=== PATIENT | male | born 1940 | race Caucasian/White ===

== ENCOUNTER 2017-11-16 11:11 | Day surgery (SDC) | payer MEDICARE ==
[2017-11-14 11:29] VITALS: BMI 24.7
[~2017-11-16 11:11] MED LIST: LACTATED RINGERS 1,000 ML IV ONE; LIDOCAINE 1% 20 ML VIAL (10MG/ML) FOR IV START INTRADERMA PRN
[2017-11-16 11:57] VITALS: RESP 16; TEMP 98
[2017-11-16] MEDS ORDERED: LIDOCAINE 1% INJ 10MG/ML (20 ML MDV) ONE (13:11)
[2017-11-16] MEDS ORDERED: PROPOFOL 10 MG/ML 20 ML VIAL IV ONE (13:11)
--- NOTE | 2017-11-16 13:31 | P.PCN ---
Date of Procedure: 11/16/17 Procedure(s) Performed: Brief history: Patient is a pleasant 77-year-old white male, scheduled for an elective upper endoscopy as well as colonoscopy as a part of evaluation of iron deficiency anemia. He was recently noted to have a hemoglobin of 7.9 g/dL and iron indices consistent with iron deficiency anemia. He is been complaint of rectal urgency and frequency but no rectal bleeding. Never had colonoscopy in the past. Procedure performed: Esophagogastroduodenoscopy with biopsy Attempted colonoscopy with biopsy Preoperative diagnosis: Iron deficiency anemia/rectal urgency and rectal frequency Anesthesia: [facility] Procedure: After informed consent was obtained from the patient was brought into the endoscopy unit and IV sedation was administered by anesthesia under continuous monitoring. Initially upper endoscopy was done. The Olympus GF 160 video endoscope was inserted inserted into the mouth and esophagus intubated without any difficulty and was gradually advanced into the stomach and duodenum and carefully examined. The bulb and second part of the duodenum appeared normal. Biopsies were done from duodenum to rule out celiac disease. The scope was then withdrawn into the stomach adequately insufflated with air and upon careful examination the antrum and body, cardia and fundus appeared normal. The scope was then withdrawn into the esophagus. The GE junction was located at 40 cm to the incisors. It appeared regular with 2 superficial erosions consistent with LA grade a reflux esophagitis. Rest of the esophagus appeared normal. Patient tolerated the procedure well. At this time the patient continued to remain sedation. Initial digital rectal examination was normal. Olympus CF 160 video colonoscope was then inserted into the rectum and gradually advanced to the the distal sigmoid colon at at 22 cm from the anal verge there was an ulcerated large sigmoid colon mass identified with significant luminal narrowing. I removed the scope and pediatric colonoscope was then introduced into the rectum and advanced into the distal sigmoid colon and despite multiple times I was not able to pass the scope through the ulcerated mass. At this time multiple biopsies were done from the sigmoid mass. The rectum appeared normal. Retroflexion was performed in the rectum and no lesions were noted. Patient tolerated the procedure well. Impression: 1. Upper endoscopy revealed mild reflux esophagitis but no evidence of peptic ulcer disease 2. Colonoscopy revealed near obstructing distal sigmoid colon ulcerated mass in the scope could not be advanced beyond the mass. Status post multiple biopsies. Recommendations: Findings of this examination were discussed with the patient as well as as his family. He was advised to follow with the biopsy results. He will be scheduled for a CT of the abdomen and pelvis. He will be seen in the office next week.
[2017-11-16 14:10] VITALS: BP 125/67; PULSE 62
== END 2017-11-16 14:32 | disposition home or self-care (01) ==
LOC: ORWHC2ENDO 11:11
PROVIDERS: ATTEND Internal Medicine Gastroenterology
DX: C18.7 Malignant neoplasm of sigmoid colon (principal); K21.0 Gastro-esophageal reflux disease with esophagitis; K22.10 Ulcer of esophagus without bleeding; D50.9 Iron deficiency anemia, unspecified; R15.2 Fecal urgency; I48.91 Unspecified atrial fibrillation; I10 Essential (primary) hypertension; Z88.0 Allergy status to penicillin; Z79.899 Other long term (current) drug therapy; Z87.891 Personal history of nicotine dependence
CPT/HCPCS: 88305; 43239; 45331; J2001; J2704

== ENCOUNTER → 2017-12-05 | Outpatient (CLI) | payer MEDICARE ==
[2017-12-05 15:53] LABS: Anisocytosis Slight; Basophils % (A) 0 %; Eosinophils # (A) 0.2 k/uL (0-0.7); Eosinophils % (A) 3 %; HCT 32.9 % (39.0-53.0); HGB 9.7 gm/dL (13.0-17.5); Hypochromasia Marked; Lymphocytes # (A) 1.3 k/uL (1.0-4.8); Lymphocytes % (A) 21 %; MCHC 29.3 g/dL (31.0-37.0); MCV 78.3 fL (80.0-100.0); Mean Platelet Volume 6.6; Microcytosis Slight; Monocytes # (A) 0.3 k/uL (0-1.0); Monocytes % (A) 4 %; Neutrophils # (A) 4.5 k/uL (1.3-7.7); Neutrophils % (A) 70 %; Platelet Count 280 k/uL (150-450); RDW 19.2 % (11.5-15.5); WBC 6.4 k/uL (3.8-10.6)
[2017-12-05 15:57] LABS: Anion Gap 12 mmol/L; Blood Urea Nitrogen 11 mg/dL (9-20); Calcium 9.3 mg/dL (8.4-10.2); Carbon Dioxide 26 mmol/L (22-30); Chloride 105 mmol/L (98-107); Glucose 90 mg/dL (74-99); Potassium 4.2 mmol/L (3.5-5.1); Sodium 143 mmol/L (137-145)
[2017-12-05 17:01] LABS: INR 1.1 (<1.2); Partial Thromboplastin Time 24.8 sec (22.0-30.0); Prothrombin Time 10.3 sec (9.0-12.0)
== END | disposition home or self-care (01) ==
LOC: LABWHC1 14:43
PROVIDERS: ATTEND Surgery
DX: C18.9 Malignant neoplasm of colon, unspecified (principal)
CPT/HCPCS: 36415; 80048; 85025; 85610; 85730

== ENCOUNTER 2017-12-11 10:08 | Inpatient (IN) | payer MEDICARE ==
[2017-12-06 12:51] VITALS: BMI 24.3
[~2017-12-11 10:08] MED LIST changes: +DEXAMETHASONE SOD PHOSPHATE 10 MG/ML 1 ML VIAL IV ONE; +HEPARIN SODIUM,PORCINE 5,000 UNIT/ML 1 ML VIAL SQ ONE; -LACTATED RINGERS 1,000 ML IV ONE; +LACTATED RINGERS 1,000 ML IV SCH; -LIDOCAINE 1% 20 ML VIAL (10MG/ML) FOR IV START INTRADERMA PRN; +MORPHINE SULFATE 4MG/4ML SYRG IV PRN; +ONDANSETRON 4 MG/2 ML VIAL IVP ONE; +ceFAZolin IN SWFI 2 GM/20 ML SYRINGE IVP ONE; +metroNIDAZOLE-NS PMX 500 MG in SALINE 1 100ML.BAG IVPB ONE
[2017-12-11] MEDS ORDERED: LIDOCAINE 1% 20 ML VIAL (10MG/ML) FOR IV START INTRADERMA ONE (11:05)
[2017-12-11] MEDS ORDERED: CLINDAMYCIN 600 MG in DEXTROSE 5% IN WATER 50 ML IVPB STA ×2 (11:38)
[2017-12-11] MEDS ORDERED: SUCCINYLCHOLINE CHLORIDE 100 MG/5 ML SYR IV ONE (12:34)
[2017-12-11] MEDS ORDERED: ePHEDrine SULFATE/0.9% NACL/PF 50 MG/5 ML SYRINGE IV ONE (12:34)
[2017-12-11] MEDS ORDERED: fentaNYL (PF) 50 MCG/ML 2 ML AMP ONE (12:34)
[2017-12-11] MEDS ORDERED: ROCURONIUM BROMIDE 10 MG/ML 10 ML VIAL IV ONE (12:34)
[2017-12-11] MEDS ORDERED: LIDOCAINE 1% INJ 10MG/ML (20 ML MDV) ONE (12:34)
[2017-12-11] MEDS ORDERED: NEOSTIGMINE 1 MG/ML 10 ML VIAL ONE (12:34)
[2017-12-11] MEDS ORDERED: PROPOFOL 10 MG/ML 20 ML VIAL IV ONE (12:34)
[2017-12-11] MEDS ORDERED: GLYCOPYRROLATE 0.2 MG/ML 2 ML VIAL ONE (12:34)
[2017-12-11] MEDS ORDERED: BUPIVACAINE (PF) 0.25% 30 ML VIAL SQ ONE ×2 (13:00)
[2017-12-11] MEDS ORDERED: LACTATED RINGERS 1,000 ML IV ONE ×2 (13:10→14:38)
[2017-12-11] MEDS ORDERED: ONDANSETRON 4 MG/2 ML VIAL IVP ONE (15:32)
--- NOTE | 2017-12-11 15:32 | P.OP ---
Date of Procedure: 12/11/17 Preoperative Diagnosis: Colon adenocarcinoma Postoperative Diagnosis: Colon adenocarcinoma Procedure(s) Performed: Sigmoid colectomy with primary anastomosis Anesthesia: AMEYA Surgeon: Duong Delarosa Director Clinical Data #1: Kendall Malhotra Estimated Blood Loss (ml): 100 Pathology: other (Sigmoid colon) Condition: stable Disposition: floor Indications for Procedure: 77-year-old male presented originally to the surgical clinic after a colonoscopy revealed a near obstructing mass in the sigmoid. Biopsies were taken at that time that revealed colon adenocarcinoma. This was at approximately the 22 cm ariel. After discussion with the patient was decided to remove this portion of his colon. Patient was excellent the risks, benefits and alternatives to the procedure. He did provide consent prior to attending the operating suite. Operative Findings: Sigmoid colon mass, adhered to move lower pelvic wall, bladder Description of Procedure: The patient was brought into the operating suite and placed in supine position on the operating table. Sedation was provided by anesthesia and the patient underwent endotracheal intubation. The patient was then placed in lithotomy position. The patient was then prepped and draped in regular sterile fashion. A supraumbilical vertical incision was made dissection was carried to the fascia the fascia was incised and a 12 mm port was placed. Pneumoperitoneum was then achieved. The patient was then placed in appropriate position and the scope was placed into the abdomen. The sigmoid colon was clearly visualized at this point. An additional 5 mm port was placed in the right lower quadrant. The small bowel was then removed from the pelvis and into the right upper quadrant. It was immediately apparent that the sigmoid colon had adhered to the lower pelvic wall anteriorly and possibly the bladder as well. This was densely adherent. Dissection was then made with both blunt and electrocautery dissection along the white line of Toldt freeing the sigmoid colon up towards the left colon. The patient did have a redundant sigmoid colon and an adequate amount of colon was noted to be free for a possible anastomosis. Due to the adherence of the sigmoid to the anterior pelvic wall a infraumbilical vertical midline incision was made and dissection was carried to the fascia. The fascia was incised and the peritoneum was entered. The peritoneum was incised along the length of the incision. Blunt dissection was used to dissect this colon from the anterior pelvic wall. This is the site of the palpable mass. Once this was completely removed, dissection was made to anticipate a proximal and distal point of transection. A distal point of transection was chosen. A window was created in the mesentery and a 60 mm's endoscopic stapler device was used to transect the distal portion. LigaSure device was then used to dissect the mesentery towards the anticipated proximal transection point. Proximal transection was also performed with a endoscopic 60 mm staple load. At this point hemostasis was noted to be maintained. Dilators were then placed through the anus into the rectum and it was decided that a 29 mm EEA stapler would be used for anastomosis. The proximal and had a 3-0 silk suture placed in pursestring fashion and the anvil was placed through a colotomy. The EEA device was placed in appropriate position within the rectum and towards the sigmorectal junction. The anvil was then adhered to the EEA stapler and anastomosis was created. At this 0.2 donuts were noted in the EEA stapler. A leak test was performed by entering air into the colon using a rigid proctoscope. There is no evidence of any leak. Irrigation was then placed within the abdomen. This was suctioned free. The fascia was then closed with a running 0 PDS suture. Skin incision was closed with a running 4-0 Vicryl subcuticular suture. All additional skin incisions were closed with 4-0 Vicryl subcuticular suture. The patient was awakened in the operating suite and taken to postanesthesia care unit in stable condition.
[2017-12-11] MEDS ORDERED: MORPHINE SULFATE 4MG/4ML SYRG IVP PRN (16:22)
[2017-12-11] MEDS ORDERED: ONDANSETRON 4 MG/2 ML VIAL IVP PRN (16:22)
[2017-12-11] MEDS: SODIUM CHLORIDE 0.9% 1,000 ML IV SCH (17:19)
[2017-12-11] MEDS: KETOROLAC 30 MG/ML 1 ML VIAL IVP PRN (17:37)
[2017-12-11] MEDS: METOCLOPRAMIDE 5 MG/ML 2 ML VIAL IVP SCH ×2 (17:38→23:30)
[2017-12-11] MEDS: TIMOLOL 0.5% OPHTH DROPS 5 ML BTL BOTH EYES SCH (21:14)
[2017-12-11] MEDS: LATANOPROST 0.005% OPHTH DROPS 2.5 ML BTL BOTH EYES SCH (21:14)
[2017-12-12] MEDS: SODIUM CHLORIDE 0.9% 1,000 ML IV SCH ×3 (02:30→16:48)
[2017-12-12] MEDS: METOCLOPRAMIDE 5 MG/ML 2 ML VIAL IVP SCH ×3 (07:57→17:18)
[2017-12-12] MEDS: ENOXAPARIN 30 MG/0.3 ML SYRINGE SQ SCH (08:54)
[2017-12-12] MEDS: TIMOLOL 0.5% OPHTH DROPS 5 ML BTL BOTH EYES SCH ×2 (08:55→21:19)
[2017-12-12 09:16] LABS: Anisocytosis Slight; Basophils % (A) 0 %; Eosinophils % (A) 0 %; Hypochromasia Marked; Lymphocytes # (A) 1.1 k/uL (1.0-4.8); Lymphocytes % (A) 13 %; MCH 22.9 pg (25.0-35.0); MCHC 29.5 g/dL (31.0-37.0); MCV 77.7 fL (80.0-100.0); Mean Platelet Volume 8.2; Microcytosis Moderate; Monocytes # (A) 0.4 k/uL (0-1.0); Monocytes % (A) 4 %; Neutrophils # (A) 6.9 k/uL (1.3-7.7); Neutrophils % (A) 82 %; Platelet Count 226 k/uL (150-450); RDW 19.9 % (11.5-15.5); WBC 8.4 k/uL (3.8-10.6)
[2017-12-12 09:17] LABS: HGB 8.2 gm/dL (13.0-17.5)
[2017-12-12 09:31] LABS: Anion Gap 9 mmol/L; Blood Urea Nitrogen 13 mg/dL (9-20); Calcium 8.2 mg/dL (8.4-10.2); Carbon Dioxide 24 mmol/L (22-30); Chloride 106 mmol/L (98-107); Glucose 162 mg/dL (74-99); Potassium 3.9 mmol/L (3.5-5.1); Sodium 139 mmol/L (137-145)
[2017-12-12] MEDS: KETOROLAC 30 MG/ML 1 ML VIAL IVP PRN ×2 (12:43→17:19)
--- NOTE | 2017-12-12 17:02 | P.PN ---
Subjective Progress Note Date: 12/12/17 Pt seen and examined at bedside. States he is feeling well. No nausea, denies vomiting. Denies flatus. Denies bowel movement. Has had difficulty with urinating and has needed straight cath x2 since surgery. He states he has difficulty urinating at home for the past 2 years. Objective - Vital Signs Vital signs: Vital Signs Temp 97.7 F 12/12/17 14:42 Pulse 61 12/12/17 14:42 Resp 16 12/12/17 14:42 BP 124/68 12/12/17 14:42 Pulse Ox 97 12/12/17 14:42 Intake & Output 12/11/17 12/12/17 12/12/17 18:59 06:59 18:59 Intake Total 2464 Output Total 225 700 300 Balance 2239 -700 -300 Intake: IV 2104 Oral 360 Output: Urine 125 700 300 Straight 300 Uretheral (Roldan) 700 Estimated Blood Loss 100 - Constitutional General appearance: Present: cooperative, no acute distress - Neck Neck: Present: normal ROM - Respiratory Details: no difficulty with respiration - Gastrointestinal Gastrointestinal Comment(s): soft, appropriate tenderness, nondistended, no rebound, no guarding, incision sites C/D/I - Psychiatric Psychiatric: Present: A&O x's 3, appropriate affect - Labs CBC & Chem 7: 12/12/17 08:46 12/12/17 08:46 Labs: Abnormal Lab Results - Last 24 Hours (Table) 12/12/17 12/12/17 Range/Units 08:46 08:46 RBC 3.60 L (4.30-5.90) m/uL Hgb 8.2 L D (13.0-17.5) gm/dL Hct 28.0 L (39.0-53.0) % MCV 77.7 L (80.0-100.0) fL MCH 22.9 L (25.0-35.0) pg MCHC 29.5 L (31.0-37.0) g/dL RDW 19.9 H (11.5-15.5) % Glucose 162 H (74-99) mg/dL Calcium 8.2 L (8.4-10.2) mg/dL Assessment and Plan (1) Cancer of sigmoid colon Narrative/Plan: POD #1 Sigmoid colectomy - Continue increased activity, pt is already ambulating - Await bowel function - Continue CLD - Start flomax, continue to monitor urine function - Incentive spirometry Current Visit: Yes Status: Acute Code(s): C18.7 - MALIGNANT NEOPLASM OF SIGMOID COLON SNOMED Code(s): 021704081
[2017-12-12] MEDS: TAMSULOSIN 0.4 MG CAP.ER.24H PO SCH (17:18)
[2017-12-12] MEDS: LATANOPROST 0.005% OPHTH DROPS 2.5 ML BTL BOTH EYES SCH (21:19)
[2017-12-13] MEDS: METOCLOPRAMIDE 5 MG/ML 2 ML VIAL IVP SCH ×4 (00:18→18:14)
[2017-12-13] MEDS: SODIUM CHLORIDE 0.9% 1,000 ML IV SCH ×3 (04:07→14:59)
[2017-12-13] MEDS: TIMOLOL 0.5% OPHTH DROPS 5 ML BTL BOTH EYES SCH ×2 (08:19→21:25)
[2017-12-13] MEDS: ENOXAPARIN 30 MG/0.3 ML SYRINGE SQ SCH (08:19)
[2017-12-13] MEDS: TAMSULOSIN 0.4 MG CAP.ER.24H PO SCH (08:19)
[2017-12-13 08:21] LABS: Anion Gap 8 mmol/L; Blood Urea Nitrogen 9 mg/dL (9-20); Calcium 8.2 mg/dL (8.4-10.2); Carbon Dioxide 24 mmol/L (22-30); Chloride 110 mmol/L (98-107); Glucose 87 mg/dL (74-99); Potassium 3.7 mmol/L (3.5-5.1); Sodium 142 mmol/L (137-145)
[2017-12-13 09:41] LABS: Anisocytosis Slight; Basophils % (A) 0 %; Eosinophils # (A) 0.1 k/uL (0-0.7); Eosinophils % (A) 2 %; HCT 27.3 % (39.0-53.0); Hypochromasia Marked; Lymphocytes # (A) 1.3 k/uL (1.0-4.8); Lymphocytes % (A) 23 %; MCH 22.7 pg (25.0-35.0); MCHC 29.2 g/dL (31.0-37.0); MCV 77.8 fL (80.0-100.0); Mean Platelet Volume 6.8; Microcytosis Slight; Monocytes # (A) 0.3 k/uL (0-1.0); Monocytes % (A) 6 %; Neutrophils # (A) 3.6 k/uL (1.3-7.7); Neutrophils % (A) 67 %; Platelet Count 218 k/uL (150-450); RDW 19.3 % (11.5-15.5); WBC 5.4 k/uL (3.8-10.6)
--- NOTE | 2017-12-13 14:27 | P.PN ---
Subjective Progress Note Date: 12/13/17 Patient seen and examined at bedside. He states that he has been ambulating. He states he had a small amount of flatus. Since beginning Flomax, he has urinated on his own without the aid of any straight catheterization. He states he is feeling well. He complains of some soreness around his incision. He has no additional complaints at this time. Objective - Vital Signs Vital signs: Vital Signs Temp 97.3 F L 12/13/17 07:00 Pulse 83 12/13/17 07:00 Resp 16 12/13/17 07:00 BP 131/75 12/13/17 07:00 Pulse Ox 98 12/13/17 07:00 Intake & Output 12/12/17 12/13/17 12/13/17 18:59 06:59 18:59 Intake Total 1350 200 Output Total 425 400 Balance 925 -200 Weight 77.111 kg Intake: Intake, IV Titration 750 Amount Sodium Chloride 0.9% 1, 750 000 ml @ 125 mls/hr IV . Q8H [facility] Rx#:[id number] Oral 600 200 Output: Urine 425 400 Straight 300 Other: Voiding Method Toilet Toilet # Voids 3 - Constitutional General appearance: Present: cooperative - Neck Neck: Present: normal ROM - Respiratory Details: No difficulty with respiration - Gastrointestinal Gastrointestinal Comment(s): Soft, nontender, nondistended, no rebound, no guarding, incision sites are clean , dry and intact - Psychiatric Psychiatric: Present: A&O x's 3 - Labs CBC & Chem 7: 12/13/17 07:35 12/13/17 07:35 Labs: Abnormal Lab Results - Last 24 Hours (Table) 12/13/17 12/13/17 Range/Units 07:35 07:35 RBC 3.50 L (4.30-5.90) m/uL Hgb 8.0 L (13.0-17.5) gm/dL Hct 27.3 L (39.0-53.0) % MCV 77.8 L (80.0-100.0) fL MCH 22.7 L (25.0-35.0) pg MCHC 29.2 L (31.0-37.0) g/dL RDW 19.3 H (11.5-15.5) % Chloride 110 H (98-107) mmol/L Calcium 8.2 L (8.4-10.2) mg/dL Assessment and Plan (1) Cancer of sigmoid colon Narrative/Plan: POD #2 Sigmoid colectomy - Continue increased activity, pt is already ambulating - Await further bowel function - Will advance to full liquid diet - Continue Flomax - Incentive spirometry Current Visit: Yes Status: Acute Code(s): C18.7 - MALIGNANT NEOPLASM OF SIGMOID COLON SNOMED Code(s): 789073437
[2017-12-13] MEDS ORDERED: diphenhydrAMINE 25 MG CAP PO PRN (14:45)
[2017-12-13] MEDS ORDERED: HYDROcodone/APAP 5-325MG 1 EACH TAB PO PRN (17:03)
[2017-12-13] MEDS: LATANOPROST 0.005% OPHTH DROPS 2.5 ML BTL BOTH EYES SCH (21:40)
[2017-12-14] MEDS: METOCLOPRAMIDE 5 MG/ML 2 ML VIAL IVP SCH ×4 (01:01→10:48)
[2017-12-14] MEDS: SODIUM CHLORIDE 0.9% 1,000 ML IV SCH ×2 (01:15→10:33)
[2017-12-14 07:36] VITALS: BP 141/65; PULSE 66; RESP 16; TEMP 98.1
[2017-12-14] MEDS: TAMSULOSIN 0.4 MG CAP.ER.24H PO SCH (08:04)
[2017-12-14] MEDS: ENOXAPARIN 30 MG/0.3 ML SYRINGE SQ SCH (08:05)
[2017-12-14] MEDS: TIMOLOL 0.5% OPHTH DROPS 5 ML BTL BOTH EYES SCH (08:05)
[2017-12-14 08:40] LABS: Anisocytosis Slight; Basophils % (A) 0 %; Eosinophils # (A) 0.2 k/uL (0-0.7); Eosinophils % (A) 4 %; HCT 28.9 % (39.0-53.0); HGB 8.4 gm/dL (13.0-17.5); Hypochromasia Marked; Lymphocytes # (A) 1.2 k/uL (1.0-4.8); Lymphocytes % (A) 25 %; MCH 22.6 pg (25.0-35.0); MCHC 29.1 g/dL (31.0-37.0); MCV 77.6 fL (80.0-100.0); Mean Platelet Volume 8.1; Microcytosis Moderate; Monocytes # (A) 0.3 k/uL (0-1.0); Monocytes % (A) 7 %; Neutrophils # (A) 2.9 k/uL (1.3-7.7); Neutrophils % (A) 63 %; Platelet Count 219 k/uL (150-450); RBC 3.72 m/uL (4.30-5.90); RDW 19.8 % (11.5-15.5); WBC 4.6 k/uL (3.8-10.6)
[2017-12-14 09:39] LABS: Anion Gap 10 mmol/L; Blood Urea Nitrogen 4 mg/dL (9-20); Calcium 8.6 mg/dL (8.4-10.2); Carbon Dioxide 23 mmol/L (22-30); Chloride 109 mmol/L (98-107); Glucose 90 mg/dL (74-99); Potassium 3.8 mmol/L (3.5-5.1); Sodium 142 mmol/L (137-145)
--- NOTE | 2017-12-14 11:43 | P.DS ---
Providers Date of admission: 12/11/17 10:08 Expected date of discharge: 12/14/17 Attending physician: Duong Medley DO Primary care physician: Stated None Hospital Course: 77-year-old male who presented originally to the surgical clinic after his colonoscopy showed a near obstructing mass in the sigmoid. Patient on November 16 had elected to undergo an upper as well as a colonoscopy as part of evaluation for iron deficiency anemia. He was recently noted to have a hemoglobin of 7.9 and iron studies were consistent with iron deficient Patient underwent on December 11 a sigmoid colectomy with primary anastomosis for colon adenocarcinoma There were no postop events. On the day of discharge was felt to be hemodynamically stable and appropriate to proceed with a discharge to home Impression discharge diagnosis History of rectal urgency and frequency with no rectal bleeding iron deficiency anemia A recent colonoscopy November 16 revealed a near obstructing distal sigmoid colon ulcerative mass in the scope could not be advanced beyond the mass biopsies obtained Upper endoscopically November 16 mild reflux esophagitis no evidence of peptic ulcer disease Sigmoid colectomy with primary anastomosis due to colon anastomosis done on December 11 The above impression and plan of care have been discussed and directed by signing physician. Katja Reese nurse practitioner acting as scribe for signing physician. Plan - Discharge Summary Discharge Rx Participant: Yes New Discharge Prescriptions: New HYDROcodone/APAP 5-325MG [[place] 5-325] 1 each PO Q6HR PRN #20 tab PRN Reason: Pain Continue Latanoprost Ophth [Xalatan 0.005%] 1 drops BOTH EYES HS Timolol 0.5% Ophth Soln [Timoptic 0.5% Ophth Soln] 1 drop BOTH EYES BID Eye Vitamins 1 tab PO DAILY Multivitamins, Thera [Multivitamin (formulary)] 1 tab PO DAILY Barley Green Supplement 1 dose PO DAILY Iron 25mg 25 mg PO DAILY Discharge Medication List Eye Vitamins 1 tab PO DAILY 11/14/17 [History] Latanoprost Ophth [Xalatan 0.005%] 1 drops BOTH EYES HS 11/14/17 [History] Timolol 0.5% Ophth Soln [Timoptic 0.5% Ophth Soln] 1 drop BOTH EYES BID [History] Barley Green Supplement 1 dose PO DAILY 12/10/17 [History] Multivitamins, Thera [Multivitamin (formulary)] 1 tab PO DAILY 12/10/17 [History ] Iron 25mg 25 mg PO DAILY 12/11/17 [History] HYDROcodone/APAP 5-325MG [[place] 5-325] 1 each PO Q6HR PRN #20 tab 12/14/17 [Rx] Follow up Appointment(s)/Referral(s): [facility], [NON-STAFF] - As Needed Duong Medley DO [Doctor of Osteopathic Medicine] - 1 Week Activity/Diet/Wound Care/Special Instructions: NO DRESSING NEEDED. LIGHT GAUZE IF YOU WISH. SHOWER OK, NO SCRUBBING INCISION. NO BATHS OR SWIMMING. WALK MUCH TOLERATED. NO LIFTING WEIGHT MORE THEN A GALLON OF MILK. SOFT FOODS DIET. NO CHIPS OR STEAK ETC. TYLENOL OR MOTRIN FOR PAIN. RX PAIN MEDS ONLY IF NEEDED. TAKE STOOL SOFTENER ORDERED. FOLLOW WITH DR. MEDLEY AT OUTPT APPT. Discharge Disposition: HOME SELF-CARE
--- NOTE | 2017-12-17 15:08 | CDI ---
Last Revision, August 2017 Documentation Clarification Form Date: 12/17/2017 12:00:00 AM From: YONI Nichole; Maria C Angeles Accounting Consultant Phone: If you have a question about this query, please contact Maria C Angeles Accounting Consultant at [phone] between 8am and 5pm. Admit Date: 12/11/2017 10:08:00 AM Patient Name: Juan Daniel Dempsey Visit Number: [id number] Discharge Date: 12/14/2017 ATTENTION: The Clinical Documentation Specialists (CDI) and [facility] Coding Staff appreciate your assistance in clarifying documentation. Please respond to the clarification below the line at the bottom and electronically sign. The CDI & [facility] Coding staff will review the response and follow-up if needed. Please note: Queries are made part of the Legal Health Record. If you have any questions, please contact the author of this message via ITS. Dr. Duong Delarosa The patient presented for sigmoid colectomy. 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 In your professional opinion, do you agree with the pathology report specifying metastasis to the lumph nodes? Yes No Other (please specify) Unable to determine ____Yes MTDD
== END 2017-12-14 13:53 | disposition home health service (06) | DRG 330 ==
LOC: 2ORMAIN 10:08 → 4MS4W 15:15
PROVIDERS: ADMIT Surgery; ATTEND Surgery
PROC: 0DBN0ZZ Excision of Sigmoid Colon, Open Approach (ICD-10-PCS; principal; 2017-12-11 12:00)
DX: C18.7 Malignant neoplasm of sigmoid colon (principal); C77.2 Secondary and unspecified malignant neoplasm of intra-abdominal lymph nodes; H26.9 Unspecified cataract; D50.9 Iron deficiency anemia, unspecified; K21.0 Gastro-esophageal reflux disease with esophagitis; I10 Essential (primary) hypertension; Z79.899 Other long term (current) drug therapy; Z88.0 Allergy status to penicillin; Z87.891 Personal history of nicotine dependence
CPT/HCPCS: 80048; 85025; 86850; 86900; 86901; 88309; 93005; 94760

== ENCOUNTER → 2018-06-15 | Outpatient (CLI) | payer MEDICARE ==
--- NOTE | 2018-06-15 16:16 | PE ---
EXAMINATION TYPE: PET CT fusion skull to thigh DATE OF EXAM: 06/15/2018 COMPARISON: NONE HISTORY: Colon cancer initial staging study. Cancer diagnosed on colonic resection December 11, 2017 TECHNIQUE: Following the intravenous administration of 13.31 mCi of F-18 FDG, whole body images are performed from the skull base to the midthigh. Images are reviewed on the computer in the coronal, a xial, and sagittal planes. Reconstructed rotating images are created on independent workstation and reviewed on the computer. A noncontrast CT is performed in conjunction with the PET scan. SCAN: Initial Scan FINDINGS: SKULL BASE AND NECK: No suspicious hypermetabolic uptake is present. CHEST, MEDIASTINUM, AND HILAR REGION: No suspicious hypermetabolic uptake is seen. ABDOMEN AND PELVIS: Sutures from partial colectomy and reanastomosis sigmoid rectal colon near axial image 218 is present. Mild uptake at this level is nonspecific presumed related to recent surgery, lo thomas recurrent neoplasm would be extremely unlikely but should be correlated with pathology results of margins and findings at time of colonoscopy and/or surgery. There is no suspicious hypermetabolic up take otherwise seen in the abdomen or pelvis to suggest metastatic malignancy. Normal excretion is no artis. OSSEOUS STRUCTURES: No suspicious hypermetabolic uptake is seen. OTHER CT: Moderate to severe coronary artery calcification in LAD distribution is seen, noted marker for coronary artery disease. There is 1.2 cm mucous retention cyst or polyp in inferior right maxillary sinus. There is mild to moderate calcified plaque at bilateral carotid bulb level. There is 3.5 cm ectasia of the ascending aorta axial image 96. There is heterogeneous enlarged prostate gland suspicious for BPH, correlate clinically. Scattered pe lvic phleboliths are present. There is multilevel spurring in the thoracolumbar spine. There is facet arthropathy lower lumbar leve ls. IMPRESSION: Nonspecific uptake at surgery site, no evidence for metastatic disease.
== END | disposition home or self-care (01) ==
LOC: RADPETMAIN 10:07
PROVIDERS: ATTEND Internal Medicine
DX: R94.8 Abnormal results of function studies of other organs and systems (principal); C18.7 Malignant neoplasm of sigmoid colon; Z90.49 Acquired absence of other specified parts of digestive tract
CPT/HCPCS: 78815; A9552

== ENCOUNTER 2018-12-20 08:32 | Day surgery (SDC) | payer MEDICARE ==
[2018-12-18 18:13] VITALS: BMI 20.7
[~2018-12-20 08:32] MED LIST changes: -DEXAMETHASONE SOD PHOSPHATE 10 MG/ML 1 ML VIAL IV ONE; -HEPARIN SODIUM,PORCINE 5,000 UNIT/ML 1 ML VIAL SQ ONE; -MORPHINE SULFATE 4MG/4ML SYRG IV PRN; -ONDANSETRON 4 MG/2 ML VIAL IVP ONE; -ceFAZolin IN SWFI 2 GM/20 ML SYRINGE IVP ONE; -metroNIDAZOLE-NS PMX 500 MG in SALINE 1 100ML.BAG IVPB ONE
[2018-12-20 09:18] VITALS: RESP 16; TEMP 98.6
[2018-12-20] MEDS ORDERED: LIDOCAINE 1% 20 ML VIAL (10MG/ML) FOR IV START INTRADERMA ONE (09:29)
[2018-12-20] MEDS ORDERED: PROPOFOL 10 MG/ML 20 ML VIAL IV ONE (09:45)
--- NOTE | 2018-12-20 10:14 | P.PCN ---
Date of Procedure: 12/20/18 Procedure(s) Performed: BRIEF HISTORY: Patient is a 78-year-old pleasant white male, scheduled for an elective colonoscopy as a part of surveillance of form history of colon cancer diagnosed in November 2017 and subsequently underwent surgery. Colonoscopy November 2017 showed near complete obstructing mass in the distal sigmoid colon at 20 cm from the anal verge. Recently was noted to have iron deficiency anemia and intermittent rectal bleeding and hence he scheduled for a surveillance colonoscopy today. PROCEDURE PERFORMED: Attempted Colonoscopy with biopsy. PREOPERATIVE DIAGNOSIS: History of distal sigmoid cancer diagnosed in November 2017 status post surgery/recurrent iron deficiency anemia and rectal bleeding. IV sedation per Anesthesia. PROCEDURE: After informed consent was obtained, the patient, was brought into the endoscopy unit. IV sedation was administered by Anesthesia under continuous monitoring. Digital rectal examination was normal. Initially the Olympus CF-160 flexible video colonoscope was then inserted in the rectum, gradually advanced into the proximal rectum there was a circumferential ulcerated near upsetting mass noted and I could not advance the scope. The scope was removed and a pediatric colonoscope was then introduced the rectum and despite multiple times I was not able to advance the scope through the mass area and this mass extended from 13 cm to almost 20 cm from the anal verge. Multiple biopsies were done from the ulcerated mass. The distal rectum appeared normal. Retroflexion was performed in the rectum and no lesions were seen. The patient tolerated the procedure well. IMPRESSION: Near obstructing ulcerated proximal rectal mass at 13 cm from the anal verge and scope could not be advanced through this area RECOMMENDATIONS: Findings of this examination were discussed with the patient as well as family. He was advised to follow with the biopsy results. He will be referred to oncology for further management.
[2018-12-20 10:50] VITALS: BP 155/70; PULSE 66
== END 2018-12-20 11:19 | disposition home or self-care (01) ==
LOC: ORWHC2ENDO 08:32
PROVIDERS: ATTEND Internal Medicine Gastroenterology
DX: C20 Malignant neoplasm of rectum (principal); D50.9 Iron deficiency anemia, unspecified; C18.7 Malignant neoplasm of sigmoid colon; I10 Essential (primary) hypertension; I34.1 Nonrheumatic mitral (valve) prolapse; Z86.79 Personal history of other diseases of the circulatory system; Z79.899 Other long term (current) drug therapy; Z88.0 Allergy status to penicillin
CPT/HCPCS: 88305; 45331; J2704

== ENCOUNTER → 2019-01-04 | Outpatient (CLI) | payer MEDICARE ==
--- NOTE | 2019-01-06 07:45 | PE ---
EXAMINATION TYPE: PET CT fusion skull to thigh DATE OF EXAM: 01/04/2019 COMPARISON: PET CT June 15, 2018. HISTORY: Colorectal cancer progress study. History of surgery 2018. TECHNIQUE: Following the intravenous administration of 14.0 mCi of F-18 FDG, whole body images are p erformed from the skull base to the midthigh. Images are reviewed on the computer in the coronal, ax ial, and sagittal planes. Reconstructed rotating images are created on independent workstation and r eviewed on the computer. A noncontrast CT is performed in conjunction with the PET scan. SCAN: Subsequent Scan FINDINGS: SKULL BASE AND NECK: No new areas of suspicious hypermetabolic uptake. CHEST, MEDIASTINUM, AND HILAR REGION: No new areas of suspicious hypermetabolic uptake. ABDOMEN AND PELVIS: Redemonstration of surgical change involving the distal colon near axial image 22 7. There is more prominent moderate to severe wall thickening at this level with hypermetabolic uptak e, max SUV is 14.28. Some adjacent prominent but suspicious subcentimeter lymph nodes are noted witho ut definitive abnormal hypermetabolic uptake. No new areas of abnormal hypermetabolic uptake otherwise visualized. OSSEOUS STRUCTURES: No new areas of abnormal hypermetabolic uptake. OTHER CT: Mild/moderate calcified plaque bilateral carotid bulbs. Mild to moderate underlying emphysematous change. Mild/moderate coronary artery calcification which i s noted marked underlying coronary artery disease. Mild cardiomegaly. Low dense thickening to both adrenal glands favors benign hyperplasia. Stable. No new adrenal masses. Mild/moderate calcified plaque in the aorta extends into branch vessels. Scattered pelvic phlebolith s. Mildly enlarged prostate gland consistent with BPH. There is facet arthropathy lower lumbar spine. There is multilevel spurring in the thoracolumbar spin e. IMPRESSION: More prominent wall thickening and hypermetabolic uptake centered at site of sutures is s uspicious for local neoplastic recurrence. No new metastatic disease identified.
== END | disposition home or self-care (01) ==
LOC: RADPETMAIN 11:19
PROVIDERS: ATTEND Internal Medicine Hematology & Oncology
DX: C20 Malignant neoplasm of rectum (principal); C18.7 Malignant neoplasm of sigmoid colon
CPT/HCPCS: 78815; A9552

== ENCOUNTER → 2019-05-03 | Outpatient (CLI) | payer MEDICARE ==
--- NOTE | 2019-05-05 11:02 | PE ---
EXAMINATION TYPE: PET CT fusion skull to thigh DATE OF EXAM: 05/03/2019 COMPARISON: PET/CT dated 01/04/2019 and 06/15/2018 HISTORY: Colorectal carcinoma with prior surgery on 12/11/2018 and rectal radiation and March 2019. No prior chemotherapy. TECHNIQUE: Following the intravenous administration of 12.359 mCi of F-18 FDG, whole body images are performed from the skull base to the midthigh. Images are reviewed on the computer in the coronal, axial, and sagittal planes. Reconstructed rotating images are created on independent workstation and reviewed on the computer. A localization and attenuation correction CT is performed in conjunction with the PET scan. SCAN: Subsequent treatment strategy FINDINGS: Mediastinal background: 1.56 Abdominal background: 2.62 SKULL BASE AND NECK: No suspicious hypermetabolic uptake CHEST, MEDIASTINUM, AND HILAR REGION: No suspicious hypermetabolic uptake ABDOMEN AND PELVIS: There are focal areas of hypermetabolic uptake within the liver such as within th e medial posterior right hepatic lobe in segment 7 measuring a maximum SUV of 2.9 as well as within t he inferior margin of segment 8 of the maximum SUV of 2.62 and smaller lesion of the most inferior as pect of the posterior right hepatic lobe with a maximum SUV of 2.34. Patchy uptake in the cranial asp ect of the liver is seen without focality. Extrarenal pelvis is incidentally noted on the left, greater than on the right. Periaortic adenopathy is seen with a lymph node in the left periaortic space having a maximum SUV of 2.33 and measurement of 1.4 cm in short axis on series 3 image 170 with more ill-defined right retrop eritoneal retrocaval lymph node on image 171 measuring approximately 1.1 cm in short axis and having a maximum SUV of 2.5. Other smaller scattered hypermetabolic retroperitoneal lymph nodes are seen wit h another one of the more avid lymph nodes measuring a maximum SUV of 2.4, ill-defined but measuring approximately 8 mm in short axis on series 3 image 191. Hypermetabolic activity throughout the rectum is seen particularly at the level of prostate gland wit h a maximum SUV of 7.98 at this location and a more cranial more avid portion from at the level of S2 -S3 having a maximum SUV of 11.5. There is note of anterior margin ill-defined contour abutting the b owel although no air is currently seen in the bowel to currently suggest fistula formation. Hypermeta bolic uptake continues throughout the sigmoid colon to a lesser degree with a maximum SUV of 15.12. M ultifocal hypermetabolic uptake throughout the bowel likely represents excretion. In the upper abdomen adenopathy is seen with a retroaortic lymph node having a maximum SUV of 2.5 alpa suring approximately 1 cm in short axis on series 3 image 150. Retroaortic avid adenopathy has a maxi mum SUV of 3.66 measuring approximately 1.4 cm in short axis on series 3 image 158. Just above the di aphragmatic hiatus there is a small lymph node that is hypermetabolic to the right of the aorta with a maximum SUV of 2.12 measuring 9 mm in short axis on image 139. OSSEOUS STRUCTURES: Multifocal suspicious uptake is seen, particularly T10-T12 have a maximum SUV at T10 of 2.13, at T11 of 2.22, and at T12 of 1.79. Uptake within the lumbar spine is seen to a lesser d egree and may be degenerative. Similarly in the upper thoracic spine uptake is seen up to 1.7 and cou ld be degenerative or metastatic. OTHER CT: There is leftward nasal septal deviation. Mild mucosal thickening in the ethmoid sinuses. T here is also a 0.3 cm left maxillary mucosal retention cyst. Advanced arthropathy of the cervical spi ne is seen with moderate degenerative changes of the remainder of the spine. Sclerotic lesion of the left iliac bone measures 7 mm likely represents a bone island as it is hypometabolic with a maximum S UV of 0.77. Moderate degenerative changes of the femoral acetabular joints. Moderate atheromatous claudia nge of the abdominal aorta and its branches. Moderate coronary artery calcifications. Heart is mildly enlarged with trace pericardial effusion. Small hiatal hernia. Mild emphysematous changes of the blaire gs. Suspected 2 mm pulmonary nodule versus vascular ectasia of the anterior right upper lobe on image 79, below the threshold of PET CT. Scattered areas of subsegmental atelectasis and linear pleural pa renchymal scarring. Subpleural 3 mm solid pulmonary nodule the right middle lobe on image 123. Minima l biapical pleural parenchymal scarring. Late thickening in the adrenal glands bilaterally although t hey maintain a normal adreniform shape, most commonly related to adrenal gland hyperplasia. No hyperm etabolic activity focally of the adrenal glands. Severe degree colonic fecal stasis. Heterogenous pro state gland with central zone calcifications. IMPRESSION: 1. Long segment hypermetabolic activity of the rectosigmoid colon has a maximum SUV of 11.5. Direct v isualization with flexible sigmoidoscopy is recommended as this is above with is to be expected for p osttreatment change/radiation change. 2. Progression of disease with with numerous retroperitoneal and mesenteric lymph nodes that are hype rmetabolic and enlarged. 3. Findings suspicious for multifocal hepatic metastasis with at least 3 focal suspicious areas of hy permetabolic activity in the liver. 4. Focal uptake of the lower thoracic spine. MRI of the thoracic spine could assess for bone marrow r eplacing process/metastasis.
== END | disposition home or self-care (01) ==
LOC: RADPETMAIN 11:20
PROVIDERS: ATTEND Radiology Radiation Oncology
DX: K68.9 Other disorders of retroperitoneum (principal); E88.89 Other specified metabolic disorders; R59.9 Enlarged lymph nodes, unspecified; C19 Malignant neoplasm of rectosigmoid junction; C20 Malignant neoplasm of rectum; Z87.891 Personal history of nicotine dependence
CPT/HCPCS: 78815; A9552

== ENCOUNTER → 2019-08-30 | Outpatient (CLI) | payer MEDICARE ==
--- NOTE | 2019-09-01 08:22 | PE ---
EXAMINATION TYPE: PET CT fusion skull to thigh DATE OF EXAM: 08/30/2019 COMPARISON: Prior PET/CT May 03, 2019 and older studies HISTORY: Colorectal cancer progress study originally diagnosed in 2018 completed chemotherapy April 01. TECHNIQUE: Following the intravenous administration of 12.359 mCi of F-18 FDG, whole body images are performed from the skull base to the midthigh. Images are reviewed on the computer in the coronal, axial, and sagittal planes. Reconstructed rotating images are created on independent workstation and reviewed on the computer. A noncontrast CT is performed in conjunction with the PET scan. SCAN: Subsequent Scan FINDINGS: SKULL BASE AND NECK: No new areas of suspicious hypermetabolic uptake. CHEST, MEDIASTINUM, AND HILAR REGION: No new areas of suspicious hypermetabolic uptake. ABDOMEN AND PELVIS: There is redemonstration of faint hypermetabolic foci throughout the liver which are more hypermetabolic on current study for reference right hepatic lobe focus image 145 has max SUV of 3.71, likely 1.3 cm hypodense focus on correlating CT. Persistent left retroperitoneal or retrocrural adenopathy left mid abdomen measuring 1.3 x 1.2 cm wit h max SUV of 3.51. Normal excretion is seen. There is persistent hypermetabolic focus sigmoid rectal colon images 220 th rough 232 likely affecting recurrent or residual neoplasm as there are surgical sutures near this lev el redemonstrated. Max SUV is 11.82 Interval improvement in surrounding ill-defined fluid and fat stranding on current study versus most recent prior. No suspicious periaortic hypermetabolic adenopathy in current study. No new areas of abnormal hypermetabolic uptake outside the liver. Suspect persistent prominent left-s ided extrarenal pelvis. OSSEOUS STRUCTURES: No new areas of abnormal hypermetabolic uptake. OTHER CT: There is leftward nasal septal deviation. There is small left maxillary mucosal retention c yst redemonstrated. Moderate calcified plaque bilateral carotid bulb level. Advanced arthropathy of the cervical spine is seen with moderate degenerative changes of the remainde r of the spine. Sclerotic lesion of the left iliac bone likely represents a bone island as it is amet abolic . Moderate degenerative changes of the femoral acetabular joints. Moderate atheromatous change of the abdominal aorta and its branches. Moderate coronary artery calcif ications. Heart is mildly enlarged with trace pericardial effusion. Small hiatal hernia. Mild emphyse matous changes of the lungs. Scattered areas of subsegmental atelectasis and linear pleural parenchym al scarring. Minimal biapical pleural parenchymal scarring. Slight thickening thickening in the adrenal glands bilaterally although they maintain a normal adreni form shape, most commonly related to adrenal gland hyperplasia. No hypermetabolic activity focally of the adrenal glands. Moderate to severe degree colonic fecal stasis. Patient has very little intra-ab dominal fat similar to prior. Heterogenous prominent prostate gland with central zone calcifications. IMPRESSION: Progression of hepatic metastatic disease. Persistent primary or recurrent neoplasm recto sigmoid colon near site of sutures. Persistent mid abdominal periaortic and retrocrural adenopathy wi th some improvement. No new metastatic disease in the thorax.
== END | disposition home or self-care (01) ==
LOC: RADPETMAIN 09:02
PROVIDERS: ATTEND Radiology Radiation Oncology
DX: C78.7 Secondary malignant neoplasm of liver and intrahepatic bile duct (principal); C77.9 Secondary and unspecified malignant neoplasm of lymph node, unspecified; C20 Malignant neoplasm of rectum; C18.7 Malignant neoplasm of sigmoid colon; C19 Malignant neoplasm of rectosigmoid junction; R59.0 Localized enlarged lymph nodes; Z92.3 Personal history of irradiation; Z87.891 Personal history of nicotine dependence
CPT/HCPCS: 78815; A9552

== ENCOUNTER 2019-09-04 08:52 | Inpatient (IN) | payer MEDICARE ==
[2019-09-04] MEDS ORDERED: SODIUM CHLORIDE 0.9% 1,000 ML IV STA (09:51)
[2019-09-04] MEDS ORDERED: ONDANSETRON 4 MG/2 ML VIAL IVP STA (09:51)
--- NOTE | 2019-09-04 09:55 | ED ---
General Adult HPI - General Chief complaint: Abdominal Pain Stated complaint: constipation Time Seen by Provider: 09/04/19 09:15 Source: patient Mode of arrival: ambulatory Limitations: no limitations - History of Present Illness Initial comments: Dictation was produced using [employer] dictation software. please excuse any grammatical, word or spelling errors. Chief Complaint: 79-year-old male with past medical history of rectal cancer p resents with abdominal pain. History of Present Illness: His 79-year-old male who has past medical history of atrial fibrillation, rectal cancer status post cancer treatment. He reports that he is scheduled to have colostomy placement by Dr. Delarosa tomorrow. Patient states his urine emergency department because he feels like he cannot wait that long. Patient states he is not had a bowel movement week. She reports that over the last 48 hours he has not been passing gas either. Points of nausea over does not have any vomiting. He also reports a lack of appetite. Denies any fever, chills or night sweats. The ROS documented in this emergency department record has been reviewed and confirmed by me. Those systems with pertinent positive or negative responses have been documented in the HPI. All other systems are other negative and/or noncontributory. PHYSICAL EXAM: General Impression: Alert and oriented x3, not in acute distress HEENT: Normocephalic atraumatic, extra-ocular movements intact, pupils equal and reactive to light bilaterally, mucous membranes moist. Cardiovascular: Heart regular rate and rhythm, S1&S2 audible, no murmurs, rubs or gallops Chest: Lungs clear to auscultation bilaterally, no rhonchi, no wheeze, no rales Abdomen: Bowel sounds present, abdomen soft, non-tender, non-distended, no organomegaly Musculoskeletal: Pulses present and equal in all extremities, no peripheral edema Motor: no focal deficits noted Neurological: CN II-XII grossly intact, no focal motor or sensory deficits noted Skin: Intact with no visualized rashes Psych: Normal affect and mood ED course: 79-year-old male presents with chief complaint of abdominal pain. Patient has history of recurrent colon/rectal cancer. Vital signs upon arrival are within acceptable limits. Laboratory evaluation obtained. Hemoccult 10.7. No leukocytosis. Coag panel unremarkable. Metabolic panel is negative. No signs of pancreatitis. KUB x- ray shows large bowel obstruction likely mechanical from rectal carcinoma. Discussed patient case with Dr. Delarosa who requests that nasogastric tube be placed and patient be admitted to the surgical service with plans for diverted colostomy tomorrow. Patient is agreeable with this plan. Patient started on maintenance IV fluids. EKG interpretation: Ventricular rate 62, normal sinus rhythm,. Interval 170, QS 104, QTC 450. No TN prolongation, no QTC prolongation, no ST or T-wave changes noted. EKG compared to 12/11/2017 showing no changes. Overall, this EKG is unremarkable - Related Data Home Medications Medication Instructions Recorded Confirmed Latanoprost Ophth [Xalatan 0.005%] 1 drops BOTH EYES HS 11/14/17 09/04/19 Iron 25mg 25 mg PO DAILY 12/11/17 09/04/19 Colostrum (Unknown Med) 1 dose PO BID 10/02/18 09/04/19 Immunokinoko ( Unknown Med) 2 tab PO TID 10/02/18 09/04/19 Protacell 50 ( Unknown Med) 1 tab PO DAILY 10/02/18 09/04/19 Cholecalciferol (Vitamin D3) 2,000 unit PO DAILY 12/18/18 09/04/19 [Vitamin D3] Magnesium Gluconate [Magonate] 500 mg PO DAILY 12/18/18 09/04/19 Potassium 84 meq PO DAILY 12/18/18 09/04/19 Vitamin B Complex 1 cap PO DAILY 12/18/18 09/04/19 Brimonidine Tartrate [Alphagan P 1 drops BOTH EYES BID 09/04/19 09/04/19 0.2% Ophth Soln] Allergies Allergy/AdvReac Type Severity Reaction Status Date / Time Penicillins Allergy Rash/Hives Verified 09/04/19 10:04 Review of Systems ROS Statement: Those systems with pertinent positive or pertinent negative responses have been documented in the HPI. ROS Other: All systems not noted in ROS Statement are negative. Past Medical History Past Medical History: Atrial Fibrillation, Cancer, Mitral Valve Prolapse (MVP) Additional Past Medical History / Comment(s): anemia, occ dizzy spells due to a- fib, trigger finger left hand resolved with turmeric., occasional blood in stool, anemia, Hx of colon cancer with surgery december 2017., POOR VISION -LEFT EYE WORSE. History of Any Multi-Drug Resistant Organisms: None Reported Past Surgical History: Bowel Resection, Orthopedic Surgery Additional Past Surgical History / Comment(s): lump removed from inside rt leg, shahla cataracts, ORIF rt wrist, steroid injections left eye, retina wrinkle s urgery left eye.,. Bowel Resection December 2017 Past Anesthesia/Blood Transfusion Reactions: No Reported Reaction Past Psychological History: No Psychological Hx Reported Smoking Status: Former smoker Past Alcohol Use History: None Reported Past Drug Use History: None Reported - Past Family History Mother Family Medical History: No Reported History General Exam Limitations: no limitations Course Vital Signs 09/04/19 09:00 Temperature 97.4 F L Pulse Rate 82 Respiratory 19 Rate Blood Pressure 114/62 O2 Sat by Pulse 95 Oximetry Medical Decision Making - Lab Data Result diagrams: 09/04/19 10:01 09/04/19 10:01 Lab Results 09/04/19 09/04/19 09/04/19 Range/Units 10:01 10:01 10:01 WBC 7.3 (3.8-10.6) k/uL RBC 3.42 L (4.30-5.90) m/uL Hgb 10.7 L (13.0-17.5) gm/dL Hct 31.8 L (39.0-53.0) % MCV 93.2 (80.0-100.0) fL MCH 31.4 (25.0-35.0) pg MCHC 33.7 (31.0-37.0) g/dL RDW 12.3 (11.5-15.5) % Plt Count 335 (150-450) k/uL Neutrophils % 85 % Lymphocytes % 8 % Monocytes % 4 % Eosinophils % 1 % Basophils % 0 % Neutrophils # 6.2 (1.3-7.7) k/uL Lymphocytes # 0.6 L (1.0-4.8) k/uL Monocytes # 0.3 (0-1.0) k/uL Eosinophils # 0.1 (0-0.7) k/uL Basophils # 0.0 (0-0.2) k/uL PT (9.0-12.0) sec INR (<1.2) APTT (22.0-30.0) sec Sodium 138 (137-145) mmol/L Potassium 3.9 (3.5-5.1) mmol/L Chloride 105 (98-107) mmol/L Carbon Dioxide 25 (22-30) mmol/L Anion Gap 8 mmol/L BUN 15 (9-20) mg/dL Creatinine 0.86 (0.66-1.25) mg/dL Est GFR (CKD-EPI)AfAm >90 (>60 ml/min/1.73 sqM) Est GFR (CKD-EPI)NonAf 82 (>60 ml/min/1.73 sqM) Glucose 90 (74-99) mg/dL Plasma Lactic Acid Micha 0.9 (0.7-2.0) mmol/L Calcium 9.2 (8.4-10.2) mg/dL Total Bilirubin 0.5 (0.2-1.3) mg/dL AST 22 (17-59) U/L ALT 10 (4-49) U/L Alkaline Phosphatase 111 (38-126) U/L Total Protein 6.3 (6.3-8.2) g/dL Albumin 3.4 L (3.5-5.0) g/dL Lipase 80 (23-300) U/L 09/04/19 Range/Units 10:01 WBC (3.8-10.6) k/uL RBC (4.30-5.90) m/uL Hgb (13.0-17.5) gm/dL Hct (39.0-53.0) % MCV (80.0-100.0) fL MCH (25.0-35.0) pg MCHC (31.0-37.0) g/dL RDW (11.5-15.5) % Plt Count (150-450) k/uL Neutrophils % % Lymphocytes % % Monocytes % % Eosinophils % % Basophils % % Neutrophils # (1.3-7.7) k/uL Lymphocytes # (1.0-4.8) k/uL Monocytes # (0-1.0) k/uL Eosinophils # (0-0.7) k/uL Basophils # (0-0.2) k/uL PT 10.7 (9.0-12.0) sec INR 1.0 (<1.2) APTT 27.6 (22.0-30.0) sec Sodium (137-145) mmol/L Potassium (3.5-5.1) mmol/L Chloride (98-107) mmol/L Carbon Dioxide (22-30) mmol/L Anion Gap mmol/L BUN (9-20) mg/dL Creatinine (0.66-1.25) mg/dL Est GFR (CKD-EPI)AfAm (>60 ml/min/1.73 sqM) Est GFR (CKD-EPI)NonAf (>60 ml/min/1.73 sqM) Glucose (74-99) mg/dL Plasma Lactic Acid Micha (0.7-2.0) mmol/L Calcium (8.4-10.2) mg/dL Total Bilirubin (0.2-1.3) mg/dL AST (17-59) U/L ALT (4-49) U/L Alkaline Phosphatase (38-126) U/L Total Protein (6.3-8.2) g/dL Albumin (3.5-5.0) g/dL Lipase (23-300) U/L Disposition Clinical Impression: Mechanical obstruction of the intestine Disposition: ADMITTED IP TO THIS HOSP Condition: Fair Referrals: Mauri Ortiz MD [Primary Care Provider] - 1-2 days Decision Time: 11:47
[2019-09-04 10:34] LABS: Basophils % (A) 0 %; Eosinophils # (A) 0.1 k/uL (0-0.7); Eosinophils % (A) 1 %; HCT 31.8 % (39.0-53.0); HGB 10.7 gm/dL (13.0-17.5); Lymphocytes # (A) 0.6 k/uL (1.0-4.8); Lymphocytes % (A) 8 %; MCH 31.4 pg (25.0-35.0); MCHC 33.7 g/dL (31.0-37.0); MCV 93.2 fL (80.0-100.0); Mean Platelet Volume 6.8; Monocytes # (A) 0.3 k/uL (0-1.0); Monocytes % (A) 4 %; Neutrophils # (A) 6.2 k/uL (1.3-7.7); Neutrophils % (A) 85 %; Platelet Count 335 k/uL (150-450); RBC 3.42 m/uL (4.30-5.90); RDW 12.3 % (11.5-15.5); WBC 7.3 k/uL (3.8-10.6)
[2019-09-04 10:42] LABS: ALT 10 U/L (4-49); AST 22 U/L (17-59); African American GFR (CKD) >90 (>60 ml/min/1.73 sqM); Albumin 3.4 g/dL (3.5-5.0); Alkaline Phosphatase 111 U/L (38-126); Anion Gap 8 mmol/L; Blood Urea Nitrogen 15 mg/dL (9-20); Calcium 9.2 mg/dL (8.4-10.2); Carbon Dioxide 25 mmol/L (22-30); Chloride 105 mmol/L (98-107); Glucose 90 mg/dL (74-99); Non-African American GFR(CKD) 82 (>60 ml/min/1.73 sqM); Potassium 3.9 mmol/L (3.5-5.1); Sodium 138 mmol/L (137-145); Total Bilirubin 0.5 mg/dL (0.2-1.3); Total Protein 6.3 g/dL (6.3-8.2)
[2019-09-04 10:46] LABS: Partial Thromboplastin Time 27.6 sec (22.0-30.0); Prothrombin Time 10.7 sec (9.0-12.0)
--- NOTE | 2019-09-04 10:52 | XR ---
EXAMINATION TYPE: XR KUB DATE OF EXAM: 09/04/2019 10:42 AM CLINICAL HISTORY: Constipation for 8-9 days. History of rectal tumor. TECHNIQUE: Single supine KUB image of the abdomen is obtained. COMPARISON: PET/CT dated 08/30/2019. FINDINGS: Air-fluid levels are seen within nondilated colon. Measures up to 9.[address] asis in the cecum is noted. Posterior bowel gas in the rectum. Lung bases are well aerated. Cardiomed iastinal silhouette is enlarged. Levoscoliosis of the spine with diffuse osseous demineralization and moderate degenerative disease.: IMPRESSION: Findings are most compatible with large bowel obstruction, likely mechanical from the kno wn residual rectal carcinoma seen on the PET/CT of 08/30/2019.
[2019-09-04] MEDS ORDERED: MORPHINE SULFATE 4 MG/ML SYRINGE IV PRN (11:44)
[2019-09-04] MEDS ORDERED: NALOXONE 0.4 MG/ML 1 ML VIAL IV PRN (11:44)
--- NOTE | 2019-09-04 14:31 | XR ---
EXAMINATION TYPE: XR abdomen 1 view DATE OF EXAM: 09/04/2019 , 2:04 PM Comparison: Earlier today, 10:53 AM Clinical History: 79-year-old male Confirm placement NG tube Findings: NG tube is present. The tip is located only 4.3 cm below the GE junction. The side hole is located ab ove the GE junction. The tube can be advanced 7 cm further into the stomach. Gassy distended bowel lo ops are redemonstrated throughout the visualized upper abdomen. Impression: NG tube side hole above the GE junction. Advance 7 cm further into the stomach.
--- NOTE | 2019-09-04 14:38 | XR ---
EXAMINATION TYPE: XR abdomen 1V DATE OF EXAM: 09/04/2019 2:15 PM CLINICAL HISTORY: Enteric tube placement TECHNIQUE: Single supine KUB image of the abdomen is obtained. COMPARISON: Abdominal x-ray of the same date. FINDINGS: Enteric tube has been advanced and now is coiled within the expected region of the stomach. Fenestrated portion is beyond the gastroesophageal junction. Distal aspect is oriented inferiorly. D ilated loops of large bowel are redemonstrated measuring up to 8.3 cm. IMPRESSION: Redemonstration of presumed colonic obstruction secondary to distal rectal known neoplasm . Enteric tube has been advanced and is coiled in the region of the stomach.
--- NOTE | 2019-09-04 17:00 | P.CONS ---
History of Present Illness - Reason for Consult Consult date: 09/04/19 Medical management Requesting physician: Duong Delarosa - Chief Complaint Abdominal pain - History of Present Illness 79-year-old male with PMH of paroxysmal atrial fibrillation, glaucoma, rectal cancer diagnosed in 2017 presents the ED for abdominal discomfort and inability to evacuate his bowels. Patient reports undergoing colonoscopy in November [address] Chavez when he was diagnosed with rectal cancer. Pathology at that time came back positive for adenocarcinoma of the rectum. He underwent colonic resection with Dr. Delarosa in December. In June 2018 patient elected naturopathic solutions to his rectal cancer and elected with no chemo or radiation. In March 2019 he was diagnosed with recurrence of his rectal adenocarcinoma. Since March 2019, patient reports undergoing 22 radiation treatments. He has also found out that the cancer had spread to his liver and lymph nodes. He still refuses to undergo chemotherapy and prefers a natural solutions. Over the past 6-8 weeks, patient had noticed a slow down in bowel movements and reports no bowel movements over the last 5-6 days and inability to pass gas. He also complains of. Umbilical discomfort, unable to describe, 5-7 out of 10 in severity. He denies any headache, lower 70 edema, nausea or vomiting, fever or chills, cough, chest pain, shortness of breath, palpitations, changes in urination. Patient states he has not been able to eat over the past 5 days. He denies any dizziness, numbness/weakness/tingling of the extremities. He did undergo PET scan in August 2019 which redemonstrated hepatic metastatic disease with adenopathy. KUB showed large bowel obstruction likely from rectal tumor. Vital signs were stable. CBC shows hemoglobin of 10.7. Patient is admitted for abdominal pain, small bowel obstruction with Dr. Delarosa on consult. Review of Systems Pertinent positives and negatives as discussed in HPI, a complete review of systems was performed and all other systems are negative. 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 History of Any Multi-Drug Resistant Organisms: None Reported Past Surgical History: Bowel Resection, Orthopedic Surgery Additional Past Surgical History / Comment(s): Bowel resection December 2017, flexible sigmoidoscopies, EGD, lump removed from inside rt leg, ORIF rt wrist with plate/screw, bilateral cataracts removed, laser surgery bilateral eyes, L eye protein removal, steroid injections left eye, retina wrinkle surgery left eye.,. Bowel Resection December 2017 Past Anesthesia/Blood Transfusion Reactions: No Reported Reaction Smoking Status: Former smoker - Past Family History Mother Family Medical History: Respiratory Disorder Additional Family Medical History / Comment(s): Mother had TB Father Family Medical History: No Reported History Additional Family Medical History / Comment(s): Father was healthy Medications and Allergies Home Medications Medication Instructions Recorded Confirmed Type Latanoprost Ophth [Xalatan 0.005%] 1 drops BOTH EYES HS 11/14/17 09/04/19 History Iron 25mg 25 mg PO DAILY 12/11/17 09/04/19 History Colostrum (Unknown Med) 1 dose PO BID 10/02/18 09/04/19 History Immunokinoko ( Unknown Med) 2 tab PO TID 10/02/18 09/04/19 History Protacell 50 ( Unknown Med) 1 tab PO DAILY 10/02/18 09/04/19 History Cholecalciferol (Vitamin D3) 2,000 unit PO DAILY 12/18/18 09/04/19 History [Vitamin D3] Magnesium Gluconate [Magonate] 500 mg PO DAILY 12/18/18 09/04/19 History Potassium 84 meq PO DAILY 12/18/18 09/04/19 History Vitamin B Complex 1 cap PO DAILY 12/18/18 09/04/19 History Brimonidine Tartrate [Alphagan P 1 drops BOTH EYES BID 09/04/19 09/04/19 History 0.2% Ophth Soln] Allergies Allergy/AdvReac Type Severity Reaction Status Date / Time Penicillins Allergy Rash/Hives Verified 09/04/19 10:04 Physical Exam Vitals: Vital Signs Temp Pulse Pulse Resp BP BP Pulse Ox 09/04/19 15:50 97.5 F L 75 18 152/68 98 09/04/19 13:56 98.4 F 83 18 161/73 98 09/04/19 09:00 97.4 F L 82 19 114/62 95 Intake and Output 09/04/19 09/04/19 09/04/19 06:59 14:59 22:59 Other: Weight 64.093 kg General: [non toxic], [no distress], [appears at stated age] Derm: [warm], [dry] Head: [atraumatic], [normocephalic], [symmetric], [NG tube intact] Eyes: [EOMI], [no lid lag], [anicteric sclera] Mouth: [no lip lesion], [mucus membranes moist] Cardiovascular: [S1S2 reg], [systolic murmur], [positive posterior tibial pulse bilateral], Lungs: [CTA bilateral], [no rhonchi, no rales] , [no accessory muscle use] Abdominal: [soft], [ nontender to palpation], [distended], [no appreciable organomegaly] Ext: [no gross muscle atrophy], [no edema], [no contractures] Neuro: [ CN II-XI grossly intact], [no focal neuro deficits] Psych: [Alert], [oriented], [appropriate affect] Results CBC & Chem 7: 09/04/19 10:01 09/04/19 10:01 Labs: Abnormal Lab Results - Last 24 Hours (Table) 09/04/19 09/04/19 Range/Units 10:01 10:01 RBC 3.42 L (4.30-5.90) m/uL Hgb 10.7 L (13.0-17.5) gm/dL Hct 31.8 L (39.0-53.0) % Lymphocytes # 0.6 L (1.0-4.8) k/uL Albumin 3.4 L (3.5-5.0) g/dL Assessment and Plan Assessment: Small bowel obstruction secondary to rectal adenocarcinoma with metastatic disease to the liver and lymph nodes Anemia Paroxysmal atrial fibrillation Glaucoma As seen on KUB. PET scan from August shows metastatic disease to the liver and lymph nodes. Pathology proven adenocarcinoma of the rectum. Plans: General surgery on board for planned colostomy tomorrow. NG tube with suction. Tylenol or morphine as needed for pain. Continue Flagyl. Continue Protonix IV. Continue normal saline and 100 cc/h. Follow oncology consultation. Hemoglobin 10.7. Likely anemia of chronic disease. Plans: Repeat CBC tomorrow morning. EKG shows normal sinus rhythm. Plans: Continue to monitor. Not on antico agulation. Plans: Continue home medication eyedrops. DVT prophylaxis: [SCD boots] Discussed with: [Patient and ] Anticipated discharge: [3-4 days] Anticipated discharge place: [Home] A total of [45] minutes was spent on the care of this complex patient more than 50% of the time was spent in counseling and care coordination. Patient names his son [place] decision maker if he can't make decisions for himself. Patient elects to be no code at this time. His is at bedside. Patient is admitted for greater than 48 hour admission. Thank you for this consult, please call with additional questions.
[2019-09-04] MEDS: LATANOPROST 0.005% OPHTH DROPS 2.5 ML BTL BOTH EYES SCH (21:12)
[2019-09-04] MEDS: BRIMONIDINE TARTRATE 0.2% DROPS 5 ML BTL BOTH EYES SCH (21:13)
[2019-09-05] MEDS: SODIUM CHLORIDE 0.9% 1,000 ML IV SCH ×4 (02:02→21:08)
[2019-09-05] MEDS ORDERED: metroNIDAZOLE-NS PMX 500 MG in SALINE 1 100ML.BAG IVPB ONE (05:00)
[2019-09-05] MEDS ORDERED: HEPARIN SODIUM,PORCINE 5,000 UNIT/ML 1 ML VIAL SQ ONE (05:00)
[2019-09-05] MEDS: PANTOPRAZOLE 40 MG/10 ML VIAL IV SCH (09:14)
--- NOTE | 2019-09-05 09:21 | P.PN ---
Subjective Progress Note Date: 09/05/19 Principal diagnosis: Small bowel obstruction Patient was seen and examined. No acute events overnight. Patient reports discomfort with the NG tube. He complains of abdominal discomfort but does not want to take any pain medication. States that morphine makes him hallucinate. Plans for surgery around 2 PM. He denies any nausea or vomiting. No chest pain, shortness of breath or palpitations. No fever or chills. Objective - Vital Signs Vital signs: Vital Signs Temp 98.0 F 09/05/19 04:25 Pulse 82 09/05/19 04:25 Resp 16 09/05/19 04:25 BP 141/65 09/05/19 04:25 Pulse Ox 97 09/05/19 04:25 Intake & Output 09/04/19 09/05/19 09/05/19 18:59 06:59 18:59 Intake Total 100 Balance 100 Weight 64.093 kg Intake: Intake, IV Titration 100 Amount Sodium Chloride 0.9% 1, 100 000 ml @ 100 mls/hr IV . Q10H [facility] Rx#:[id number] Other: # Voids 3 - Exam General: [non toxic], [no distress], [appears at stated age] Derm: [warm], [dry] Head: [atraumatic], [normocephalic], [symmetric], [NG tube intact], [bitemporal wasting] Eyes: [EOMI], [no lid lag], [anicteric sclera] Mouth: [no lip lesion], [mucus membranes moist] Cardiovascular: [S1S2 reg], [systolic murmur], [positive DP pulse bilateral], Lungs: [CTA bilateral], [no rhonchi, no rales] , [no accessory muscle use] Abdominal: [soft], [ nontender to palpation], [distended], [no appreciable organomegaly] Ext: [no gross muscle atrophy], [no edema], [no contractures] Neuro: [no focal neuro deficits] Psych: [Alert], [oriented], [appropriate affect] - Labs CBC & Chem 7: 09/04/19 10:01 09/04/19 10:01 Labs: Abnormal Lab Results - Last 24 Hours (Table) 09/04/19 09/04/19 Range/Units 10: 10: RBC 3.42 L (4.30-5.90) m/uL Hgb 10.7 L (13.0-17.5) gm/dL Hct 31.8 L (39.0-53.0) % Lymphocytes # 0.6 L (1.0-4.8) k/uL Albumin 3.4 L (3.5-5.0) g/dL Assessment and Plan Assessment: Small bowel obstruction secondary to rectal adenocarcinoma with metastatic di sease to the liver and lymph nodes Anemia Paroxysmal atrial fibrillation Glaucoma As seen on KUB. PET scan from August shows metastatic disease to the liver and lymph nodes. Pathology proven adenocarcinoma of the rectum. Plans: General surgery on board for planned colostomy tomorrow. NG tube with suction. Tylenol or morphine as needed for pain. Continue Flagyl. Continue Protonix IV. Con tinue normal saline and 100 cc/h. Follow oncology consultation. Hemoglobin 10.7. Likely anemia of chronic disease. Plans: Repeat CBC tomorrow morning. EKG shows normal sinus rhythm. Plans: Continue to monitor. Not on anticoagulation. Plans: Continue home medication eyedrops. [Patient with history of rectal adenocarcinoma. Metastatic disease to the liver and lymph nodes. Oncology consulted. Plans for colostomy under surgery today. He is pending clinical improvement. Likely DC in 3-4 days.]
[2019-09-05] MEDS: BRIMONIDINE TARTRATE 0.2% DROPS 5 ML BTL BOTH EYES SCH ×2 (10:24→21:09)
[2019-09-05] MEDS ORDERED: IV FLUID CONTINUATION 950 ML IV ONE (13:27)
[2019-09-05] MEDS ORDERED: ONDANSETRON 4 MG/2 ML VIAL IVP ONE (14:00)
[2019-09-05] MEDS ORDERED: DEXAMETHASONE SOD PHOSPHATE 10 MG/ML 1 ML VIAL IV ONE (14:01)
[2019-09-05] MEDS ORDERED: NEOSTIGMINE 1 MG/ML 10 ML VIAL ONE (14:04)
[2019-09-05] MEDS ORDERED: SUCCINYLCHOLINE CHLORIDE 100 MG/5 ML SYR IV ONE (14:04)
[2019-09-05] MEDS ORDERED: HEPARIN SODIUM,PORCINE 5,000 UNIT/ML 1 ML VIAL ONE (14:04)
[2019-09-05] MEDS ORDERED: fentaNYL (PF) 50 MCG/ML 2 ML AMP ONE (14:04)
[2019-09-05] MEDS ORDERED: LIDOCAINE 1% INJ 10MG/ML (20 ML MDV) ONE (14:04)
[2019-09-05] MEDS ORDERED: PROPOFOL 10 MG/ML 20 ML VIAL IV ONE (14:04)
[2019-09-05] MEDS ORDERED: ceFAZolin 1,000 MG VIAL ONE (14:04)
[2019-09-05] MEDS ORDERED: ROCURONIUM BROMIDE 10 MG/ML 10 ML VIAL IV ONE (14:04)
[2019-09-05] MEDS ORDERED: MIDAZOLAM 2 MG/2 ML VIAL ONE (14:04)
[2019-09-05] MEDS ORDERED: GLYCOPYRROLATE 0.2 MG/ML 2 ML VIAL ONE (14:04)
--- NOTE | 2019-09-05 14:04 | P.GSHP ---
History of Present Illness H&P Date: 09/05/19 This is an 79-year-old male that is well known to me that presented to the emergency department with complaints of abdominal pain and concern for bowel obstruction. He is well known to me secondary to history of low anterior resection for sigmoid colon cancer performed in December 2017. He was noted to have multiple positivity and lymph nodes and after consultation with oncology did not opt for any chemotherapy at that time. He did try naturopathic and homeopathic remedies. He was found to have a recurrence of the cancer approximately 1 year later. At that time, he did opt for radiation therapy but did opt out of any chemotherapy. He did have 22 radiation treatments. At that time, the patient was made in the office and due to the possibility of large bowel obstruction due to the nearly obstructing mass, I did recommend a colostomy. The patient stated that he did not want a colostomy at that time. He recently presented to my office on 09/01/2019 due to recent PET scan finding of progression of metastatic disease in the liver. He states that at that time, he was noticing decreased amount of bowel function and decreased amounts of flatus. At that time, plan was made for a colostomy creation and the patient was agreeable. He was scheduled for 09/05/2019 but did present to the emergency department on 09/04/2019, stating he was having increased abdominal pain. He was admitted at that time with plan for colostomy creation. 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 History of Any Multi-Drug Resistant Organisms: None Reported Past Surgical History: Bowel Resection, Orthopedic Surgery Additional Past Surgical History / Comment(s): Bowel resection December 2017, flexible sigmoidoscopies, EGD, lump removed from inside rt leg, ORIF rt wrist with plate/screw, bilateral cataracts removed, laser surgery bilateral eyes, L eye protein removal, steroid injections left eye, retina wrinkle surgery left eye.,. Bowel Resection December 2017 Past Anesthesia/Blood Transfusion Reactions: No Reported Reaction Smoking Status: Former smoker - Past Family History Mother Family Medical History: Respiratory Disorder Additional Family Medical History / Comment(s): Mother had TB Father Family Medical History: No Reported History Additional Family Medical History / Comment(s): Father was healthy Medications and Allergies Home Medications Medication Instructions Recorded Confirmed Type Latanoprost Ophth [Xalatan 0.005%] 1 drops BOTH EYES HS 11/14/17 09/04/19 History Iron 25mg 25 mg PO DAILY 12/11/17 09/04/19 History Colostrum (Unknown Med) 1 dose PO BID 10/02/18 09/04/19 History Immunokinoko ( Unknown Med) 2 tab PO TID 10/02/18 09/04/19 History Protacell 50 ( Unknown Med) 1 tab PO DAILY 10/02/18 09/04/19 History Cholecalciferol (Vitamin D3) 2,000 unit PO DAILY 12/18/18 09/04/19 History [Vitamin D3] Magnesium Gluconate [Magonate] 500 mg PO DAILY 12/18/18 09/04/19 History Potassium 84 meq PO DAILY 12/18/18 09/04/19 History Vitamin B Complex 1 cap PO DAILY 12/18/18 09/04/19 History Brimonidine Tartrate [Alphagan P 1 drops BOTH EYES BID 09/04/19 09/04/19 History 0.2% Ophth Soln] Allergies Allergy/AdvReac Type Severity Reaction Status Date / Time Penicillins Allergy Rash/Hives Verified 09/04/19 10:04 Surgical - Exam Osteopathic Statement: *. No significant issues noted on an osteopathic structural exam other than those noted in the History and Physical/Consult. Vital Signs Temp Pulse Resp BP Pulse Ox 97.4 F L 82 19 114/62 95 09/04/19 09:00 09/04/19 09:00 09/04/19 09:00 09/04/19 09:00 09/04/19 09:00 - General well nourished, no distress - ENT normal mucosa, no hearing loss - Neck trachea midline - Respiratory normal respiratory effort - Abdomen Soft, mild tenderness to palpation in the lower quadrants him a nondistended, no rebound, no guarding - Musculoskeletal normal gait - Psychiatric oriented to time, oriented to person, oriented to place Results - Labs 09/04/19 10:01 09/04/19 10:01 Assessment and Plan (1) Cancer of sigmoid colon Narrative/Plan: I had a very long discussion with the patient and the patient's family, incl uding his two children. The patient and the family are aware that the patient does have metastatic recurrent colon cancer. He has opted for partial therapy in the past with no chemotherapy although this was recommended by oncology and he did opt for radiation. At this point, he appears to have a obstructive process secondary to the recurrent mass at the previous anastomosis. Due to this obstruction, plan is for ostomy creation. The patient is aware that the resulting colon mass may not be removed during this procedure, as he already has hepatic metastasis. Currently, the goal of therapy is to relieve the obstructive process. He is aware that at this point, surgery is not a curative process, rather a palliative process due to his metastatic colon cancer along with opting out of chemotherapy. Risks, benefits and alternatives were provided to the patient and the patient's family. The patient did provide consent. Current Visit: No Status: Acute Code(s): C18.7 - MALIGNANT NEOPLASM OF SIGMOID COLON SNOMED Code(s): 778969464
[2019-09-05] MEDS ORDERED: metroNIDAZOLE-NS PMX 500 MG in SALINE 1 100ML.BAG IVPB STA (14:16)
[2019-09-05] MEDS ORDERED: LACTATED RINGERS 1,000 ML IV ONE (15:30)
[2019-09-05] MEDS ORDERED: METOCLOPRAMIDE 5 MG/ML 2 ML VIAL IVP PRN (16:14)
[2019-09-05] MEDS ORDERED: HYDROmorphone 0.5 MG/0.5 ML SYRINGE IVP ONE ×2 (16:17→16:22)
--- NOTE | 2019-09-05 16:30 | P.OP ---
Date of Procedure: 09/05/19 Preoperative Diagnosis: Recurrent, metastatic colon cancer Large bowel obstruction Postoperative Diagnosis: Recurrent, metastatic colon cancer Large bowel obstruction Procedure(s) Performed: End colostomy creation Anesthesia: CRISPINA Surgeon: Duong Delarosa Pathology: other (Redundant colon, peritoneal fluid sent for cytology) Condition: stable Disposition: floor Indications for Procedure: This is an 79-year-old male that presented to the emergency department with complaints of abdominal pain and distended colon. He is known to me from previous surgical history of low interior resection secondary to colon cancer. He was found at that time to have multiple positive lymph nodes and chemotherapy was recommended. The patient opted to not have chemotherapy as part of his treatment and did start homeopathic and naturopathic remedies. He was found to have a recurrence of the colon cancer on repeat colonoscopy. At that time, he did have an evaluation by oncology, radiation oncology and surgery and opted only for radiation. He states that over the past 6 months it has become more difficult to have a bowel movement and he is only having a small amount of flatus and a small amount of bowel movement. On workup, it appears that he does have a large bowel obstruction likely secondary to the obstructing mass in the colon. He is also noted to have hepatic metastasis, for which he has refused chemotherapy. Due to these findings, plan is for creation of end colostomy to relieve the large bowel obstruction. The patient was explained the palliative nature of this case and does understand that this procedure is not a curative procedure. He was explained the risks, benefits and alternatives to the procedure and did provide consent prior to attending the operating suite. Operative Findings: Significant amount of colonic and small bowel is tension Significant scarring of the pelvis, likely secondary to radiation therapy Description of Procedure: The patient was brought into the operating suite and placed in supine position on the operating table. Sedation was provided by anesthesia and endotracheal intubation was performed. A Roldan catheter was placed under sterile conditions. The patient was then prepped and draped in regular sterile fashion. A vertical midline incision was made from just superior to the umbilicus towards the pubis. Dissection was carried towards the fascia. The fascia was incised along the length of the incision. The peritoneum was then entered and incised along the length of the incision. It was immediately apparent that the patient had a significant amount of dilated bowel, both colon and small bowel. Yellow free fluid was noted in the abdomen. Cytology was sent of collected free fluid specimen. Bookwalter retractor was placed and the small bowel was retracted to the right upper quadrant. On examination of the pelvis, a significant amount of scarring was noted. Anatomy was undiscernible due to the significant amount of scarring. Palpable mass was noted in the pelvis. Due to the high risk of injury and palliative nature of this case, it was decided to transect just proximal to the significant scarring and apparent mass. This transection was performed with a 60 mm purple load Endo OLGA stapler. Due to the significant distention of the colon, the colon was noted to be redundant. A short segment of the colon was resected in anticipation of creating an end colostomy. A p roximal point for transection was noted and was resected using a 60 mm purple load Endo OLGA stapler. The resulting mesenteric attachment was dissected with LigaSure. Irrigation was then placed in the abdomen and suctioned. An appropriate amount of colon was noted to create the ostomy. A circular incision was made on the left abdominal wall dissection was carried to the fascia; the fascia was incised in a cruciate manner. The muscle was then split and the peritoneum was entered. The distal end of the remaining colon was brought through the anticipated ostomy site and was noted to not have any significant tension. At this point the Bookwalter retractor was removed. The midline incision was closed with a running looped PDS suture. Skin virginie were placed. The ostomy was then matured in standard Gabrielle fashion. Sterile dressing was applied. The patient was awakened in the operating suite and taken to postanesthesia care unit in stable condition.
[2019-09-05] MEDS ORDERED: ONDANSETRON 4 MG/2 ML VIAL IVP PRN (16:41)
--- NOTE | 2019-09-05 17:31 | P.CONS ---
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 Rizo in the past for adenocarcinoma of the rectum. Presented with decreased endurance, found to be anemic, diagnosed iron deficiency. EGD and colonoscopy with Dr. Avitia in November 2017 showed a large sigmoid colon mass, ulcerated, biopsies positive for adenocarcinoma. Had resection December 2017. Final path showed a well-differentiated adenocarcinoma invading through the visceral peritoneum, 11 of 18 lymph nodes involved, T4, N2 disease, high risk of recurrence. CT scan for staging showed no evidence of metastatic disease. Recommended adjuvant c hemo, but he decided against it, opting for naturopathic treatment. PET in 06/20 was negative. He developed progressive difficulty in passing BMs, with occasional blood in the stool in early 2018. Colonoscopy on 12/20/18 revealing a near obstructing mass, 13-20 cm from the anal verge. Biopsy was positive for adenocarcinoma, felt most likely local recurrence, PET showed uptake only in the known mass with no evidence of distant metastasis. CEA was elevated at 22.7. Iron levels were low. He was set up for an EUS, but did not keep that appointment due to transportation issues. Ultimately had procedure on 02/14/19, revealing a T3 N1 lesion. He had XRT x 10 in March 2019 for symptom mgmt. He refused chemotherpay. He was advised to proceed for surgical evaluation post radiation. PET scan after completion of radiation on 05/03/19 unfortunately showed evidence of metastatic disease with areas of uptake in the liver, hypermetabolic adenopathy in the periaortic and retroperitoneal nodes, as well as in the rectum extending into the sigmoid colon, as well as in the lower thoracic spine, surgery was not an option. He was referred back to Med Onc, did not want chemo. Patient presents with complete obstruction and inability to defecate requiring surgical intervention. He is going to be going to surgery today with Dr. Delarosa. 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 History of Any Multi-Drug Resistant Organisms: None Reported Past Surgical History: Bowel Resection, Orthopedic Surgery Additional Past Surgical History / Comment(s): Bowel resection December 2017, flexible sigmoidoscopies, EGD, lump removed from inside rt leg, ORIF rt wrist with plate/screw, bilateral cataracts removed, laser surgery bilateral eyes, L eye protein removal, steroid injections left eye, retina wrinkle surgery left eye.,. Bowel Resection December 2017 Past Anesthesia/Blood Transfusion Reactions: No Reported Reaction Smoking Status: Former smoker - Past Family History Mother Family Medical History: Respiratory Disorder Additional Family Medical History / Comment(s): Mother had TB Father Family Medical History: No Reported History Additional Family Medical History / Comment(s): Father was healthy Medications and Allergies Home Medications Medication Instructions Recorded Confirmed Type Latanoprost Ophth [Xalatan 0.005%] 1 drops BOTH EYES HS 11/14/17 09/04/19 History Iron 25mg 25 mg PO DAILY 12/11/17 09/04/19 History Colostrum (Unknown Med) 1 dose PO BID 10/02/18 09/04/19 History Immunokinoko ( Unknown Med) 2 tab PO TID 10/02/18 09/04/19 History Protacell 50 ( Unknown Med) 1 tab PO DAILY 10/02/18 09/04/19 History Cholecalciferol (Vitamin D3) 2,000 unit PO DAILY 12/18/18 09/04/19 History [Vitamin D3] Magnesium Gluconate [Magonate] 500 mg PO DAILY 12/18/18 09/04/19 History Potassium 84 meq PO DAILY 12/18/18 09/04/19 History Vitamin B Complex 1 cap PO DAILY 12/18/18 09/04/19 History Brimonidine Tartrate [Alphagan P 1 drops BOTH EYES BID 09/04/19 09/04/19 History 0.2% Ophth Soln] Allergies Allergy/AdvReac Type Severity Reaction Status Date / Time Penicillins Allergy Rash/Hives Verified 09/04/19 10:04 Physical Exam Vitals: Vital Signs Temp Pulse Resp BP Pulse Ox 09/05/19 16:45 77 14 135/57 97 09/05/19 16:30 68 16 147/74 97 09/05/19 16:15 68 16 152/70 99 09/05/19 16:00 74 16 148/67 96 09/05/19 15:59 98.0 F 72 16 153/67 97 09/05/19 13:29 98.4 F 76 16 161/74 96 09/05/19 11:18 98.0 F 74 16 145/65 98 09/05/19 04:25 98.0 F 82 16 141/65 97 09/04/19 20:36 97.6 F 76 16 135/57 98 Intake and Output 09/05/19 09/05/19 09/05/19 06:59 14:59 22:59 Intake Total 1100 50 Output Total 50 Balance 1100 0 Intake: IV 1100 50 Output: Urine 25 Estimated Blood Loss 25 Other: # Voids 3 1 Weight 64.093 kg - Constitutional General appearance: cooperative, no acute distress, thin - EENT Eyes: anicteric sclerae, EOMI ENT: hearing grossly normal - Respiratory Respirations even and unlabored, chest expansion is symmetrical, no acute distress - Cardiovascular skin is warm, dry to the touch, radial pulse palpable 2+ - Gastrointestinal General gastrointestinal: distended (mild), soft, tenderness - Neurologic Neurologic: CNII-XII intact - Musculoskeletal Musculoskeletal: generalized weakness, strength equal bilaterally - Psychiatric Psychiatric: A&O x's 3, appropriate affect, intact judgment & insight Results CBC & Chem 7: 09/04/19 10:01 09/04/19 10:01 Abdominal x-ray: report reviewed Assessment and Plan (1) Cancer of sigmoid colon Narrative/Plan: Reviewed with the patient his recent PET scan that was ordered by Dr. Hines post radiation. I reviewed the report with Dr. Hines. Discussed disease progression in the liver, known areas of disease persist and that clinically he has progression as he is requiring surgery for obstruction. All of the patient's questions were answered to the best of my ability. Patient has decided against chemotherapy as a treatment option. Encouraged patient if he had questions or concerns to please ask to discuss with Medical Oncology. He declined consult with Radiation Oncology. He will proceed with surgery and hopefully he will feel better. Nothing further from a Medical Oncology standpoint at this time. Current Visit: Yes Status: Chronic Code(s): C18.7 - MALIGNANT NEOPLASM OF SIGMOID COLON SNOMED Code(s): 315892387 (2) Anemia Narrative/Plan: Mild, not requiring transfusion. Likely this is a combination of blood loss and possibly some nutritional/absorption issues. Iron studies for evaluation Current Visit: Yes Status: Chronic Priority: Medium Code(s): D64.9 - ANEM IA, UNSPECIFIED SNOMED Code(s): 379211639
[2019-09-05] MEDS: KETOROLAC 30 MG/ML 1 ML VIAL IVP SCH ×2 (17:56→23:42)
[2019-09-05] MEDS: LATANOPROST 0.005% OPHTH DROPS 2.5 ML BTL BOTH EYES SCH (21:10)
[2019-09-05] MEDS: HEPARIN SODIUM,PORCINE 5,000 UNIT/ML 1 ML VIAL SQ SCH (23:41)
[2019-09-06] MEDS: SODIUM CHLORIDE 0.9% 1,000 ML IV SCH ×3 (05:37→20:38)
[2019-09-06] MEDS: KETOROLAC 30 MG/ML 1 ML VIAL IVP SCH ×4 (05:37→23:13)
[2019-09-06 07:48] LABS: Basophils % (A) 0 %; Eosinophils % (A) 0 %; HCT 28.8 % (39.0-53.0); HGB 9.6 gm/dL (13.0-17.5); Lymphocytes # (A) 0.4 k/uL (1.0-4.8); Lymphocytes % (A) 4 %; MCH 32.1 pg (25.0-35.0); MCHC 33.5 g/dL (31.0-37.0); MCV 95.7 fL (80.0-100.0); Monocytes # (A) 0.4 k/uL (0-1.0); Monocytes % (A) 4 %; Neutrophils # (A) 9.7 k/uL (1.3-7.7); Neutrophils % (A) 91 %; Platelet Count 335 k/uL (150-450); RBC 3.01 m/uL (4.30-5.90); RDW 12.4 % (11.5-15.5); WBC 10.6 k/uL (3.8-10.6)
[2019-09-06 08:12] LABS: African American GFR (CKD) >90 (>60 ml/min/1.73 sqM); Anion Gap 4 mmol/L; Blood Urea Nitrogen 20 mg/dL (9-20); Calcium 8.8 mg/dL (8.4-10.2); Carbon Dioxide 26 mmol/L (22-30); Chloride 112 mmol/L (98-107); Glucose 131 mg/dL (74-99); Non-African American GFR(CKD) 82 (>60 ml/min/1.73 sqM); Potassium 4.3 mmol/L (3.5-5.1); Sodium 142 mmol/L (137-145)
--- NOTE | 2019-09-06 09:08 | P.PN ---
Subjective Progress Note Date: 09/06/19 Patient seen and examined at bedside. He has had multiple bowel movements through his ostomy. The night nurse did record 700 cc of stool. Currently, the bag is full on exam. He states his pain is well controlled. He is making appropriate urine output. He states his pain is well controlled. Nasogastric tube is in place with minimal output. Objective - Vital Signs Vital signs: Vital Signs Temp 97.6 F 09/06/19 04:47 Pulse 69 09/06/19 04:47 Resp 16 09/06/19 04:47 BP 124/61 09/06/19 04:47 Pulse Ox 100 09/06/19 04:47 Intake & Output 09/05/19 09/06/19 09/06/19 18:59 06:59 18:59 Intake Total 1150 1200 Output Total 50 1200 Balance 1100 0 Weight 64.093 kg Intake: IV 1150 Intake, IV Titration 1200 Amount Sodium Chloride 0.9% 1, 1200 000 ml @ 100 mls/hr IV . Q10H [facility] Rx#:[id number] Oral 0 Output: Gastric Drainage 200 Urine 25 600 Stool 400 Estimated Blood Loss 25 Other: Voiding Method Indwelling Catheter # Voids 1 # Bowel Movements 0 - Constitutional General appearance: Present: cooperative, no acute distress - Gastrointestinal Gastrointestinal Comment(s): Soft, appropriate tenderness, non distended, no rebound, no guarding, ostomy is pink and patent - Psychiatric Psychiatric: Present: A&O x's 3 - Labs CBC & Chem 7: 09/06/19 07:21 09/06/19 07:21 Labs: Abnormal Lab Results - Last 24 Hours (Table) 09/06/19 09/06/19 Range/Units 07:21 07:21 RBC 3.01 L (4.30-5.90) m/uL Hgb 9.6 L (13.0-17.5) gm/dL Hct 28.8 L (39.0-53.0) % Neutrophils # 9.7 H (1.3-7.7) k/uL Lymphocytes # 0.4 L (1.0-4.8) k/uL Chloride 112 H (98-107) mmol/L Glucose 131 H (74-99) mg/dL Assessment and Plan (1) Cancer of sigmoid colon Narrative/Plan: Postoperative day #1 from colostomy creation secondary to large bowel obstruction. The patient is having significant amount of ostomy output and bowel obstruction appears to be resolving secondary to colostomy creation. We will advance the diet to a clear liquid diet and remove the nasogastric tube. Roldan catheter to be removed. Increase activity today with walking and out of bed. Current Visit: Yes Status: Chronic Code(s): C18.7 - MALIGNANT NEOPLASM OF SIGMOID COLON SNOMED Code(s): 221748846
[2019-09-06] MEDS: PANTOPRAZOLE 40 MG/10 ML VIAL IV SCH (09:33)
[2019-09-06] MEDS: HEPARIN SODIUM,PORCINE 5,000 UNIT/ML 1 ML VIAL SQ SCH (09:33)
[2019-09-06] MEDS: BRIMONIDINE TARTRATE 0.2% DROPS 5 ML BTL BOTH EYES SCH ×2 (09:33→20:37)
--- NOTE | 2019-09-06 12:10 | P.PN ---
Subjective Progress Note Date: 09/06/19 Principal diagnosis: Small bowel obstruction Patient was seen and examined. No acute events overnight. Underwent colostomy yesterday. Patient reports good stool output into colostomy bag. He denies any nausea or vomiting. He denies any chest pain, shortness of breath or pal pitations. Plan is to remove Roldan catheter and NG tube today. Objective - Vital Signs Vital signs: Vital Signs Temp 97.6 F 09/06/19 04:47 Pulse 69 09/06/19 04:47 Resp 16 09/06/19 04:47 BP 124/61 09/06/19 04:47 Pulse Ox 100 09/06/19 04:47 Intake & Output 09/05/19 09/06/19 09/06/19 18:59 06:59 18:59 Intake Total 1150 1200 Output Total 50 1200 200 Balance 1100 0 -200 Weight 64.093 kg Intake: IV 1150 Intake, IV Titration 1200 Amount Sodium Chloride 0.9% 1, 1200 000 ml @ 100 mls/hr IV . Q10H [facility] Rx#:[id number] Oral 0 Output: Gastric Drainage 200 Urine 25 600 Stool 400 200 Estimated Blood Loss 25 Other: Voiding Method Indwelling Catheter # Voids 1 # Bowel Movements 0 - Exam General: [non toxic], [no distress], [appears at stated age] Derm: [warm], [dry] Head: [atraumatic], [normocephalic], [symmetric], [NG tube intact], [bitemporal wasting] Eyes: [EOMI], [no lid lag], [anicteric sclera] Mouth: [no lip lesion], [mucus membranes moist] Cardiovascular: [S1S2 reg], [systolic murmur], [positive DP pulse bilateral], Lungs: [CTA bilateral], [no rhonchi, no rales] , [no accessory muscle use] Abdominal: [soft], [ nontender to palpation], [distended], [no appreciable organomegaly], [colostomy bag full of stool, abdominal midline surgical scar healing well] Ext: [no gross muscle atrophy], [no edema], [no contractures] Neuro: [no focal neuro deficits] Psych: [Alert], [oriented], [appropriate affect] - Labs CBC & Chem 7: 09/06/19 07:21 09/06/19 07:21 Labs: Abnormal Lab Results - Last 24 Hours (Table) 09/06/19 09/06/19 Range/Units 07:21 07:21 RBC 3.01 L (4.30-5.90) m/uL Hgb 9.6 L (13.0-17.5) gm/dL Hct 28.8 L (39.0-53.0) % Neutrophils # 9.7 H (1.3-7.7) k/uL Lymphocytes # 0.4 L (1.0-4.8) k/uL Chloride 112 H (98-107) mmol/L Glucose 131 H (74-99) mg/dL Assessment and Plan Assessment: Small bowel obstruction secondary to rectal adenocarcinoma with metastatic disease to the liver and lymph nodes Anemia Paroxysmal atrial fibrillation Glaucoma POD 1 colostomy. As seen on KUB. PET scan from August shows metastatic disease to the liver and lymph nodes. Pathology proven adenocarcinoma of the rectum. Plans: Plans to remove NG tube and Roldan catheter. Tylenol or morphine as needed for pain. Discontinue Flagyl and cefazolin. Continue Protonix IV. Continue normal saline and 100 cc/h. Follow oncology consultation. Hemoglobin 10.7-9.6. Likely anemia of chronic disease. Also acute blood loss from surgery. Plans: Repeat CBC tomorrow morning. EKG shows normal sinus rhythm. Plans: Continue to monitor. Not on anticoagulation. Plans: Continue home medication eyedrops. [Patient with history of rectal adenocarcinoma. Metastatic disease to the liver and lymph nodes. Oncology consult. POD 1 colostomy creation. Clear liquid d iet and advance. He is pending clinical improvement. Likely DC in 2-3 days.]
[2019-09-06 17:19] LABS: % Iron Saturation 3.96 (15.00-50.00); Iron 8 ug/dL (65-175); Total Iron Binding Capacity 202 ug/dL (228-460)
[2019-09-06 17:25] LABS: Ferritin 104.1 ng/mL (22.0-322.0)
[2019-09-06] MEDS: ENOXAPARIN 40 MG/0.4 ML SYRINGE SQ SCH (18:31)
[2019-09-06] MEDS: LATANOPROST 0.005% OPHTH DROPS 2.5 ML BTL BOTH EYES SCH (20:37)
[2019-09-07] MEDS: KETOROLAC 30 MG/ML 1 ML VIAL IVP SCH ×3 (05:37→18:17)
[2019-09-07] MEDS: PANTOPRAZOLE 40 MG/10 ML VIAL IV SCH (07:46)
[2019-09-07] MEDS: BRIMONIDINE TARTRATE 0.2% DROPS 5 ML BTL BOTH EYES SCH ×2 (07:55→20:03)
[2019-09-07 08:38] LABS: Basophils % (A) 0 %; Eosinophils % (A) 0 %; HCT 32.5 % (39.0-53.0); HGB 10.5 gm/dL (13.0-17.5); Lymphocytes # (A) 0.8 k/uL (1.0-4.8); Lymphocytes % (A) 7 %; MCH 30.9 pg (25.0-35.0); MCHC 32.4 g/dL (31.0-37.0); MCV 95.5 fL (80.0-100.0); Mean Platelet Volume 7.2; Monocytes # (A) 0.4 k/uL (0-1.0); Monocytes % (A) 3 %; Neutrophils # (A) 10.3 k/uL (1.3-7.7); Neutrophils % (A) 90 %; Platelet Count 313 k/uL (150-450); RBC 3.41 m/uL (4.30-5.90); RDW 12.7 % (11.5-15.5); WBC 11.5 k/uL (3.8-10.6)
[2019-09-07] MEDS ORDERED: ENOXAPARIN 40 MG/0.4 ML SYRINGE SQ SCH (09:00)
[2019-09-07 09:05] LABS: African American GFR (CKD) >90 (>60 ml/min/1.73 sqM); Anion Gap 5 mmol/L; Blood Urea Nitrogen 17 mg/dL (9-20); Calcium 8.8 mg/dL (8.4-10.2); Carbon Dioxide 26 mmol/L (22-30); Chloride 108 mmol/L (98-107); Glucose 102 mg/dL (74-99); Non-African American GFR(CKD) 85 (>60 ml/min/1.73 sqM); Potassium 4.4 mmol/L (3.5-5.1); Sodium 139 mmol/L (137-145)
--- NOTE | 2019-09-07 10:53 | P.PN ---
Subjective Progress Note Date: 09/07/19 Patient seen and examined at bedside. States that he has been ambulating in the hallway. Colostomy continues to have output. States he does feel soreness in the abdomen. Objective - Vital Signs Vital signs: Vital Signs Temp 97.3 F L 09/07/19 05:00 Pulse 58 L 09/07/19 05:00 Resp 16 09/07/19 05:00 BP 120/56 09/07/19 05:00 Pulse Ox 94 L 09/07/19 05:00 Intake & Output 09/06/19 09/07/19 09/07/19 18:59 06:59 18:59 Intake Total 720 360 Output Total 1140 640 440 Balance -420 -280 -440 Intake: Oral 720 360 Output: Urine 340 240 240 Stool 800 400 200 Other: Voiding Method Indwelling Catheter Toilet # Voids 1 1 - Constitutional General appearance: Present: cooperative - Respiratory Details: No difficulty with respiration - Gastrointestinal Gastrointestinal Comment(s): Soft, appropriate tenderness, nondistended, no rebound, no guarding, ostomy is pink and patent, incision site is clean, dry and intact with virginie in place - Psychiatric Psychiatric: Present: A&O x's 3 - Labs CBC & Chem 7: 09/07/19 08:10 09/07/19 08:10 Labs: Abnormal Lab Results - Last 24 Hours (Table) 09/06/19 09/07/19 09/07/19 Range/Units 07:21 08:10 08:10 WBC 11.5 H (3.8-10.6) k/uL RBC 3.41 L (4.30-5.90) m/uL Hgb 10.5 L (13.0-17.5) gm/dL Hct 32.5 L (39.0-53.0) % Neutrophils # 10.3 H (1.3-7.7) k/uL Lymphocytes # 0.8 L (1.0-4.8) k/uL Chloride 108 H (98-107) mmol/L Glucose 102 H (74-99) mg/dL Iron 8 L (65-175) ug/dL TIBC 202 L (228-460) ug/dL % Saturation 3.96 L (15.00-50.00) Assessment and Plan (1) Cancer of sigmoid colon Narrative/Plan: Postoperative day #2 from colostomy creation secondary to large bowel obstruction. - Will advance to soft diet - Continue to increase activity - Consult has been placed for ostomy nurse to provide instructions on ostomy care. We will also arrange for visiting nurse for assistance with new ostomy. - The patient did have multiple questions on ostomy care along with his prognosis. All questions were answered at bedside. - Progressing slowly. Prognosis is very guarded due to stage IV metastatic colon cancer. Current Visit: Yes Status: Chronic Code(s): C18.7 - MALIGNANT NEOPLASM OF SIGMOID COLON SNOMED Code(s): 902197882
[2019-09-07] MEDS: SODIUM CHLORIDE 0.9% 1,000 ML IV SCH ×2 (11:49→21:47)
--- NOTE | 2019-09-07 15:45 | P.PN ---
Subjective Progress Note Date: 09/07/19 Principal diagnosis: Small bowel obstruction Patient was seen and examined. No acute events overnight. Underwent colostomy 09/05/2019. Patient reports good stool output into colostomy bag. He denies any nausea or vomiting. He denies any chest pain, shortness of breath or pa lpitations. Objective - Vital Signs Vital signs: Vital Signs Temp 98.8 F 09/07/19 14:29 Pulse 68 09/07/19 12:40 Resp 16 09/07/19 12:40 BP 138/60 09/07/19 12:40 Pulse Ox 93 L 09/07/19 12:40 Intake & Output 09/06/19 09/07/19 09/07/19 18:59 06:59 18:59 Intake Total 720 360 Output Total 1140 640 740 Balance -420 280 -740 Intake: Oral 720 360 Output: Urine 340 240 240 Stool 800 400 400 Urine/Stool Mix 100 Other: Voiding Method Indwelling Catheter Toilet Toilet # Voids 1 1 - Exam General: [non toxic], [no distress], [appears at stated age] Derm: [warm], [dry] Head: [atraumatic], [normocephalic], [symmetric], [NG tube intact], [bitemporal wasting] Eyes: [EOMI], [no lid lag], [anicteric sclera] Mouth: [no lip lesion], [mucus membranes moist] Cardiovascular: [S1S2 reg], [systolic murmur], [positive DP pulse bilateral], Lungs: [CTA bilateral], [no rhonchi, no rales] , [no accessory muscle use] Abdominal: [soft], [ nontender to palpation], [distended], [no appreciable organomegaly], [colostomy bag full of stool, abdominal midline surgical scar healing well] Ext: [no gross muscle atrophy], [no edema], [no contractures] Neuro: [no focal neuro deficits] Psych: [Alert], [oriented], [appropriate affect] - Labs CBC & Chem 7: 09/07/19 08:10 09/07/19 08:10 Labs: Abnormal Lab Results - Last 24 Hours (Table) 09/06/19 09/07/19 09/07/19 Range/Units 07:21 08:10 08:10 WBC 11.5 H (3.8-10.6) k/uL RBC 3.41 L (4.30-5.90) m/uL Hgb 10.5 L (13.0-17.5) gm/dL Hct 32.5 L (39.0-53.0) % Neutrophils # 10.3 H (1.3-7.7) k/uL Lymphocytes # 0.8 L (1.0-4.8) k/uL Chloride 108 H (98-107) mmol/L Glucose 102 H (74-99) mg/dL Iron 8 L (65-175) ug/dL TIBC 202 L (228-460) ug/dL % Saturation 3.96 L (15.00-50.00) Assessment and Plan Assessment: Small bowel obstruction secondary to rectal adenocarcinoma with metastatic disease to the liver and lymph nodes Anemia Leukocytosis Paroxysmal atrial fibrillation Glaucoma POD 2 colostomy. As seen on KUB. PET scan from August shows metastatic disease to the liver and lymph nodes. Pathology proven adenocarcinoma of the rectum. Plans: Tylenol or morphine as needed for pain. Discontinue Flagyl and cefazolin. Continue Protonix IV. Decrease normal saline to 50 mL per hour. Follow oncology consultation. Hemoglobin 10.7-9.6-10.5. Likely anemia of chronic disease. Also acute blood loss from surgery. Plans: Repeat CBC tomorrow morning. Leukocytosis of 11.5. Also low-grade fever 99.8. Possibly reactive from surgery. No signs of infection. Plans: Repeat CBC tomorrow morning. Tylenol as needed for fever. Incentive spirometry. EKG shows normal sinus rhythm. Plans: Continue to monitor. Not on anticoagulation. Plans: Continue home medication eyedrops. [Patient with history of rectal adenocarcinoma. Metastatic disease to the liver and lymph nodes. Patient declining chemotherapy. POD 2 colostomy creation. Low fiber diet and advance. Likely DC in 1-2 days.]
[2019-09-07] MEDS: ENOXAPARIN 40 MG/0.4 ML SYRINGE SQ SCH (18:17)
[2019-09-07] MEDS: LATANOPROST 0.005% OPHTH DROPS 2.5 ML BTL BOTH EYES SCH ×2 (20:03→21:16)
[2019-09-08 09:01] LABS: Basophils % (A) 0 %; Eosinophils % (A) 0 %; HCT 29.9 % (39.0-53.0); HGB 9.6 gm/dL (13.0-17.5); Lymphocytes # (A) 0.6 k/uL (1.0-4.8); Lymphocytes % (A) 5 %; MCH 30.7 pg (25.0-35.0); MCV 95.9 fL (80.0-100.0); Mean Platelet Volume 7.2; Monocytes # (A) 0.4 k/uL (0-1.0); Monocytes % (A) 3 %; Neutrophils # (A) 11.8 k/uL (1.3-7.7); Neutrophils % (A) 91 %; Platelet Count 257 k/uL (150-450); RBC 3.11 m/uL (4.30-5.90); RDW 12.8 % (11.5-15.5); WBC 12.9 k/uL (3.8-10.6)
--- NOTE | 2019-09-08 12:43 | XR ---
EXAMINATION TYPE: XR chest 1V portable DATE OF EXAM: 09/08/2019 COMPARISON: 04/23/2012 HISTORY: Shortness of breath. TECHNIQUE: Single frontal view of the chest is obtained. FINDINGS: Right midlung linear atelectasis is seen. There is no focal air space opacity, pleural eff usion, or pneumothorax seen. Cardiomediastinal silhouette is enlarged, partially due to rotation. The re is diffuse osseous demineralization. The osseous structures are intact. IMPRESSION: Right midlung atelectasis. Relative enlargement of the cardia mediastinal silhouette lik ervin due to rotation.
--- NOTE | 2019-09-08 13:01 | P.PN ---
Subjective Progress Note Date: 09/08/19 The patient was seen and examined at bedside. He denies any significant abdominal pain. He states overall, he is feeling well. He is noted to have had a febrile episode of 100.8 overnight. He has also had a mild elevation of leukocytosis to 12.9. He denies any burning with urination. He denies any nausea or vomiting. Colostomy continues to have output. He denies any lower extremity pain. Objective - Vital Signs Vital signs: Vital Signs Temp 98.6 F 09/08/19 12:06 Pulse 56 L 09/08/19 12:06 Resp 17 09/08/19 12:06 BP 127/48 09/08/19 12:06 Pulse Ox 96 09/08/19 12:06 Intake & Output 09/07/19 09/08/19 09/08/19 18:59 06:59 18:59 Output Total 1380 Balance -1380 Weight 64.093 kg Output: Urine 480 Stool 800 Urine/Stool Mix 100 Other: Voiding Method Toilet Toilet # Voids 1 - Constitutional General appearance: Present: cooperative - Respiratory Details: no difficulty with respiration - Gastrointestinal Gastrointestinal Comment(s): soft, appropriate tenderness, nondistended, no rebound, no guarding, incision site with no significant erythema or drainage - Musculoskeletal Musculoskeletal: Present: generalized weakness - Psychiatric Psychiatric: Present: A&O x's 3 - Labs CBC & Chem 7: 09/08/19 07:43 09/07/19 08:10 Labs: Abnormal Lab Results - Last 24 Hours (Table) 09/08/19 Range/Units 07:43 WBC 12.9 H (3.8-10.6) k/uL RBC 3.11 L (4.30-5.90) m/uL Hgb 9.6 L (13.0-17.5) gm/dL Hct 29.9 L (39.0-53.0) % Neutrophils # 11.8 H (1.3-7.7) k/uL Lymphocytes # 0.6 L (1.0-4.8) k/uL Assessment and Plan (1) Cancer of sigmoid colon Narrative/Plan: Postoperative day #3 from colostomy creation secondary to large bowel obstruction. - Continue soft diet - Continue to increase activity - Consult has been placed for ostomy nurse to provide instructions on ostomy car e. We will also arrange for visiting nurse for assistance with new ostomy. - The patient is noted to have a febrile episode and elevation in leukocytosis. Work-up is being performed to evaluate for any postoperative infection. Chest x-ray did reveal atelectasis of the right lung. Urinalysis is pending along with ultrasound of lower extremities to rule out any thrombosis. - Progressing slowly. Prognosis is very guarded due to stage IV metastatic colon cancer. Current Visit: Yes Status: Chronic Code(s): C18.7 - MALIGNANT NEOPLASM OF SIGMOID COLON SNOMED Code(s): 207491819
--- NOTE | 2019-09-08 13:15 | US ---
EXAMINATION TYPE: US venous doppler duplex LE DATE OF EXAM: 09/08/2019 1:06 PM COMPARISON: NONE CLINICAL HISTORY: dvt. SIDE PERFORMED: Bilateral TECHNIQUE: The lower extremity deep venous system is examined utilizing real time linear array sonog sowmya with graded compression, doppler sonography and color-flow sonography. VESSELS IMAGED: External Iliac Vein (EIV) Common Femoral Vein Deep Femoral Vein Greater Saphenous Vein * Femoral Vein Popliteal Vein Small Saphenous Vein * Proximal Calf Veins (* superficial vessels) Grayscale, color doppler, spectral doppler imaging performed of the deep veins of the lower extremiti es. There is normal flow, compressibility, vascular waveforms. Right Leg: Negative for DVT Left Leg: Negative for DVT IMPRESSION: No sonographic evidence of deep venous arthrosis within either the visualized bilateral lower extremities
[2019-09-08] MEDS: PANTOPRAZOLE 40 MG/10 ML VIAL IV SCH (13:41)
[2019-09-08] MEDS: BRIMONIDINE TARTRATE 0.2% DROPS 5 ML BTL BOTH EYES SCH ×2 (13:41→20:55)
--- NOTE | 2019-09-08 13:47 | P.PN ---
Subjective Progress Note Date: 09/08/19 Principal diagnosis: abdominal pain Patient is an 79-year-old male with a past medical history of rectal adenocarcinoma, atrial fibrillation, glaucoma, and anemia who presented with large bowel obstruction. He ultimately underwent an colostomy creation on 09/[address] Delarosa. He has progressed well since surgery.. He has not wanted chemotherapy in the past but has completed radiation. He again met with medical oncology and was not interested in chemotherapy. Patient did began spiking fevers overnight on 09/07 and has an elevated white blood cell count. Patient seen and examined at bedside. He reports a slight cough, he denies any chest pain, shortness of breath, wheezing, nausea, vomiting. He states he's been tolerating his diet well. He has been up and ambulating. He has been wearing his SCDs but has not wanted his Lovenox injections. Objective - Vital Signs Vital signs: Vital Signs Temp 98.6 F 09/08/19 12:06 Pulse 56 L 09/08/19 12:06 Resp 17 09/08/19 12:06 BP 127/48 09/08/19 12:06 Pulse Ox 96 09/08/19 12:06 Intake & Output 09/07/19 09/08/19 09/08/19 18:59 06:59 18:59 Output Total 1380 Balance -1380 Weight 64.093 kg Output: Urine 480 Stool 800 Urine/Stool Mix 100 Other: Voiding Method Toilet Toilet # Voids 1 - Exam General: Ill-appearing, no distress, appears at stated age Derm: warm, dry Head: atraumatic, normocephalic, symmetric Eyes: EOMI, no lid lag, anicteric sclera Mouth: no lip lesion, mucus membranes moist Cardiovascular: S1S2 reg, no murmur, positive posterior tibial pulse bilateral, Lungs: CTA bilateral, no rhonchi, no rales , no accessory muscle use Abdominal: soft, +tender to palpation diffusely, no guarding, no appreciable organomegaly Ext: no gross muscle atrophy, no edema, no contractures Neuro: CN II-XI grossly intact, no focal neuro deficits Psych: Alert, oriented, appropriate affect - Labs CBC & Chem 7: 09/08/19 07:43 09/07/19 08:10 Labs: Abnormal Lab Results - Last 24 Hours (Table) 09/08/19 Range/Units 07:43 WBC 12.9 H (3.8-10.6) k/uL RBC 3.11 L (4.30-5.90) m/uL Hgb 9.6 L (13.0-17.5) gm/dL Hct 29.9 L (39.0-53.0) % Neutrophils # 11.8 H (1.3-7.7) k/uL Lymphocytes # 0.6 L (1.0-4.8) k/uL Assessment and Plan Assessment: Large bowel obstruction due to colon cancer of the sigmoid - Mangaement per surgery -Hasn't met with medical oncology. Not interested in chemotherapy -Has been talked about palliative care and so likely can't decision. -Ostomy nurse consult it and went through teaching with patient. Post op fever with increasing WBC count -Check chest x-ray, urinalysis, and lower extremity Dopplers as patient has not been taking Lovenox Anemia, chronic -Iron studies show slightly low ferritin -Continue oral iron therapy, likely decreased absorption -Follow CBC Paroxysmal atrial fibrillation -Currently rate controlled and on any medications-follow heart rate -Not on any anticoagulant at baseline. DVT prophylaxis: Lovenox ordered but patient has not been taking this Discussed with: Patient, nursing Anticipated discharge: In a.m. Anticipated discharge place: Home with home health A total of 25 minutes was spent on the care of this complex patient more than 50% of the time was spent in counseling and care coordination.
[2019-09-08 17:05] LABS: Appearance,Urine Clear (Clear); Bacteria,Urine Rare /hpf; Bilirubin,Urine Negative (Negative); Blood,Urine Negative (Negative); Color,Urine Yellow; Glucose,Urine (UA) Negative (Negative); Ketones,Urine Negative (Negative); Leukocyte Esterase,Urine Negative (Negative); Mucus,Urine Moderate /hpf; Nitrite,Urine Negative (Negative); PH, Urine 5.5 (5.0-8.0); Protein,Urine 1+ (Negative); RBC,Urine 9 /hpf (0-5); Specific Gravity,Urine 1.028 (1.001-1.035); Squamous Epithelial Cell,Urine <1 /hpf (0-4); Urobilinogen,Urine <2.0 mg/dL (<2.0); WBC,Urine 3 /hpf (0-5)
[2019-09-08] MEDS: ACETAMINOPHEN TAB 325 MG TAB PO PRN ×2 (17:29)
[2019-09-08] MEDS: ENOXAPARIN 40 MG/0.4 ML SYRINGE SQ SCH (17:33)
[2019-09-08] MEDS: AZITHROMYCIN 500 MG in SODIUM CHLORIDE 0.9% 250 ML IVPB SCH (18:35)
[2019-09-08] MEDS: LATANOPROST 0.005% OPHTH DROPS 2.5 ML BTL BOTH EYES SCH (21:57)
[2019-09-09] MEDS: ACETAMINOPHEN TAB 325 MG TAB PO PRN (03:12)
[2019-09-09] MEDS: SODIUM CHLORIDE 0.9% 1,000 ML IV SCH ×2 (03:13→17:30)
[2019-09-09 07:42] LABS: HCT 26.9 % (39.0-53.0); HGB 8.9 gm/dL (13.0-17.5); MCH 31.7 pg (25.0-35.0); MCHC 33.1 g/dL (31.0-37.0); MCV 95.8 fL (80.0-100.0); Mean Platelet Volume 7.3; Platelet Count 222 k/uL (150-450); RDW 12.6 % (11.5-15.5); WBC 14.2 k/uL (3.8-10.6)
[2019-09-09 08:07] LABS: African American GFR (CKD) >90 (>60 ml/min/1.73 sqM); Anion Gap 4 mmol/L; Blood Urea Nitrogen 13 mg/dL (9-20); Carbon Dioxide 24 mmol/L (22-30); Chloride 111 mmol/L (98-107); Glucose 93 mg/dL (74-99); Non-African American GFR(CKD) 87 (>60 ml/min/1.73 sqM); Potassium 3.5 mmol/L (3.5-5.1); Sodium 139 mmol/L (137-145)
[2019-09-09] MEDS ORDERED: AZITHROMYCIN 500 MG in SODIUM CHLORIDE 0.9% 250 ML IVPB SCH (09:00)
--- NOTE | 2019-09-09 09:55 | XR ---
EXAMINATION TYPE: XR chest 1V portable DATE OF EXAM: 09/09/2019 COMPARISON: 09/08/2019 HISTORY: Shortness of breath TECHNIQUE: Single frontal view of the chest is obtained. FINDINGS: Improved aeration of the right midlung. There is no focal air space opacity, pleural effus ion, or pneumothorax seen. The cardiac silhouette size is mildly enlarged. Diffuse osseous demineral ization is seen. Biapical lucency suggests mild emphysema. Skin folds overlie the left hemithorax. T he osseous structures are intact. IMPRESSION: No acute cardiopulmonary process. Biapical lucency suggests mild emphysematous change.
--- NOTE | 2019-09-09 10:53 | P.PN ---
Subjective Progress Note Date: 09/09/19 Patient seen and examined at bedside. He states that he is comfortable and denies any significant amount of pain. Ostomy continues to have function. He did have 2 febrile episodes overnight. Leukocytosis has increased to 14,000 today. Objective - Vital Signs Vital signs: Vital Signs Temp 98.2 F 09/09/19 05:25 Pulse 69 09/09/19 04:57 Resp 20 09/09/19 04:57 BP 124/44 09/09/19 04:57 Pulse Ox 95 09/09/19 04:57 Intake & Output 09/08/19 09/09/19 09/09/19 18:59 06:59 18:59 Intake Total 600 Output Total 200 200 Balance -200 400 Weight 64.093 kg Intake: Intake, IV Titration 600 Amount Sodium Chloride 0.9% 1, 600 000 ml @ 50 mls/hr IV . Q20H [facility] Rx#:[id number] Output: Stool 200 200 Other: Voiding Method Toilet Toilet # Voids 1 - Constitutional General appearance: Present: cooperative, no acute distress - Respiratory Details: No difficulty with respiration - Gastrointestinal Gastrointestinal Comment(s): Soft, nontender, nondistended, no rebound, no guarding, incision site is clean, dry and intact, ostomy is pink and patent with stool output - Musculoskeletal Musculoskeletal: Present: generalized weakness - Psychiatric Psychiatric: Present: A&O x's 3 - Labs CBC & Chem 7: 09/09/19 07:11 09/09/19 07:11 Labs: Abnormal Lab Results - Last 24 Hours (Table) 09/08/19 09/09/19 09/09/19 Range/Units 16:26 07:11 07:11 WBC 14.2 H (3.8-10.6) k/uL RBC 2.80 L (4.30-5.90) m/uL Hgb 8.9 L (13.0-17.5) gm/dL Hct 26.9 L (39.0-53.0) % Chloride 111 H (98-107) mmol/L Calcium 8.0 L (8.4-10.2) mg/dL Urine Protein 1+ H (Negative) Urine RBC 9 H (0-5) /hpf Urine Bacteria Rare H (None) /hpf Urine Mucus Moderate H (None) /hpf Assessment and Plan (1) Cancer of sigmoid colon Narrative/Plan: Postoperative day #4 from colostomy creation secondary to large bowel obstruction. - Continue soft diet - Continue to increase activity - Consult has been placed for ostomy nurse to provide instructions on ostomy care. We will also arrange for visiting nurse for assistance with new ostomy. - The patient is noted to have a febrile episodes for the second night and elevation in leukocytosis . Antibiotics have been started to treat possibility of pneumonia. At this point, he is denying any significant abdominal pain. If there is continued signs of an infectious process, we will consider CT of the abdomen and pelvis to rule out any intra-abdominal source. Long discussion was had with the patient and the patient's sister at bedside. They're agreeable with the plan. - Progressing slowly. Prognosis is very guarded due to stage IV metastatic colon cancer. Current Visit: Yes Status: Chronic Code(s): C18.7 - MALIGNANT NEOPLASM OF SIGMOID COLON SNOMED Code(s): 802488353
[2019-09-09] MEDS: PANTOPRAZOLE 40 MG/10 ML VIAL IV SCH (11:49)
[2019-09-09] MEDS: BRIMONIDINE TARTRATE 0.2% DROPS 5 ML BTL BOTH EYES SCH ×2 (11:49→21:13)
--- NOTE | 2019-09-09 16:20 | P.PN ---
Subjective Progress Note Date: 09/09/19 ( delayed charting patient seen at 10am) Principal diagnosis: abdominal pain Patient is an 79-year-old male with a past medical history of rectal adenocarcinoma, atrial fibrillation, glaucoma, and anemia who presented with large bowel obstruction. He ultimately underwent an colostomy creation on 09/[address] Delarosa. He has progressed well since surgery.. He has not wanted chemotherapy in the past but has completed radiation. He again met with medical oncology and was not interested in chemotherapy. Patient did began spiking fevers overnight on 09/07 and has an elevated white blood cell count. UA negative, LE doppler negative, initial CXR showed right midlung infiltrate and patient was started on rocephin and zithromx on 09/08. Repat CXR 09/09 showed no acute process, however patient continued to spike fevers and have an increasing WBC count. present at bedside. All questions answered. Explained that he has been increasing white blood cell count and fevers and possible early onset pneumonia and I recommended continuing IV antibiotics and monitoring his fever and white blood cell count. Patient seen and examined at bedside. Reports that he is feeling okay, diet intact, no nausea, no vomiting, no chest pain, no shortness of breath. Up and w alked the halls yesterday. Having good urine output. Reports using his incentive spirometer. Objective - Vital Signs Vital signs: Vital Signs Temp 98.3 F 09/09/19 11:46 Pulse 71 09/09/19 11:46 Resp 17 09/09/19 11:46 BP 110/50 09/09/19 11:46 Pulse Ox 94 L 09/09/19 11:46 Intake & Output 09/08/19 09/09/19 09/09/19 18:59 06:59 18:59 Intake Total 600 Output Total 200 200 Balance -200 400 Weight 64.093 kg Intake: Intake, IV Titration 600 Amount Sodium Chloride 0.9% 1, 600 000 ml @ 50 mls/hr IV . Q20H [facility] Rx#:[id number] Output: Stool 200 200 Other: Voiding Method Toilet Toilet Toilet # Voids 1 - Exam General: Ill-appearing, no distress, appears at stated age Derm: warm, dry Head: atraumatic, normocephalic, symmetric Eyes: EOMI, no lid lag, anicteric sclera Mouth: no lip lesion, mucus membranes moist Cardiovascular: S1S2 reg, no murmur, positive posterior tibial pulse bilateral, Lungs: Decreased breath sounds bilateral, no rhonchi, no rales , no accessory muscle use Abdominal: soft, +tender to palpation diffusely, no guarding, no appreciable organomegaly Ext: no gross muscle atrophy, no edema, no contractures Neuro: CN II-XI grossly intact, no focal neuro deficits Psych: Alert, oriented, appropriate affect - Labs CBC & Chem 7: 09/09/19 07:11 09/09/19 07:11 Labs: Abnormal Lab Results - Last 24 Hours (Table) 09/08/19 09/09/19 09/09/19 Range/Units 16:26 07:11 07:11 WBC 14.2 H (3.8-10.6) k/uL RBC 2.80 L (4.30-5.90) m/uL Hgb 8.9 L (13.0-17.5) gm/dL Hct 26.9 L (39.0-53.0) % Chloride 111 H (98-107) mmol/L Calcium 8.0 L (8.4-10.2) mg/dL Urine Protein 1+ H (Negative) Urine RBC 9 H (0-5) /hpf Urine Bacteria Rare H (None) /hpf Urine Mucus Moderate H (None) /hpf Assessment and Plan Assessment: Large bowel obstruction due to colon cancer of the sigmoid s/p ostomy formation - Mangaement per surgery -Has met with medical oncology. Not interested in chemotherapy. Medical oncolo gy encouraged him to ask him again should his opinion change. -Has been talked about palliative care and still making a decision. -Ostomy nurse consulted and went through teaching with patient. Post op fever with increasing WBC count, possible early PNA -chest x-ray right hilar infiltrate then repeat with clearing - urinalysis negative - Lower extremity venous Dopplers negative - rocephin and zithromax - follow fever profile and WBC Anemia, chronic -Iron studies show slightly low ferritin -Continue oral iron therapy, likely decreased absorption -Follow CBC Paroxysmal atrial fibrillation -Currently rate controlled and on any medications-follow heart rate -Not on any anticoagulant at baseline. DVT prophylaxis: Lovenox ordered but patient has not been taking this Discussed with: Patient, nursing, Anticipated discharge: per surgery Anticipated discharge place: Home with home health A total of 25 minutes was spent on the care of this complex patient more than 50% of the time was spent in counseling and care coordination.
[2019-09-09] MEDS: ENOXAPARIN 40 MG/0.4 ML SYRINGE SQ SCH (17:33)
[2019-09-09] MEDS: AZITHROMYCIN 500 MG in SODIUM CHLORIDE 0.9% 250 ML IVPB SCH (18:16)
[2019-09-09] MEDS: LATANOPROST 0.005% OPHTH DROPS 2.5 ML BTL BOTH EYES SCH (22:10)
[2019-09-10] MEDS: ACETAMINOPHEN TAB 325 MG TAB PO PRN (04:18)
[2019-09-10] MEDS: SODIUM CHLORIDE 0.9% 1,000 ML IV SCH (04:19)
[2019-09-10 07:33] LABS: HCT 25.6 % (39.0-53.0); HGB 8.3 gm/dL (13.0-17.5); MCH 31.2 pg (25.0-35.0); MCHC 32.4 g/dL (31.0-37.0); MCV 96.2 fL (80.0-100.0); Mean Platelet Volume 7.2; Platelet Count 221 k/uL (150-450); RBC 2.66 m/uL (4.30-5.90); RDW 12.8 % (11.5-15.5); WBC 10.7 k/uL (3.8-10.6)
[2019-09-10] MEDS: BRIMONIDINE TARTRATE 0.2% DROPS 5 ML BTL BOTH EYES SCH ×2 (07:38→19:35)
[2019-09-10] MEDS: PANTOPRAZOLE 40 MG/10 ML VIAL IV SCH (07:38)
[2019-09-10 07:54] LABS: African American GFR (CKD) >90 (>60 ml/min/1.73 sqM); Anion Gap 6 mmol/L; Blood Urea Nitrogen 13 mg/dL (9-20); Calcium 7.9 mg/dL (8.4-10.2); Carbon Dioxide 23 mmol/L (22-30); Chloride 111 mmol/L (98-107); Glucose 93 mg/dL (74-99); Non-African American GFR(CKD) 87 (>60 ml/min/1.73 sqM); Potassium 3.4 mmol/L (3.5-5.1); Sodium 140 mmol/L (137-145)
[2019-09-10] MEDS: IOPAMIDOL CONTRAST (ORAL USE) VIAL PO PRN ×2 (08:21→10:03)
[2019-09-10] MEDS ORDERED: POTASSIUM CHLORIDE ER 20 MEQ TAB.ER PO STA (10:38)
--- NOTE | 2019-09-10 12:44 | CT ---
EXAMINATION TYPE: CT abdomen pelvis w con DATE OF EXAM: 09/10/2019 COMPARISON: 08/30/2019 PET/CT HISTORY: 79-year-old male fever, postoperative, Recent colostomy TECHNIQUE: Contiguous axial scanning of the abdomen and pelvis following administration of 100 ml Iso destiney 300 IV contrast. Delayed images through the kidneys and coronal/sagittal reconstructions perform ed. CT DLP: 1069 mGycm Automated exposure control for dose reduction was used. FINDINGS: Heart borderline enlarged with trace pericardial effusion. Small bilateral pleural effusions with adj acent atelectasis. Tiny hiatal hernia. Small hypodense lesions within the liver are better seen with fatty contrast administration measuring up to 1.7 cm. Portal venous system is patent. Gallbladder is collapsed with circumferential wall thickening suggesting fluid overload state. Mild diffuse thickening left adrenal gland. Stable prominent left periaortic lymph nodes measuring up to 1.1 cm are unchanged. Diffuse anasarca change and edematous intra-abdominal fat. Anterior midline vertically oriented skin virginie with recent laparotomy. There is moderate to large stool burden with left lower quadrant colostomy. Some mild circumferential wall thickening of the colon at the level of the ostomy. Prostate gland measures 4.6 cm wide with multiple pelvic phleboliths. There is prominent air within t he bladder lumen. There is a large collection of mixed air, this again soft tissue, and mottled fluid measuring up to 1 0.3 x 7.5 cm wide. Surgical material is present at this site with possible fistulization to the poste rior wall of the bladder given the intraluminal bladder air. No free air seen throughout the abdomen. Abnormal circumferential thickening redemonstrated distal rectum. Bones: Degenerative changes at the hips. Degenerative changes SI joints. Bone island left iliac bone. Moderate to advanced degenerative disc disease throughout the lumbar spine. IMPRESSION: 1. INTERVAL LEFT ABDOMINAL SIGMOID COLOSTOMY. THERE IS SOME CIRCUMFERENTIAL THICKENING OF THE COLON A T THE COLOSTOMY SITE SUGGESTING SOME INFLAMMATION. 2. HOWEVER, THERE IS A VERY LARGE MIXED COLLECTION OF THICKENED SOFT TISSUE, MOTTLED FLUID, AND AIR A T THE MARKS'S POUCH MEASURING 10.3 X 7.5 CM. POSSIBLE BREAKDOWN OF THE STAPLE LINE AND ABSCESS FORM ATION. 3. IRREGULAR CIRCUMFERENTIAL THICKENING DISTAL RECTUM LIKELY CORRESPONDS TO THE SITE OF NEOPLASM. 4. THE ABSCESS HAS POOR DELINEATION WITH THE POSTERIOR WALL OF THE BLADDER AND THERE IS PROMINENT NON DEPENDENT BLADDER AIR. UNDERLYING RECTOVESICULAR FISTULA DIFFICULT TO EXCLUDE. CLINICALLY CORRELATE W ITH THE QUALITY OF THE PATIENT'S URINE. 5. SEVERE DIFFUSE ANASARCA CHANGE. SMALL PLEURAL EFFUSIONS WITH ADJACENT ATELECTASIS AND/OR CONSOLIDA TION. 6. KNOWN HEPATIC METASTASES AND RETROPERITONEAL LYMPHADENOPATHY.
[2019-09-10] MEDS ORDERED: DILTIAZEM 5 MG/ML 5 ML VIAL IVP STA (14:34)
[2019-09-10 14:37] LABS: Glucose,Whole Blood 133 mg/dL (75-99)
[2019-09-10] MEDS ORDERED: metroNIDAZOLE-NS PMX 500 MG in SALINE 1 100ML.BAG IVPB STA (14:45)
[2019-09-10] MEDS ORDERED: POTASSIUM CHLORIDE 20 MEQ in WATER FOR INJECTION 1 100ML.BAG IVPB STA (15:18)
--- NOTE | 2019-09-10 15:41 | P.PN ---
Subjective Progress Note Date: 09/10/19 Principal diagnosis: abdominal pain Patient is an 79-year-old male with a past medical history of rectal adenocarcinoma, atrial fibrillation, glaucoma, and anemia who presented with large bowel obstruction. He ultimately underwent an colostomy creation on 09/[address] Delarosa. He has progressed well since surgery.. He has not wanted chemotherapy in the past but has completed radiation. He again met with medical oncology and was not interested in chemotherapy. Patient did began spiking fevers overnight on 09/07 and has an elevated white blood cell count. UA negative, LE doppler negative, initial CXR showed right midlung infiltrate and patient was started on rocephin and zithromx on 09/08. Repat CXR 09/09 showed no acute process, however patient continued to spike fevers and have an increasing WBC count. Initially patient seen and examined at bedside at 1030. Denied chest pain, SOB, nausea, and vomiting. Had reported an episode of feeling that he was going to go into A fib last night and taking his own home "[employer]" for A fib which is all naturopathic. CTSP at 1445: High and low heart rate, low blood pressure Over the phone asked the nurses to palpation of the crash cart monitors have been able to see his heart rhythm when I arrived his blood pressure was 84/60 and heart rate was 178. On review of the bedside monitor he appeared t SVT and A. fib. I asked that an 18 be called and ordered IV Cardizem to be given. Proceeded with carotid massage and asking the patient to bear down. He then converted to normal sinus rhythm and repeat blood pressure was 112/84. Patient seen and examined at bedside. He states that he is feeling fine and denies any chest pain or shortness of breath. States he does not want any more fluids or medications. . Objective - Vital Signs Vital signs: Vital Signs Temp 97.9 F 09/10/19 11:57 Pulse 72 09/10/19 14:10 Resp 20 09/10/19 11:57 BP 102/70 09/10/19 14:15 Pulse Ox 99 09/10/19 11:57 Intake & Output 09/09/19 09/10/19 09/10/19 18:59 06:59 18:59 Intake Total 600 Output Total 400 102 550 Balance 200 -102 -550 Intake: Oral 600 Output: Urine 2 Stool 400 100 550 Other: Voiding Method Toilet Toilet Toilet # Voids 1 - Exam General: Ill-appearing, no distress, appears at stated age Derm: warm, dry Head: atraumatic, normocephalic, symmetric Eyes: EOMI, no lid lag, anicteric sclera Mouth: no lip lesion, mucus membranes moist Cardiovascular: S1S2 reg, no murmur, positive posterior tibial pulse bilateral, Lungs: Decreased breath sounds bilateral, no rhonchi, no rales , no accessory muscle use Abdominal: soft, non tender to palpation diffusely, no guarding, no appreciable organomegaly Ext: no gross muscle atrophy, no edema, no contractures Neuro: CN II-XI grossly intact, no focal neuro deficits Psych: Alert, oriented, appropriate affect CTSP Exam: Pale, diaphoretic, S1S2 tachycardiac, decreased bs bilateral - Labs CBC & Chem 7: 09/10/19 06:39 09/10/19 06:39 Labs: Abnormal Lab Results - Last 24 Hours (Table) 09/10/19 09/10/19 09/10/19 Range/Units 06:39 06:39 14:35 WBC 10.7 H (3.8-10.6) k/uL RBC 2.66 L (4.30-5.90) m/uL Hgb 8.3 L (13.0-17.5) gm/dL Hct 25.6 L (39.0-53.0) % Potassium 3.4 L (3.5-5.1) mmol/L Chloride 111 H (98-107) mmol/L POC Glucose (mg/dL) 133 H (75-99) mg/dL Calcium 7.9 L (8.4-10.2) mg/dL Assessment and Plan Assessment: SVT on arrival to see patient - preformed carotid message and had patient bare down He converted back to NSR. Check stat CBC, CMP, MG, and Phos, Trop. Consult cardio. Transfer to Se[facility] EKG review by myself NSR without significant ST-T wave changes. Large bowel obstruction due to colon cancer of the sigmoid s/p ostomy formation now with Large fluid collection/abscess at Jones's Pouch - add flagyl continue isaiah D/W Dr. Delarosa, likely OR today -Has met with medical oncology. Not interested in chemotherapy. Medical oncology encouraged him to ask him again should his opinion change. -Has been talked about palliative care and still making a decision. -Ostomy nurse consulted and went through teaching with patient. Anemia, chronic -Iron studies show slightly low ferritin -Continue oral iron therapy, likely decreased absorption -Follow CBC Paroxysmal atrial fibrillation -Currently rate controlled and on any medications-follow heart rate -Not on any anticoagulant at baseline. Pneumonia ruled out. stop zithromax. D/W daughter and patient plan of care and then are in agreement. DVT prophylaxis: Lovenox ordered but patient has not been taking this Discussed with: Patient, nursing,daughter Anticipated discharge: per surgery Anticipated discharge place: Home with home health A total of 30 minutes of critical care time spent on the complex care of this patient
[2019-09-10 15:43] LABS: INR 1.1 (<1.2); Prothrombin Time 11.4 sec (9.0-12.0)
[2019-09-10 15:53] LABS: ALT 28 U/L (4-49); AST 64 U/L (17-59); African American GFR (CKD) >90 (>60 ml/min/1.73 sqM); Albumin 2.4 g/dL (3.5-5.0); Alkaline Phosphatase 304 U/L (38-126); Anion Gap 6 mmol/L; Blood Urea Nitrogen 17 mg/dL (9-20); Carbon Dioxide 23 mmol/L (22-30); Chloride 109 mmol/L (98-107); Glucose 133 mg/dL (74-99); Magnesium 1.8 mg/dL (1.6-2.3); Non-African American GFR(CKD) 81 (>60 ml/min/1.73 sqM); Phosphorus 3.3 mg/dL (2.5-4.5); Potassium 3.9 mmol/L (3.5-5.1); Sodium 138 mmol/L (137-145); Total Bilirubin 0.6 mg/dL (0.2-1.3); Total Protein 5.1 g/dL (6.3-8.2)
[2019-09-10] MEDS ORDERED: metroNIDAZOLE-NS PMX 500 MG in SALINE 1 100ML.BAG IVPB SCH (16:00)
[2019-09-10] MEDS: metroNIDAZOLE-NS PMX 500 MG in SALINE 1 100ML.BAG IVPB SCH (16:12)
[2019-09-10] MEDS ORDERED: MAGNESIUM SULFATE-D5W PMX 1 GM in DEXTROSE/WATER 1 100ML.BAG IVPB ONE (17:00)
[2019-09-10 17:11] LABS: HCT 28.9 % (39.0-53.0); HGB 9.4 gm/dL (13.0-17.5); Hypochromasia Slight; MCH 31.4 pg (25.0-35.0); MCHC 32.4 g/dL (31.0-37.0); MCV 96.8 fL (80.0-100.0); Mean Platelet Volume 7.7; Platelet Count 289 k/uL (150-450); RBC 2.98 m/uL (4.30-5.90); RDW 12.8 % (11.5-15.5); WBC 13.1 k/uL (3.8-10.6)
--- NOTE | 2019-09-10 17:17 | P.PN ---
Subjective Progress Note Date: 09/10/19 Patient seen and examined at bedside. Denies significant abdominal pain. Ostomy is functioning. He did have a febrile episode overnight. Secondary to this, CT of the abdomen and pelvis was performed. He also did have an episode of A. fib with RVR for which he was seen by the hospitalist and was chemically converted back into normal sinus rhythm. Objective - Vital Signs Vital signs: Vital Signs Temp 97.9 F 09/10/19 11:57 Pulse 72 09/10/19 14:10 Resp 20 09/10/19 11:57 BP 102/70 09/10/19 14:15 Pulse Ox 99 09/10/19 11:57 Intake & Output 09/09/19 09/10/19 09/10/19 18:59 06:59 18:59 Intake Total 600 Output Total 400 102 550 Balance 200 -102 -550 Intake: Oral 600 Output: Urine 2 Stool 400 100 550 Other: Voiding Method Toilet Toilet Toilet # Voids 1 - Constitutional General appearance: Present: cooperative - Gastrointestinal Gastrointestinal Comment(s): Soft, appropriate tenderness, nondistended, no rebound, guarding, ostomy is pink and patent with output, incision site is clean, dry and intact - Musculoskeletal Musculoskeletal: Present: generalized weakness - Psychiatric Psychiatric: Present: A&O x's 3 - Labs CBC & Chem 7: 09/10/19 06:39 09/10/19 15:09 Labs: Abnormal Lab Results - Last 24 Hours (Table) 09/10/19 09/10/19 09/10/19 Range/Units 06:39 06:39 14:35 WBC 10.7 H (3.8-10.6) k/uL RBC 2.66 L (4.30-5.90) m/uL Hgb 8.3 L (13.0-17.5) gm/dL Hct 25.6 L (39.0-53.0) % Potassium 3.4 L (3.5-5.1) mmol/L Chloride 111 H (98-107) mmol/L Glucose (74-99) mg/dL POC Glucose (mg/dL) 133 H (75-99) mg/dL Calcium 7.9 L (8.4-10.2) mg/dL AST (17-59) U/L Alkaline Phosphatase (38-126) U/L Total Protein (6.3-8.2) g/dL Albumin (3.5-5.0) g/dL 09/10/19 Range/Units 15:09 WBC (3.8-10.6) k/uL RBC (4.30-5.90) m/uL Hgb (13.0-17.5) gm/dL Hct (39.0-53.0) % Potassium (3.5-5.1) mmol/L Chloride 109 H (98-107) mmol/L Glucose 133 H (74-99) mg/dL POC Glucose (mg/dL) (75-99) mg/dL Calcium 8.0 L (8.4-10.2) mg/dL AST 64 H (17-59) U/L Alkaline Phosphatase 304 H (38-126) U/L Total Protein 5.1 L (6.3-8.2) g/dL Albumin 2.4 L (3.5-5.0) g/dL Assessment and Plan (1) Cancer of sigmoid colon Narrative/Plan: Postoperative day #5 from colostomy creation secondary to large bowel obstruction. - CT of the abdomen and pelvis was performed secondary to recurrent fevers after surgery. On CT, the patient is noted to have an abscess in the pelvis, likely secondary to a rectal stump leak. He is not showing abdominal signs of peritonitis and does not appear to have a surgical abdomen on exam. However, due to the large abscess and concern for sepsis, I did recommend surgical intervention for laparotomy with abdominal washout. The patient and the patient's daughter did have multiple questions that were answered. I spent over 30 minutes in the patient's room discussing this case. After consideration, the patient states that he would not like to undergo surgery today and prefers to wait until tomorrow as he would like to consider his options. I did reinforce my concern for sepsis and septic shock due to a significant sized abscess. The patient did voices understanding of this and states he would like to wait until tomorrow for any surgical intervention. The patient's daughter also suggested that he go for surgery today, however the patient disagreed with her. I did discuss the case in depth with Dr. Marquis, the hospitalist that is currently involved in the patient's case, and we will plan to treat the infectious process with antibiotics at this time and plan for surgical intervention tomorrow per patient's request. Hospice care as a long-term measure was also discussed with the patient and the patient's family and is under consideration at this time by the family. Current Visit: Yes Status: Chronic Code(s): C18.7 - MALIGNANT NEOPLASM OF SIGMOID COLON SNOMED Code(s): 852596128
[2019-09-10] MEDS: ENOXAPARIN 40 MG/0.4 ML SYRINGE SQ SCH (19:29)
[2019-09-10] MEDS: LATANOPROST 0.005% OPHTH DROPS 2.5 ML BTL BOTH EYES SCH (19:36)
[2019-09-11] MEDS: metroNIDAZOLE-NS PMX 500 MG in SALINE 1 100ML.BAG IVPB SCH ×4 (00:59→22:51)
[2019-09-11] MEDS: SODIUM CHLORIDE 0.9% 1,000 ML IV SCH ×2 (05:19→17:02)
[2019-09-11 06:49] LABS: HCT 25.9 % (39.0-53.0); HGB 8.4 gm/dL (13.0-17.5); Hypochromasia Slight; MCH 31.1 pg (25.0-35.0); MCHC 32.6 g/dL (31.0-37.0); MCV 95.6 fL (80.0-100.0); Mean Platelet Volume 7.4; Platelet Count 272 k/uL (150-450); RBC 2.71 m/uL (4.30-5.90); RDW 12.5 % (11.5-15.5); WBC 9.6 k/uL (3.8-10.6)
[2019-09-11 07:03] LABS: African American GFR (CKD) >90 (>60 ml/min/1.73 sqM); Anion Gap 5 mmol/L; Blood Urea Nitrogen 15 mg/dL (9-20); Calcium 8.2 mg/dL (8.4-10.2); Carbon Dioxide 24 mmol/L (22-30); Chloride 110 mmol/L (98-107); Glucose 90 mg/dL (74-99); Magnesium 2.1 mg/dL (1.6-2.3); Non-African American GFR(CKD) 87 (>60 ml/min/1.73 sqM); Phosphorus 3.1 mg/dL (2.5-4.5); Potassium 4.2 mmol/L (3.5-5.1); Sodium 139 mmol/L (137-145)
[2019-09-11] MEDS: PANTOPRAZOLE 40 MG/10 ML VIAL IV SCH (08:48)
[2019-09-11] MEDS: BRIMONIDINE TARTRATE 0.2% DROPS 5 ML BTL BOTH EYES SCH ×2 (08:49→19:41)
--- NOTE | 2019-09-11 11:27 | CDI ---
Documentation Clarification Form Date: 09/11/2019 11:16:07 AM From: Milli GarciaLathamTAZ, CCDS Admit Date: 09/04/2019 11:45:00 AM Patient Name: Juan Daniel Dempsey Visit Number: [id number] Discharge Date: ATTENTION: The Clinical Documentation Specialists (CDI) and [facility] Coding Staff appreciate your assistance in clarifying documentation. Please respond to the clarification below the line at the bottom and electronically sign. The CDI & [facility] Coding staff will review the response and follow-up if needed. Please note: Queries are made part of the Legal Health Record. If you have any questions, please contact the author of this message via ITS. Dr. Duong Delarosa: Per the 09/10 Surgical Progress Note: "On CT, the patient is noted to have an abscess in the pelvis, likely secondary to a rectal stump leak." Patients Admitting Diagnosis: Presented with abdominal pain & bowel obstruction. Known to surgeon due to history of low anterior resection for sigmoid colon cancer December 2017. Post-Operative Diagnosis: Cancer of sigmoid colon. Large bowel obstruction. Found to have recurrence one year later. Had radiation but refused chemotherapy at the time. Diagnosed with progression of metastatic disease in the liver in August 2019. Procedure performed: End colostomy creation 09/05. History/Risk Factors: Paroxysmal Atrial Fibrillation, MVP, Anemia of chronic disease, Iron deficiency anemia, Occasional vertigo possibly associated with atrial fibrillation. Clinical Indicators: Per surgical note: recommended laparotomy with abdominal washout. Postoperative period also complicated by pneumonia, atelectasis & SVT. Treatment, currently: IV MagSulfate, IV Flagyl, IV Kcl, IV Azithromycin. In order to accurately reflect this patients severity of illness, please clarify if the post-operative diagnosis of rectal stump leak & pelvic abscess is: This is an expected post surgical condition, related to the patient's underlying medical comorbidities and personal medical history of metastatic colon carcinoma with history of radiation therapy. (Last Revision: December 2018) MTDD
[2019-09-11] MEDS ORDERED: ONDANSETRON 4 MG/2 ML VIAL IVP ONE (12:37)
[2019-09-11] MEDS ORDERED: LACTATED RINGERS 1,000 ML IV ONE (12:37)
[2019-09-11] MEDS ORDERED: DEXAMETHASONE SOD PHOSPHATE 10 MG/ML 1 ML VIAL IV ONE (12:38)
--- NOTE | 2019-09-11 13:07 | P.PN ---
Subjective Progress Note Date: 09/11/19 This is a pleasant 79-year-old gentleman with a documented history of hypertension, hyperlipidemia, diabetes, nicotine dependence, paroxysmal atrial fibrillation, moderate mitral regurgitation secondary to mitral valve prolapse, mild to moderate aortic regurg, who follows with Dr. Avitia in the office. He also has a history of rectal adenocarcinoma for which he chose not to go on any chemo, he did however have some radiation treatment. He presented to the hospital on this occasion with a large bowel obstruction and ultimately underwent surgery with Dr. Delarosa, overall the patient progressed well since surgery, on the fifth of this month he did spike fevers overnight and had an elevated white blood cell count. Yesterday the patient went into a rapid rhythm, an A team was called, as the patient was quite tachycardic,, Her heart rate was around 178, Blood pressure at that time 84/60. They were going to give the patient an IV bolus of Cardizem, before that, the primary care doctor did a carotid massage and the patient converted to normal sinus rhythm. I do not have a rhythm strip of the event, but it appears that the patient may have been in a supraventricular tachycardia according to the primary care doctor. It was then transferred to the cardiac unit. Blood pressure 150/60 with a heart rate in the 60s, 96% on room air. White blood cell count this morning is 9.6, hemoglobin 8.4, platelet count 272. Sodium 139, potassium 4.2, BUN 15, creatinine 0.7. Mag level 2.1, AST 64, ALT 28, alk phos 304. Troponin 0.022. Patient was seen and examined, denies any chest pain, no difficulty in breathing. Blood pressure 140/60 with a heart rate in the 60s, 96% on room air. Temperature 98.2. Objective - Vital Signs Vital signs: Vital Signs Temp 99.1 F 09/11/19 12:21 Pulse 68 09/11/19 12:21 Resp 18 09/11/19 12:21 BP 151/65 09/11/19 12:21 Pulse Ox 96 09/11/19 12:21 Intake & Output 09/10/19 09/11/19 09/11/19 18:59 06:59 18:59 Intake Total 150 Output Total 550 400 Balance -550 -250 Weight 69.6 kg Intake: Intake, IV Titration 150 Amount Magnesium Sulfate-D5w Pmx 100 1 gm In Dextrose/Water 1 100ml.bag @ 100 mls/hr IVPB ONCE ONE Rx#: [id number] cefTRIAXone 1 gm In 50 Sodium Chloride 0.9% 50 ml @ 100 mls/hr IVPB Q24H [facility] Rx#:[id number] Output: Urine 400 Stool 550 Other: Voiding Method Toilet Toilet # Voids 1 1 1 - Exam PHYSICAL EXAMINATION: GENERAL: 79-year-old gentleman in no acute distress at the time of my examination HEENT: Head is atraumatic, normocephalic. Pupils equal, round. Sclera anicteric. Conjunctiva are clear. Mucous membranes of the mouth are moist. Neck is supple. There is no elevated jugular venous pressure. No carotid bruit is heard. HEART EXAMINATION: Heart S1, S2 systolic murmur is heard . No murmur or gallop heard. CHEST EXAMINATION: Lungs are clear to auscultation and precussion. No chest wall tenderness is noted on palpation or with deep breathing. ABDOMEN: Soft, nontender. Bowel sounds are heard. No organomegaly noted. EXTREMITIES: 2+ peripheral pulses with no evidence of peripheral edema and no calf tenderness noted. NEUROLOGIC patient is awake, alert and oriented X3. . - Labs CBC & Chem 7: 09/11/19 06:02 09/11/19 06:02 Labs: Abnormal Lab Results - Last 24 Hours (Table) 09/10/19 09/10/19 09/10/19 Range/Units 14:35 15:09 15:09 WBC 13.1 H (3.8-10.6) k/uL RBC 2.98 L (4.30-5.90) m/uL Hgb 9.4 L (13.0-17.5) gm/dL Hct 28.9 L (39.0-53.0) % Chloride 109 H (98-107) mmol/L Glucose 133 H (74-99) mg/dL POC Glucose (mg/dL) 133 H (75-99) mg/dL Calcium 8.0 L (8.4-10.2) mg/dL AST 64 H (17-59) U/L Alkaline Phosphatase 304 H (38-126) U/L Total Protein 5.1 L (6.3-8.2) g/dL Albumin 2.4 L (3.5-5.0) g/dL 09/11/19 09/11/19 Range/Units 06:02 06:02 WBC (3.8-10.6) k/uL RBC 2.71 L (4.30-5.90) m/uL Hgb 8.4 L (13.0-17.5) gm/dL Hct 25.9 L (39.0-53.0) % Chloride 110 H (98-107) mmol/L Glucose (74-99) mg/dL POC Glucose (mg/dL) (75-99) mg/dL Calcium 8.2 L (8.4-10.2) mg/dL AST (17-59) U/L Alkaline Phosphatase (38-126) U/L Total Protein (6.3-8.2) g/dL Albumin (3.5-5.0) g/dL Assessment and Plan Plan: Assessment and plan #1 supraventricular tachycardia, converted to normal sinus rhythm after carotid massage. We will attempt to get a copy of the telemetry strip of the SVT #2 large bowel obstruction due to colon cancer, status post ostomy formation #3 chronic anemia #4 paroxysmal atrial fibrillation #5 hypertension #6 diabetes #7 hyperlipidemia Plan Obtain an echocardiogram with Doppler study, we will also put the patient on IV Lopressor, patient takes oral diuretics at home. Further recommendations to follow. DNP note has been reviewed, I agree with a documented findings and plan of care. Patient was seen and examined.
[2019-09-11] MEDS: ENOXAPARIN 40 MG/0.4 ML SYRINGE SQ SCH (13:36)
[2019-09-11] MEDS ORDERED: LIDOCAINE 1% INJ 10MG/ML (20 ML MDV) ONE (13:44)
[2019-09-11] MEDS ORDERED: NEOSTIGMINE 1 MG/ML 10 ML VIAL ONE (13:44)
[2019-09-11] MEDS ORDERED: SUCCINYLCHOLINE CHLORIDE 100 MG/5 ML SYR IV ONE (13:44)
[2019-09-11] MEDS ORDERED: fentaNYL (PF) 50 MCG/ML 2 ML AMP ONE (13:44)
[2019-09-11] MEDS ORDERED: PROPOFOL 10 MG/ML 20 ML VIAL IV ONE (13:44)
[2019-09-11] MEDS ORDERED: GLYCOPYRROLATE 0.2 MG/ML 2 ML VIAL ONE (13:44)
[2019-09-11] MEDS ORDERED: ROCURONIUM BROMIDE 10 MG/ML 10 ML VIAL IV ONE (13:44)
[2019-09-11] MEDS ORDERED: HYDROmorphone 0.5 MG/0.5 ML SYRINGE IVP ONE ×2 (16:02→16:12)
--- NOTE | 2019-09-11 16:45 | P.PN ---
Subjective Progress Note Date: 09/11/19 (delayed charting seen at 0745) Principal diagnosis: abdominal pain Patient is an 79-year-old male with a past medical history of rectal adenocarcinoma, atrial fibrillation, glaucoma, and anemia who presented with large bowel obstruction. He ultimately underwent an colostomy creation on 09/[address] Delarosa. He has progressed well since surgery.. He has not wanted c hemotherapy in the past but has completed radiation. He again met with medical oncology and was not interested in chemotherapy. Patient did began spiking fevers overnight on 09/07 and has an elevated white blood cell count. UA negative, LE doppler negative, initial CXR showed right midlung infiltrate and patient was started on rocephin and zithromx on 09/08. Repat CXR 09/09 showed no acute process, however patient continued to spike fevers and have an increasing WBC count. On 09/10 the patient remained SVT which resolved with carotid massage and vagal maneuvers. He also underwent CT abdomen and pelvis which showed an abscess near the Jones's pouch. Patient seen and examined at bedside. He reports no chest pain, shortness breath, nausea, vomiting. Still having ostomy output. No increased pain. He reports that he does not want to be kept alive long-term on machines in 2 weeks. He would be okay with small amounts of CPR intraoperatively. He states that he has a big stroke or something else like that he would definitely want hospice care. He would also consider hospice care for his cancer. He states that his family is aware. He is willing to proceed with surgery today. . Objective - Vital Signs Vital signs: Vital Signs Temp 99.8 F H 09/11/19 15:44 Pulse 69 09/11/19 16:15 Resp 16 09/11/19 16:15 BP 133/64 09/11/19 16:15 Pulse Ox 95 09/11/19 16:15 Intake & Output 09/10/19 09/11/19 09/11/19 18:59 06:59 18:59 Intake Total 150 900 Output Total 550 400 55 Balance -550 -250 845 Weight 69.6 kg 69.6 kg Intake: IV 900 Intake, IV Titration 150 Amount Magnesium Sulfate-D5w Pmx 100 1 gm In Dextrose/Water 1 100ml.bag @ 100 mls/hr IVPB ONCE ONE Rx#: [id number] cefTRIAXone 1 gm In 50 Sodium Chloride 0.9% 50 ml @ 100 mls/hr IVPB Q24H [facility] Rx#:[id number] Output: Urine 400 30 Stool 550 Estimated Blood Loss 25 Other: Voiding Method Toilet Toilet # Voids 1 1 2 - Exam General: Ill-appearing, no distress, appears at stated age Derm: warm, dry Head: atraumatic, normocephalic, symmetric Eyes: EOMI, no lid lag, anicteric sclera Mouth: no lip lesion, mucus membranes moist Cardiovascular: S1S2 reg, no murmur, positive posterior tibial pulse bilateral, Lungs: Decreased breath sounds bilateral, no rhonchi, no rales , no accessory muscle use Abdominal: soft, non tender to palpation diffusely, no guarding, no appreciable organomegaly, increased pelvic fullness Ext: no gross muscle atrophy, no edema, no contractures Neuro: CN II-XI grossly intact, no focal neuro deficits Psych: Alert, oriented, appropriate affect - Labs CBC & Chem 7: 09/11/19 06:02 09/11/19 06:02 Labs: Abnormal Lab Results - Last 24 Hours (Table) 09/10/19 09/11/19 09/11/19 Range/Units 15:09 06:02 06:02 WBC 13.1 H (3.8-10.6) k/uL RBC 2.98 L 2.71 L (4.30-5.90) m/uL Hgb 9.4 L 8.4 L (13.0-17.5) gm/dL Hct 28.9 L 25.9 L (39.0-53.0) % Chloride 110 H (98-107) mmol/L Calcium 8.2 L (8.4-10.2) mg/dL Assessment and Plan Assessment: Large bowel obstruction due to colon cancer of the sigmoid s/p ostomy formation now with abscess formation ini the hartmans pouch -isaiah Morales - Patient has consented to OR today -Has met with medical oncology. Not interested in chemotherapy. Medical oncology encouraged him to ask to see them again should his opinion change. -Has been talked about palliative care and still making a decision. -Ostomy nurse consulted and went through teaching with patient. SVT, resolved - cardio recs appreciated - tele Anemia, chronic -Iron studies show slightly low ferritin -Continue oral iron therapy on discharge, likely decreased absorption -Follow CBC Paroxysmal atrial fibrillation -Currently rate controlled and on any medications-follow heart rate -Not on any anticoagulant at baseline. DVT prophylaxis: Lovenox Discussed with: Patient, nursing, Anticipated discharge: per surgery Anticipated discharge place: Home with home health A total of 45 minutes of critical care time spent on the complex care of this patient
--- NOTE | 2019-09-11 18:03 | P.OP ---
Date of Procedure: 09/11/19 Preoperative Diagnosis: Intra-abdominal abscess Postoperative Diagnosis: Intra-abdominal abscess Rectal stump leak Bowel ischemia Procedure(s) Performed: Exploratory laparotomy Washout of abdomen Oversewing of rectal stump LUIS drain placement Anesthesia: AMEYA Surgeon: Duong Delarosa Pathology: other (Rectal stump) Condition: stable Disposition: floor Indications for Procedure: This is an 79-year-old male that presented to the emergency department initially secondary to large bowel obstruction. He is noted to have metastatic colon adenocarcinoma. Due to the large bowel obstruction, procedure was performed to create an end colostomy. The patient was informed prior to this procedure that the procedure would not be curative and would be palliative due to his metastatic colon adenocarcinoma. He has refused chemotherapy over the past 2 years. Postoperatively, initially he did well, however he began to have some elevation in leukocytosis along with febrile episodes. Secondary to this, CT of the abdomen and pelvis was performed that did show a large abscess formed in the pelvis with concern for rectal stump leak. Plan is for exploratory laparotomy with abdominal washout. The patient was explained the risks, benefits and alternatives to the procedure and did provide consent prior to attending the operating suite. Operative Findings: Foul-smelling purulent material was noted within the pelvis of the abdomen. This was irrigated. The rectal stump was noted to be necrotic and possibly ischemic. It was noted to be significantly thin-walled and quite foul-smelling. Due to this, portion of the rectal stump was resected and the resulting colotomy was oversewed. Due to the history of radiation and colonic mass in the deep pelvis, attempt was not made to resect the lesion as it is unresectable at this time. LUIS drain was left in place. I did discuss the case in depth with the family after surgery. At this point, if the rectal stump does have any ischemia and perforation, there is not enough remaining healthy rectum to be able to do any additional surgical intervention. Due to the metastatic colon adenocarcinoma, I did recommend palliative care and consideration for hospice. The patient's family is very understanding of this. Description of Procedure: The patient was brought into the operating suite and placed in supine position on the operating table. Sedation was performed by anesthesia and the patient did undergo endotracheal intubation. The patient was then prepped and draped in regular sterile fashion. The previous incision site was reopened and dissection was carried to the fascia. The previous fascial suture was cut and removed. The abdomen was entered and immediate foul-smelling fluid was noted to be present. Copious amounts of irrigation was placed in the abdomen and suctioned. The small bowel was then reduced to the right upper quadrant and Bookwalter retractor was placed. On examination of the rectal stump, the rectal stump was extremely thin-walled and appeared to be ischemic. There was not a significant amount of rectal tissue that appeared to be healthy proximal to the rectal lesion. Due to the history of radiation, a significant amount of adhesive scar tissue was noted in the pelvis and the rectal lesion at this point appears to be unresectable. It was decided, as this is a palliative case and non-curative, that as much of the ischemic portion of the bowel that could be removed would be resected in the resulting colotomy would be oversewed. Dissection was carried with cautery to remove the ischemic portion of the rectal stump. Oversewing was performed using running 2-0 Vicryl suture. There was no evidence of any additional bowel leakage. Copious amounts irrigation was placed into the abdomen and suctioned. A LUIS drain was placed in the pelvis and secured to the skin using a 2-0 nylon suture. The abdomen was then closed using a running looped PDS suture. Skin incision was closed with skin virginie. The patient was awakened in the operating suite and taken to postanesthesia care unit in stable condition. I did discuss the case in depth with the patient's family after the procedure. At this point, it is unclear whether the resulting rectal stump will be viable in the near future. The ischemia is likely secondary to multiple factors including radiation and over distention of the bowel during the large bowel obstruction. Any additional future rectal stump leak or perforation would likely be an operable due to the radiation scarring in the pelvis and an unresectable mass. There does not appear to be any additional viable rectal tissue. At this point, I did recommend palliative care and hospice management due to the metastatic colon adenocarcinoma.
[2019-09-11] MEDS: METOPROLOL TARTRATE 5 MG/5 ML VIAL IVP SCH (18:10)
[2019-09-11] MEDS: MORPHINE SULFATE 2 MG/ML SYRINGE IV PRN ×2 (18:11→22:51)
[2019-09-11] MEDS: LATANOPROST 0.005% OPHTH DROPS 2.5 ML BTL BOTH EYES SCH (19:41)
[2019-09-12] MEDS: SODIUM CHLORIDE 0.9% 1,000 ML IV SCH ×3 (00:38→19:49)
[2019-09-12] MEDS: METOPROLOL TARTRATE 5 MG/5 ML VIAL IVP SCH ×6 (02:17→22:57)
[2019-09-12] MEDS: MORPHINE SULFATE 2 MG/ML SYRINGE IV PRN ×2 (05:24→19:02)
[2019-09-12 06:58] LABS: HCT 29.5 % (39.0-53.0); HGB 9.8 gm/dL (13.0-17.5); Hypochromasia Slight; MCH 31.8 pg (25.0-35.0); MCHC 33.3 g/dL (31.0-37.0); MCV 95.4 fL (80.0-100.0); Mean Platelet Volume 7.2; Platelet Count 336 k/uL (150-450); RBC 3.09 m/uL (4.30-5.90); RDW 12.6 % (11.5-15.5); WBC 10.2 k/uL (3.8-10.6)
[2019-09-12 07:07] LABS: ALT 15 U/L (4-49); AST 22 U/L (17-59); African American GFR (CKD) >90 (>60 ml/min/1.73 sqM); Albumin 2.1 g/dL (3.5-5.0); Alkaline Phosphatase 186 U/L (38-126); Anion Gap 6 mmol/L; Blood Urea Nitrogen 16 mg/dL (9-20); Calcium 7.9 mg/dL (8.4-10.2); Carbon Dioxide 24 mmol/L (22-30); Chloride 109 mmol/L (98-107); Glucose 106 mg/dL (74-99); Magnesium 2.1 mg/dL (1.6-2.3); Non-African American GFR(CKD) 88 (>60 ml/min/1.73 sqM); Phosphorus 4.1 mg/dL (2.5-4.5); Potassium 4.6 mmol/L (3.5-5.1); Sodium 139 mmol/L (137-145); Total Bilirubin 0.5 mg/dL (0.2-1.3); Total Protein 4.6 g/dL (6.3-8.2)
[2019-09-12] MEDS: metroNIDAZOLE-NS PMX 500 MG in SALINE 1 100ML.BAG IVPB SCH ×3 (09:18→23:02)
[2019-09-12] MEDS: BRIMONIDINE TARTRATE 0.2% DROPS 5 ML BTL BOTH EYES SCH ×2 (09:19→19:47)
[2019-09-12] MEDS: PANTOPRAZOLE 40 MG/10 ML VIAL IV SCH (09:19)
--- NOTE | 2019-09-12 10:46 | CDI ---
Documentation Clarification Form Date: 09/12/2019 From: Milli Latham, CCS, CCDS Admit Date: 09/04/2019 11:45:00 AM Patient Name: Juan Daniel Dempsey Visit Number: [id number] Discharge Date: ATTENTION: The Clinical Documentation Specialists (CDI) and [facility] Coding Staff appreciate your assistance in clarifying documentation. Please respond to the clarification below the line at the bottom and electronically sign. The CDI & [facility] Coding staff will review the response and follow-up if needed. Please note: Queries are made part of the Legal Health Record. If you have any questions, please contact the author of this message via ITS. Dr. Duong Delarosa: Per the 09/10 surgical/attending progress note: "He is not showing abdominal signs of peritonitis and does not appear to have a surgical abdomen on exam. However, due to the large abscess and concern for sepsis, I did recommend surgical intervention for laparotomy with abdominal washout." History/Risk Factors: Atrial fibrillation, Rectal Cancer status post treatment, Mitral Valve Prolapse, Anemia, former smoker. Bowel resection 12/2017. Clinical Indicators: Presented with abdominal pain & constipation. Found to have recurrent metastatic colon cancer and is status post colostomy with subsequent abdominal washout as above. VS: T 97.4* on 09/04 up to 101.4 on 09/09, now 98.3. Low BP 09/10: 84/35 LAB: WBC: 7.3 - 14.2 (1.7), now 10.2; Lactic Acid: 0.9 09/04 No cultures. Treatment: Surgery as above, IV Cefazolin, IV Zofran, IV Decadron, IV Flagyl, IV Dilaudid & Toradol, IV Azithromycin, IV Rocephin, IV Kcl, IV MagSulfate, IV Lopressor In your professional opinion, please clarify if these findings signify one of the following conditions, whether the condition is POA, and cause, if known: Sepsis ruled out Sepsis ruled in o With Severe Sepsis o With Septic Shock Other, please specify Unable to determine Present on Admission: Yes or No Identify the (suspected) organism Link or clarify if there is associated (due to/with): Organ failure and/or Shock Currently, sepsis is ruled out MTDD
--- NOTE | 2019-09-12 11:53 | ECHOF ---
Referral Reason:svt MEASUREMENTS -------- HEIGHT: 177.8 cm WEIGHT: 47.6 kg BP: IVSd: 1.3 cm (0.6 - 1.1) LVIDd: 4.6 cm (3.9 - 5.3) LVPWd: 1.4 cm (0.6 - 1.1) IVSs: 2.4 cm LVIDs: 2.0 cm LVPWs: 2.2 cm LAESV Index (A-L): 34.66 ml/m Ao Diam: 3.6 cm (2.0 - 3.7) AV Cusp: 2.5 cm (1.5 - 2.6) LA Diam: 3.1 cm (2.7 - 3.8) MV EXCURSION: 34.306 mm (> 18.000) MV EF SLOPE: 78 mm/s (70 - 150) EPSS: 0.3 cm MV E Casimiro: 1.03 m/s MV DecT: 238 ms MV A Casimiro: 0.72 m/s MV E/A Ratio: 1.43 AR PHT: 635 ms RAP: 5.00 mmHg RVSP: 33.50 mmHg TAPSE: 19.03 mm FINDINGS -------- Sinus rhythm. This was a technically adequate study. The left ventricular size is normal. There is mild concentric left ventricular hypertrophy. Overa ll left ventricular systolic function is normal with, an EF between 55 - 60 %. Normal LAP Grade 1 D iastolic Dysfunction The right ventricle is normal in size. The right ventricular systolic function is normal. LA is moderately dilated 34-39 ml/m2 The right atrial size is normal. Aortic valve is trileaflet and is mildly thickened. There is mild aortic regurgitation. The mitral valve is normal. The mitral valve leaflets are mildly thickened. Moderate mitral regur gitation is present. There is moderate mitral valve prolapse , predominately an anteriorly directed jet. The tricuspid valve appears structurally normal. Moderate tricuspid regurgitation present. Right ventricular systolic pressure is normal at < 35 mmHg. Trace/mild (physiologic) pulmonic regurgitation. The aortic root size is normal. IVC Not well visulized. There is no pericardial effusion. CONCLUSIONS -------- 1. Sinus rhythm. 2. This was a technically adequate study. 3. The left ventricular size is normal. 4. There is mild concentric left ventricular hypertrophy. 5. Overall left ventricular systolic function is normal with, an EF between 55 - 60 %. 6. Normal LAP Grade 1 Diastolic Dysfunction 7. The right ventricle is normal in size. 8. The right ventricular systolic function is normal. 9. LA is moderately dilated 34-39 ml/m2 10. The right atrial size is normal. 11. Aortic valve is trileaflet and is mildly thickened. 12. There is mild aortic regurgitation. 13. The mitral valve is normal. 14. The mitral valve leaflets are mildly thickened. 15. Moderate mitral regurgitation is present. 16. There is moderate mitral valve prolapse. 17. , predominately an anteriorly directed jet. 18. The tricuspid valve appears structurally normal. 19. Moderate tricuspid regurgitation present. 20. Right ventricular systolic pressure is normal at < 35 mmHg. 21. Trace/mild (physiologic) pulmonic regurgitation. 22. The aortic root size is normal. 23. IVC Not well visulized. 24. There is no pericardial effusion. RETIREMENT SPECIALIST: Lauren Matthews RDCS
--- NOTE | 2019-09-12 12:12 | PN ---
PROGRESS NOTE Mr. Dempsey is in sinus rhythm today. He has history of paroxysmal atrial fibrillation. He also has had recurrent metastatic colon CA, underwent an exploratory laparotomy with the drainage of an abscess. However, he is in sinus rhythm, hemodynamically stable. He does not wish to take any anticoagulants or any other medications. S1, S2 heard normally. Lungs reveal improved air entry/abdomen exam was deferred. I am recommending that we will see him as needed and at this time no intervention is necessary. Thank you very much for the consult. MMODL / IJN: [id number] /
--- NOTE | 2019-09-12 12:32 | P.PN ---
Subjective Progress Note Date: 09/12/19 Patient seen and examined at bedside. Patient's sister and son are at bedside. He describes pressure in his lower abdomen that he believes is due to the Umair-Horvath drain. Urinary catheter in place. Denies any nausea or vomiting. Objective - Vital Signs Vital signs: Vital Signs Temp 98.3 F 09/12/19 09:05 Pulse 61 09/12/19 09:05 Resp 16 09/12/19 09:05 BP 134/63 09/12/19 09:05 Pulse Ox 95 09/12/19 09:05 Intake & Output 09/11/19 09/12/19 09/12/19 18:59 06:59 18:59 Intake Total 2100 910 960 Output Total 355 875 50 Balance 1745 35 910 Weight 69.6 kg 48 kg Intake: IV 900 Intake, IV Titration 1200 550 800 Amount Lactated Ringers 1,000 ml 1000 @ 0 mls/hr IV .[facility] Rx#:[id number] Sodium Chloride 0.9% 1, 400 700 000 ml @ 100 mls/hr IV . Q10H [facility] Rx#:[id number] cefTRIAXone 1 gm In 50 Sodium Chloride 0.9% 50 ml @ 100 mls/hr IVPB Q24H [facility] Rx#:[id number] metroNIDAZOLE-NS PMX 500 200 100 100 mg In Saline 1 100ml.bag @ 100 mls/hr IVPB Q8HR [facility] Rx#:[id number] Oral 360 160 Output: Drainage 300 100 50 Abdomen 300 100 50 Urine 30 775 Estimated Blood Loss 25 Other: Voiding Method Indwelling Catheter # Voids 2 - Constitutional General appearance: Present: cooperative - Gastrointestinal Gastrointestinal Comment(s): Soft, appropriate tenderness, nondistended, no rebound, no guarding, LUIS drain in place with serosanguineous drainage, mildly cloudy - Psychiatric Psychiatric: Present: A&O x's 3 - Labs CBC & Chem 7: 09/12/19 06:19 09/12/19 06:19 Labs: Abnormal Lab Results - Last 24 Hours (Table) 09/12/19 09/12/19 Range/Units 06:19 06:19 RBC 3.09 L (4.30-5.90) m/uL Hgb 9.8 L (13.0-17.5) gm/dL Hct 29.5 L (39.0-53.0) % Chloride 109 H (98-107) mmol/L Glucose 106 H (74-99) mg/dL Calcium 7.9 L (8.4-10.2) mg/dL Alkaline Phosphatase 186 H (38-126) U/L Total Protein 4.6 L (6.3-8.2) g/dL Albumin 2.1 L (3.5-5.0) g/dL Assessment and Plan (1) Cancer of sigmoid colon Narrative/Plan: Postoperative day #1, exploratory laparotomy with abdominal washout and rectal stump oversew - I had a long discussion with the patient and the patient's family at bedside. Findings from the procedure were discussed with the patient. The patient is open to discussion with palliative care and palliative care consult has been placed. All questions were answered. At this point, we can remove the Roldan catheter and begin the patient on a soft diet. Abdominal binder to be placed. - Prognosis is guarded due to the stage IV, metastatic colon cancer Current Visit: Yes Status: Chronic Code(s): C18.7 - MALIGNANT NEOPLASM OF SIGMOID COLON SNOMED Code(s): 676399131
--- NOTE | 2019-09-12 12:58 | P.PN ---
Subjective Progress Note Date: 09/12/19 (Delayed charting seen at 8:10 AM) Principal diagnosis: abdominal pain Patient is an 79-year-old male with a past medical history of rectal adenocarcinoma, atrial fibrillation, glaucoma, and anemia who presented with large bowel obstruction. He ultimately underwent an colostomy creation on 09/[address] Delarosa. He has progressed well since surgery.. He has not wanted chemotherapy in the past but has completed radiation. He again met with medical oncology and was not interested in chemotherapy. Patient did began spiking fevers overnight on 09/07 and has an elevated white blood cell count. UA negative, LE doppler negative, initial CXR showed right midlung infiltrate and patient was started on rocephin and zithromx on 09/08. Repat CXR 09/09 showed no acute process, however patient continued to spike fevers and have an increasing WBC count. On 09/10 the patient remained SVT which resolved with carotid massage and vagal maneuvers. He also underwent CT abdomen and pelvis which showed an abscess near the Jones's pouch. Patient underwent operative drainage of his abscess on 09/11/19 without any complications. Patient seen and examined at bedside. Feeling well today. Decreased ostomy output. No chest pain or shortness of breath. Complains of soreness in his abdominal muscles that is worse with movement. . Objective - Vital Signs Vital signs: Vital Signs Temp 98.3 F 09/12/19 09:05 Pulse 61 09/12/19 09:05 Resp 16 09/12/19 09:05 BP 134/63 09/12/19 09:05 Pulse Ox 95 09/12/19 09:05 Intake & Output 09/11/19 09/12/19 09/12/19 18:59 06:59 18:59 Intake Total 2100 910 960 Output Total 355 875 50 Balance 1745 35 910 Weight 69.6 kg 48 kg Intake: IV 900 Intake, IV Titration 1200 550 800 Amount Lactated Ringers 1,000 ml 1000 @ 0 mls/hr IV [facility] Rx#:[id number] Sodium Chloride 0.9% 1, 400 700 000 ml @ 100 mls/hr IV . Q10H [facility] Rx#:[id number] cefTRIAXone 1 gm In 50 Sodium Chloride 0.9% 50 ml @ 100 mls/hr IVPB Q24H [facility] Rx#:[id number] metroNIDAZOLE-NS PMX 500 200 100 100 mg In Saline 1 100ml.bag @ 100 mls/hr IVPB Q8HR [facility] Rx#:[id number] Oral 360 160 Output: Drainage 300 100 50 Abdomen 300 100 50 Urine 30 775 Estimated Blood Loss 25 Other: Voiding Method Indwelling Catheter # Voids 2 - Exam General: Ill-appearing, no distress, appears at stated age Derm: warm, dry Head: atraumatic, normocephalic, symmetric Eyes: EOMI, no lid lag, anicteric sclera Mouth: no lip lesion, mucus membranes moist Cardiovascular: S1S2 reg, no murmur, positive posterior tibial pulse bilateral, Lungs: Decreased breath sounds bilateral, no rhonchi, no rales , no accessory muscle use Abdominal: soft, + tender to palpation diffusely, no guarding, no appreciable organomegaly, increased pelvic fullness Ext: no gross muscle atrophy, no edema, no contractures Neuro: CN II-XI grossly intact, no focal neuro deficits Psych: Alert, oriented, appropriate affect - Labs CBC & Chem 7: 09/12/19 06:19 09/12/19 06:19 Labs: Abnormal Lab Results - Last 24 Hours (Table) 09/12/19 09/12/19 Range/Units 06:19 06:19 RBC 3.09 L (4.30-5.90) m/uL Hgb 9.8 L (13.0-17.5) gm/dL Hct 29.5 L (39.0-53.0) % Chloride 109 H (98-107) mmol/L Glucose 106 H (74-99) mg/dL Calcium 7.9 L (8.4-10.2) mg/dL Alkaline Phosphatase 186 H (38-126) U/L Total Protein 4.6 L (6.3-8.2) g/dL Albumin 2.1 L (3.5-5.0) g/dL Assessment and Plan Assessment: Large bowel obstruction due to colon cancer of the sigmoid s/p ostomy formation now with abscess at maria luisa's pouch s/p intraoperative I and D -Flagyl, rocephin - managmenet per surgery -Has met with medical oncology. Not interested in chemotherapy. Medical oncology encouraged him to ask to see them again should his opinion change. -Has been talked about palliative care and hospice again on 09/11. -Ostomy nurse consulted and went through teaching with patient. SVT, resolved - cardio recs appreciated 'echo: ef 55-60%, moderate MT, moderate TR, Grade 1 diastolic dysfunction - tele Anemia, chronic -Iron studies show slightly low ferritin -Continue oral iron therapy on discharge, likely decreased absorption -Follow CBC Paroxysmal atrial fibrillation -Currently rate controlled and on any medications-follow heart rate -Not on any anticoagulant at baseline. Prognosis guarded, spoke with the patient about palliative care and hospice on 09/11 and patient was agreeable for palliative care on discharge DVT prophylaxis: Lovenox Discussed with: Patient, nursing, Anticipated discharge: per surgery Anticipated discharge place: Home with home health A total of 25 minutes was spent on the care of this complex patient more than 50% of the time was spent in counseling and care coordination.
[2019-09-12] MEDS: ENOXAPARIN 40 MG/0.4 ML SYRINGE SQ SCH (16:55)
[2019-09-12] MEDS: LATANOPROST 0.005% OPHTH DROPS 2.5 ML BTL BOTH EYES SCH (21:07)
[2019-09-13] MEDS: MORPHINE SULFATE 2 MG/ML SYRINGE IV PRN (00:04)
[2019-09-13] MEDS: METOPROLOL TARTRATE 5 MG/5 ML VIAL IVP SCH (06:01)
[2019-09-13 06:18] LABS: HCT 30.1 % (39.0-53.0); HGB 9.7 gm/dL (13.0-17.5); MCH 30.6 pg (25.0-35.0); MCHC 32.1 g/dL (31.0-37.0); MCV 95.3 fL (80.0-100.0); Mean Platelet Volume 7.3; Platelet Count 342 k/uL (150-450); RBC 3.16 m/uL (4.30-5.90); RDW 13.1 % (11.5-15.5); WBC 10.5 k/uL (3.8-10.6)
[2019-09-13 06:41] LABS: African American GFR (CKD) >90 (>60 ml/min/1.73 sqM); Anion Gap 2 mmol/L; Blood Urea Nitrogen 21 mg/dL (9-20); Calcium 7.8 mg/dL (8.4-10.2); Carbon Dioxide 25 mmol/L (22-30); Chloride 109 mmol/L (98-107); Glucose 102 mg/dL (74-99); Non-African American GFR(CKD) 87 (>60 ml/min/1.73 sqM); Potassium 4.6 mmol/L (3.5-5.1); Sodium 136 mmol/L (137-145)
[2019-09-13] MEDS: PANTOPRAZOLE 40 MG/10 ML VIAL IV SCH (08:27)
[2019-09-13] MEDS: BRIMONIDINE TARTRATE 0.2% DROPS 5 ML BTL BOTH EYES SCH ×2 (08:27→20:18)
[2019-09-13] MEDS: SODIUM CHLORIDE 0.9% 1,000 ML IV SCH (08:28)
[2019-09-13] MEDS: metroNIDAZOLE-NS PMX 500 MG in SALINE 1 100ML.BAG IVPB SCH ×3 (08:28→23:05)
--- NOTE | 2019-09-13 08:57 | P.PN ---
Subjective Progress Note Date: 09/13/19 Principal diagnosis: abdominal pain Patient is an 79-year-old male with a past medical history of rectal adenocarcinoma, atrial fibrillation, glaucoma, and anemia who presented with large bowel obstruction. He ultimately underwent an colostomy creation on 09/[address] Delarosa. He has progressed well since surgery.. He has not wanted chemotherapy in the past but has completed radiation. He again met with medical oncology and was not interested in chemotherapy. Patient did began spiking fevers overnight on 09/07 and has an elevated white blood cell count. UA negative, LE doppler negative, initial CXR showed right midlung infiltrate and patient was started on rocephin and zithromx on 09/08. Repat CXR 09/09 showed no acute process, however patient continued to spike fevers and have an increasing WBC count. On 09/10 the patient went into SVT which resolved with carotid massage and vagal maneuvers. He also underwent CT abdomen and pelvis which showed an abscess near the Jones's pouch. Patient underwent operative drainage of his abscess on 09/11/19 without any complications. Patient seen and examined at bedside. Doing well, eating okay still not d rinking well, no chest pain, no SOB, abdominal pain tolerable. Had a long discussion and it seems he is most appropriate for Palliative care on discharge (due to need for follow-up after surgery, teaching in the home on ostomy care, and possible need for physical therapy) with plans on transitioning to hospice at the appropriate time. Also will be beneficial to have palliative care [employer] that can some out to home. . Objective - Vital Signs Vital signs: Vital Signs Temp 97.9 F 09/13/19 04:00 Pulse 66 09/13/19 04:00 Resp 18 09/13/19 04:05 BP 140/62 09/13/19 04:00 Pulse Ox 93 L 09/13/19 04:05 Intake & Output 09/12/19 09/13/19 09/13/19 18:59 06:59 18:59 Intake Total 5 600 50 Output Total 530 110 Balance 1495 490 50 Weight 70.9 kg Intake: Intake, IV Titration 1625 600 Amount Sodium Chloride 0.9% 1, 1425 600 000 ml @ 75 mls/hr IV . [id number] [facility] Rx#:[id number] metroNIDAZOLE-NS PMX 500 200 mg In Saline 1 100ml.bag @ 100 mls/hr IVPB Q8HR [facility] Rx#:[id number] Oral 400 50 Output: Drainage 130 110 Abdomen 130 110 Urine 400 Uretheral (Roldan) 200 Other: Voiding Method Toilet # Voids 1 1 - Exam General: non toxic, no distress, appears at stated age Derm: warm, dry Head: atraumatic, normocephalic, symmetric Eyes: EOMI, no lid lag, anicteric sclera Mouth: no lip lesion, mucus membranes moist Cardiovascular: S1S2 reg, no murmur, positive posterior tibial pulse bilateral, Lungs: Decreased breath sounds bilateral, no rhonchi, no rales , no accessory muscle use Abdominal: soft, nonender to palpation diffusely, no guarding, no appreciable organomegaly, increased pelvic fullness Ext: no gross muscle atrophy, no edema, no contractures Neuro: CN II-XI grossly intact, no focal neuro deficits Psych: Alert, oriented, appropriate affect - Labs CBC & Chem 7: 09/13/19 05:48 09/13/19 05:48 Labs: Abnormal Lab Results - Last 24 Hours (Table) 09/13/19 09/13/19 Range/Units 05:48 05:48 RBC 3.16 L (4.30-5.90) m/uL Hgb 9.7 L (13.0-17.5) gm/dL Hct 30.1 L (39.0-53.0) % Sodium 136 L (137-145) mmol/L Chloride 109 H (98-107) mmol/L BUN 21 H (9-20) mg/dL Glucose 102 H (74-99) mg/dL Calcium 7.8 L (8.4-10.2) mg/dL Assessment and Plan Assessment: Large bowel obstruction due to colon cancer of the sigmoid s/p ostomy formation now with abscess at maria luisa's pouch s/p intraoperative I and D -Flagyl, rocephin -managmenet per surgery -Not interested in chemotherapy. Medical oncology encouraged him to ask to see them again should his opinion change. -Plan will be for palliative care on discharge with transition to hospice at the appropriate time, he is a DNR and order up dated in the computer. - Patient has gone through ostomy education SVT, resolved - cardio recs appreciated echo: ef 55-60%, moderate MT, moderate TR, Grade 1 diastolic dysfunction, following on as needed basis - tele Anemia, chronic -Iron studies show slightly low ferritin -Continue oral iron therapy on discharge, likely decreased absorption -Follow CBC Paroxysmal atrial fibrillation -Currently rate controlled and on any medications-follow heart rate -Not on any anticoagulant at baseline. Palliative care on discharge. Transfer to medical surgical floor with tele DVT prophylaxis: Lovenox Discussed with: Patient, nursing, Anticipated discharge: per surgery Anticipated discharge place: Home with home health A total of 25 minutes was spent on the care of this complex patient more than 50% of the time was spent in counseling and care coordination.
--- NOTE | 2019-09-13 12:06 | P.PN ---
Subjective Progress Note Date: 09/13/19 Patient resting comfortably in bed with no complaints. No gas or stool in ostomy bag at this time Objective - Vital Signs Vital signs: Vital Signs Temp 97.9 F 09/13/19 04:00 Pulse 66 09/13/19 08:20 Resp 17 09/13/19 08:20 BP 122/60 09/13/19 08:20 Pulse Ox 93 L 09/13/19 08:20 Intake & Output 09/12/19 09/13/19 09/13/19 18:59 06:59 18:59 Intake Total 2025 600 50 Output Total 530 110 Balance 1495 490 50 Weight 70.9 kg Intake: Intake, IV Titration 1625 600 Amount Sodium Chloride 0.9% 1, 1425 600 000 ml @ 75 mls/hr IV . [id number] [facility] Rx#:[id number] metroNIDAZOLE-NS PMX 500 200 mg In Saline 1 100ml.bag @ 100 mls/hr IVPB Q8HR [facility] Rx#:[id number] Oral 400 50 Output: Drainage 130 110 Abdomen 130 110 Urine 400 Uretheral (Roldan) 200 Other: Voiding Method Toilet # Voids 1 1 1 - Constitutional General appearance: Present: cooperative - Respiratory Details: Nonlabored - Cardiovascular Rhythm: regular - Gastrointestinal Gastrointestinal Comment(s): Soft nontender nondistended dressing is clean dry and intact ostomy is pink and patent no stool or gas in bag - Psychiatric Psychiatric: Present: A&O x's 3 - Labs CBC & Chem 7: 09/13/19 05:48 09/13/19 05:48 Labs: Abnormal Lab Results - Last 24 Hours (Table) 09/13/19 09/13/19 Range/Units 05:48 05:48 RBC 3.16 L (4.30-5.90) m/uL Hgb 9.7 L (13.0-17.5) gm/dL Hct 30.1 L (39.0-53.0) % Sodium 136 L (137-145) mmol/L Chloride 109 H (98-107) mmol/L BUN 21 H (9-20) mg/dL Glucose 102 H (74-99) mg/dL Calcium 7.8 L (8.4-10.2) mg/dL Assessment and Plan Assessment: Recurrent stage IV colorectal cancer status post exploratory laparotomy with diverting colostomy secondary to obstruction Plan: No plans for any further acute surgical intervention. Agree with palliative care.
[2019-09-13] MEDS: ENOXAPARIN 40 MG/0.4 ML SYRINGE SQ SCH (17:10)
[2019-09-13] MEDS: LATANOPROST 0.005% OPHTH DROPS 2.5 ML BTL BOTH EYES SCH (21:16)
[2019-09-14] MEDS: metroNIDAZOLE-NS PMX 500 MG in SALINE 1 100ML.BAG IVPB SCH ×3 (07:47→23:44)
[2019-09-14] MEDS: PANTOPRAZOLE 40 MG/10 ML VIAL IV SCH (07:47)
[2019-09-14] MEDS: BRIMONIDINE TARTRATE 0.2% DROPS 5 ML BTL BOTH EYES SCH ×2 (07:48→21:18)
[2019-09-14] MEDS ORDERED: SIMETHICONE 80 MG CHEWABLE PO PRN (09:20)
--- NOTE | 2019-09-14 10:07 | XR ---
EXAMINATION TYPE: XR abdomen complete w decub , 4 VIEWS DATE OF EXAM ORDERED: 09/14/2019 HISTORY: ileus. COMPARISON: Previous study dated 09/04/2019. FINDINGS: There is blunting of both CP angles and I could not exclude small, bilateral effusions. Th ere is dilated small bowel with scattered air-fluid levels. There is, however contrast in the cecum f rom a recent CT scan. There is no evidence of free air. There are phleboliths within the pelvis. IMPRESSION: FINDINGS CONSISTENT WITH PARTIAL, SMALL BOWEL OBSTRUCTION. ILEUS IS FELT TO BE LESS LIKELY.
[2019-09-14 12:13] LABS: HCT 31.5 % (39.0-53.0); HGB 9.9 gm/dL (13.0-17.5); MCH 29.7 pg (25.0-35.0); MCHC 31.4 g/dL (31.0-37.0); MCV 94.9 fL (80.0-100.0); Mean Platelet Volume 6.8; Platelet Count 359 k/uL (150-450); RBC 3.32 m/uL (4.30-5.90); RDW 13.1 % (11.5-15.5); WBC 10.3 k/uL (3.8-10.6)
[2019-09-14 12:22] LABS: African American GFR (CKD) >90 (>60 ml/min/1.73 sqM); Anion Gap 3 mmol/L; Blood Urea Nitrogen 17 mg/dL (9-20); Calcium 7.8 mg/dL (8.4-10.2); Carbon Dioxide 25 mmol/L (22-30); Chloride 109 mmol/L (98-107); Glucose 106 mg/dL (74-99); Non-African American GFR(CKD) 86 (>60 ml/min/1.73 sqM); Sodium 137 mmol/L (137-145)
[2019-09-14] MEDS: ENOXAPARIN 40 MG/0.4 ML SYRINGE SQ SCH (15:34)
--- NOTE | 2019-09-14 15:34 | P.PN ---
Subjective Progress Note Date: 09/14/19 Patient resting comfortably in bed with no complaints. No gas or stool in ostomy bag at this time Objective - Vital Signs Vital signs: Vital Signs Temp 97.4 F L 09/14/19 08:00 Pulse 67 09/14/19 12:00 Resp 17 09/14/19 12:00 BP 131/66 09/14/19 12:00 Pulse Ox 95 09/14/19 12:00 Intake & Output 09/13/19 09/14/19 09/14/19 18:59 06:59 18:59 Intake Total 170 Output Total 40 50 Balance 130 -50 Weight 71.8 kg Intake: Oral 170 Output: Drainage 40 50 Abdomen 40 50 Other: Voiding Method Toilet # Voids 1 1 - Constitutional General appearance: Present: cooperative - Respiratory Details: nonlabored - Cardiovascular Rhythm: regular - Gastrointestinal Gastrointestinal Comment(s): S/NT/ND Ostomy pink and patent, No gas or stool in bag - Psychiatric Psychiatric: Present: A&O x's 3 - Labs CBC & Chem 7: 09/14/19 11:53 09/14/19 11:53 Labs: Abnormal Lab Results - Last 24 Hours (Table) 09/14/19 09/14/19 Range/Units 11:53 11:53 RBC 3.32 L (4.30-5.90) m/uL Hgb 9.9 L (13.0-17.5) gm/dL Hct 31.5 L (39.0-53.0) % Chloride 109 H (98-107) mmol/L Glucose 106 H (74-99) mg/dL Calcium 7.8 L (8.4-10.2) mg/dL Assessment and Plan Assessment: Recurrent stage IV colorectal cancer status post exploratory laparotomy with diverting colostomy secondary to obstruction Plan: No plans for any further acute surgical intervention. Agree with palliative care.
--- NOTE | 2019-09-14 17:22 | P.PN ---
Subjective Progress Note Date: 09/14/19 (delaye charting seen at 10am) Principal diagnosis: abdominal pain Patient is an 79-year-old male with a past medical history of rectal adenocarcinoma, atrial fibrillation, glaucoma, and anemia who presented with large bowel obstruction. He ultimately underwent an colostomy creation on 09/[address] Delarosa. He has progressed well since surgery.. He has not wanted ch emotherapy in the past but has completed radiation. He again met with medical oncology and was not interested in chemotherapy. Patient did began spiking fevers overnight on 09/07 and has an elevated white blood cell count. UA negative, LE doppler negative, initial CXR showed right midlung infiltrate and patient was started on rocephin and zithromx on 09/08. Repat CXR 09/09 showed no acute process, however patient continued to spike fevers and have an increasing WBC count. On 09/10 the patient went into SVT which resolved with carotid massage and vagal maneuvers. He also underwent CT abdomen and pelvis which showed an abscess near the Jones's pouch. Patient underwent operative drainage of his abscess on 09/11/19 without any complications. 09/13: wants palliative care and the eventual transition to hospice on discharge, 09/14: no output from ostomy overnight, increased fullness and bloating, Patient seen and examined at bedside. C/O feeling very full and increased belching, no ostomy output, decreased appetite due to feeling full. No chest pain or shortness of breath. small amount of nausea. Has not been able to sleep for 2 nights. . Objective - Vital Signs Vital signs: Vital Signs Temp 97.7 F 09/14/19 16:10 Pulse 68 09/14/19 16:10 Resp 17 09/14/19 16:10 BP 154/70 09/14/19 16:10 Pulse Ox 95 09/14/19 16:10 Intake & Output 09/13/19 09/14/19 09/14/19 18:59 06:59 18:59 Intake Total 170 250 Output Total 40 50 2 Balance 130 -50 248 Weight 71.8 kg Intake: Intake, IV Titration 250 Amount cefTRIAXone 1 gm In 50 Sodium Chloride 0.9% 50 ml @ 100 mls/hr IVPB Q24H [facility] Rx#:[id number] metroNIDAZOLE-NS PMX 500 200 mg In Saline 1 100ml.bag @ 100 mls/hr IVPB Q8HR [facility] Rx#:[id number] Oral 170 Output: Drainage 40 50 Abdomen 40 50 Urine 2 Other: Voiding Method Toilet # Voids 1 1 - Exam General: non toxic, no distress, appears at stated age Derm: warm, dry Head: atraumatic, normocephalic, symmetric Eyes: EOMI, no lid lag, anicteric sclera Mouth: no lip lesion, mucus membranes moist Cardiovascular: S1S2 reg, no murmur, positive posterior tibial pulse bilateral, Lungs: Decreased breath sounds bilateral, no rhonchi, no rales , no accessory muscle use Abdominal: soft, + tender to palpation RLQ, no guarding, no appreciable organomegaly, + distended, No ostomy output Ext: no gross muscle atrophy, no edema, no contractures Neuro: CN II-XI grossly intact, no focal neuro deficits Psych: Alert, oriented, appropriate affect - Labs CBC & Chem 7: 09/14/19 11:53 09/14/19 11:53 Labs: Abnormal Lab Results - Last 24 Hours (Table) 09/14/19 09/14/19 Range/Units 11:53 11:53 RBC 3.32 L (4.30-5.90) m/uL Hgb 9.9 L (13.0-17.5) gm/dL Hct 31.5 L (39.0-53.0) % Chloride 109 H (98-107) mmol/L Glucose 106 H (74-99) mg/dL Calcium 7.8 L (8.4-10.2) mg/dL Assessment and Plan Assessment: Large bowel obstruction due to colon cancer of the sigmoid s/p ostomy formation now with abscess at maria luisa's pouch s/p intraoperative I and D - check abdominal series to rule out obstruction, stat labs- shows possible SBO no nausea or vomiting at this time if develops possible NGT -Flagyl, rocephin -managmenet per surgery -Not interested in chemotherapy. Medical oncology encouraged him to ask to see them again should his opinion change. -Plan will be for palliative care on discharge with transition to hospice at the appropriate time, he is a DNR. - Patient has gone through ostomy education SVT, resolved - cardio recs appreciated echo: ef 55-60%, moderate MT, moderate TR, Grade 1 diastolic dysfunction, following on as needed basis - tele Anemia, chronic -Iron studies show slightly low ferritin -Continue oral iron therapy on discharge, likely decreased absorption -Follow CBC Paroxysmal atrial fibrillation -Currently rate controlled and on any medications-follow heart rate -Not on any anticoagulant at baseline. Palliative care on discharge. Transfer to medical surgical floor with tele DVT prophylaxis: Lovenox Discussed with: Patient, nursing, Anticipated discharge: per surgery Anticipated discharge place: Home with home health/ palliative A total of 25 minutes was spent on the care of this complex patient more than 50% of the time was spent in counseling and care coordination.
[2019-09-14] MEDS: MELATONIN 5 MG TABLET PO SCH (21:00)
[2019-09-14] MEDS: LATANOPROST 0.005% OPHTH DROPS 2.5 ML BTL BOTH EYES SCH (22:39)
[2019-09-15 06:44] LABS: HCT 32.6 % (39.0-53.0); HGB 10.2 gm/dL (13.0-17.5); MCH 29.7 pg (25.0-35.0); MCHC 31.4 g/dL (31.0-37.0); MCV 94.6 fL (80.0-100.0); Platelet Count 412 k/uL (150-450); RBC 3.45 m/uL (4.30-5.90); WBC 9.8 k/uL (3.8-10.6)
[2019-09-15 07:00] LABS: ALT 13 U/L (4-49); AST 26 U/L (17-59); African American GFR (CKD) >90 (>60 ml/min/1.73 sqM); Albumin 2.1 g/dL (3.5-5.0); Alkaline Phosphatase 117 U/L (38-126); Anion Gap 5 mmol/L; Blood Urea Nitrogen 15 mg/dL (9-20); Calcium 7.8 mg/dL (8.4-10.2); Carbon Dioxide 25 mmol/L (22-30); Chloride 106 mmol/L (98-107); Glucose 96 mg/dL (74-99); Non-African American GFR(CKD) 87 (>60 ml/min/1.73 sqM); Phosphorus 3.1 mg/dL (2.5-4.5); Potassium 3.7 mmol/L (3.5-5.1); Sodium 136 mmol/L (137-145); Total Bilirubin 0.3 mg/dL (0.2-1.3); Total Protein 4.6 g/dL (6.3-8.2)
[2019-09-15] MEDS: PANTOPRAZOLE 40 MG/10 ML VIAL IV SCH (09:13)
[2019-09-15] MEDS: metroNIDAZOLE-NS PMX 500 MG in SALINE 1 100ML.BAG IVPB SCH ×3 (09:14→23:07)
[2019-09-15] MEDS: BRIMONIDINE TARTRATE 0.2% DROPS 5 ML BTL BOTH EYES SCH ×2 (09:14→21:20)
--- NOTE | 2019-09-15 13:21 | P.PN ---
Subjective Progress Note Date: 09/15/19 Patient seen and examined at bedside. He is frustrated that he is still in the hospital today. Denying any nausea or vomiting but does complain of some belching. According to the patient, he did have some air in his ostomy-bag and very minimal output. Objective - Vital Signs Vital signs: Vital Signs Temp 97.9 F 09/15/19 08:00 Pulse 65 09/15/19 12:00 Resp 19 09/15/19 12:00 BP 148/66 09/15/19 12:00 Pulse Ox 94 L 09/15/19 12:00 Intake & Output 09/14/19 09/15/19 09/15/19 18:59 06:59 18:59 Intake Total 730 737 Output Total 62 475 50 Balance 668 -475 687 Weight 71.3 kg Intake: Intake, IV Titration 250 Amount cefTRIAXone 1 gm In 50 Sodium Chloride 0.9% 50 ml @ 100 mls/hr IVPB Q24H [facility] Rx#:[id number] metroNIDAZOLE-NS PMX 500 200 mg In Saline 1 100ml.bag @ 100 mls/hr IVPB Q8HR [facility] Rx#:[id number] Oral 480 737 Output: Drainage 60 115 50 Abdomen 60 115 50 Urine 2 360 Other: Voiding Method Toilet # Voids 1 - Constitutional General appearance: Present: no acute distress - Gastrointestinal Gastrointestinal Comment(s): Soft, appropriate tenderness, nondistended, no rebound, no guarding, ostomy is pink and patent - Psychiatric Psychiatric: Present: A&O x's 3 - Labs CBC & Chem 7: 09/15/19 05:42 09/15/19 05:42 Labs: Abnormal Lab Results - Last 24 Hours (Table) 09/15/19 09/15/19 Range/Units 05:42 05:42 RBC 3.45 L (4.30-5.90) m/uL Hgb 10.2 L (13.0-17.5) gm/dL Hct 32.6 L (39.0-53.0) % Sodium 136 L (137-145) mmol/L Calcium 7.8 L (8.4-10.2) mg/dL Total Protein 4.6 L (6.3-8.2) g/dL Albumin 2.1 L (3.5-5.0) g/dL Assessment and Plan (1) Cancer of sigmoid colon Narrative/Plan: Stage IV metastatic colon cancer, postoperative from abdominal washout and drain placement due to abscess formation and rectal stump leak after large bowel obstruction - Patient appears to be having an expected ileus at this time. He is noted to have air in the bag along with a minimal amount of output. LUIS drain with serosanguineous output - I had a very long discussion with the patient and the patient's family and did answer all questions. He has met with palliative care and would like to move forward with home hospice care. We will await for bowel function to return prior to discharge. - Patient is refusing a nasogastric tube at this time. - Will start scheduled Reglan. Current Visit: Yes Status: Chronic Code(s): C18.7 - MALIGNANT NEOPLASM OF SIGMOID COLON SNOMED Code(s): 672327045
--- NOTE | 2019-09-15 17:47 | P.PN ---
Subjective Progress Note Date: 09/15/19 Principal diagnosis: Small bowel obstruction, metastatic cancer Patient was seen and examined. No acute events overnight. Family is at bedside. Patient reports no complaints today. His mood is depressed. He denies any nausea or vomiting. Minimal to none stool output in ostomy bag. Objective - Vital Signs Vital signs: Vital Signs Temp 97.5 F L 09/15/19 16:00 Pulse 60 09/15/19 16:00 Resp 18 09/15/19 16:00 BP 145/72 09/15/19 16:00 Pulse Ox 97 09/15/19 16:00 Intake & Output 09/14/19 09/15/19 09/15/19 18:59 06:59 18:59 Intake Total 730 737 Output Total 62 475 350 Balance 668 -475 387 Weight 71.3 kg Intake: Intake, IV Titration 250 Amount cefTRIAXone 1 gm In 50 Sodium Chloride 0.9% 50 ml @ 100 mls/hr IVPB Q24H [facility] Rx#:[id number] metroNIDAZOLE-NS PMX 500 200 mg In Saline 1 100ml.bag @ 100 mls/hr IVPB Q8HR [facility] Rx#:[id number] Oral 480 737 Output: Drainage 60 115 100 Abdomen 60 115 100 Urine 2 360 Stool 250 Other: Voiding Method Toilet # Voids 1 - Exam General: [non toxic], [no distress], [appears at stated age] Derm: [warm], [dry] Head: [atraumatic], [normocephalic], [symmetric], [bitemporal wasting] Ext: [no gross muscle atrophy], [no edema], [no contractures] Neuro: [no focal neuro deficits] Psych: [Alert], [oriented], [appropriate affect] - Labs CBC & Chem 7: 09/15/19 05:42 09/15/19 05:42 Labs: Abnormal Lab Results - Last 24 Hours (Table) 09/15/19 09/15/19 Range/Units 05:42 05:42 RBC 3.45 L (4.30-5.90) m/uL Hgb 10.2 L (13.0-17.5) gm/dL Hct 32.6 L (39.0-53.0) % Sodium 136 L (137-145) mmol/L Calcium 7.8 L (8.4-10.2) mg/dL Total Protein 4.6 L (6.3-8.2) g/dL Albumin 2.1 L (3.5-5.0) g/dL Assessment and Plan Assessment: Large bowel obstruction due to colon cancer of the sigmoid status post ostomy formation now with abscess at Ben's pouch status post I&D SVT, resolved Anemia chronic disease Paroxysmal atrial fibrillation Patient has been evaluated by general surgery. Plan is to achieve bowel function prior to discharge home. Family has decided on home with hospice. Complete blood count shows stable hemoglobin. He is pending clinical improvement. Likely DC in 1-2 days.
[2019-09-15] MEDS: ENOXAPARIN 40 MG/0.4 ML SYRINGE SQ SCH (18:20)
[2019-09-15] MEDS: METOCLOPRAMIDE 5 MG/ML 2 ML VIAL IVP SCH ×2 (18:21→23:06)
[2019-09-15] MEDS: MELATONIN 5 MG TABLET PO SCH (21:20)
[2019-09-15] MEDS: LATANOPROST 0.005% OPHTH DROPS 2.5 ML BTL BOTH EYES SCH (21:21)
[2019-09-16 05:23] VITALS: TEMP 96.8
[2019-09-16] MEDS: METOCLOPRAMIDE 5 MG/ML 2 ML VIAL IVP SCH (06:40)
[2019-09-16] MEDS ORDERED: PANTOPRAZOLE 40 MG TABLET PO SCH (09:00)
[2019-09-16] MEDS: metroNIDAZOLE-NS PMX 500 MG in SALINE 1 100ML.BAG IVPB SCH (09:36)
[2019-09-16] MEDS: BRIMONIDINE TARTRATE 0.2% DROPS 5 ML BTL BOTH EYES SCH (09:37)
[2019-09-16 09:43] VITALS: BP 131/71; PULSE 62; RESP 16
--- NOTE | 2019-09-16 12:10 | P.DS ---
Providers Date of admission: 09/04/19 11:45 Attending physician: Duong Delarosa DO Consults: 09/04/19 13:24 Consult Physician Routine Consulting Provider: Silvia Cruz Consult Reason/Comments: Med Mgmt Do you want consulting provider notified?: Yes 09/10/19 15:39 Consult Physician Routine Consulting Provider: Trace Vizcaino Consult Reason/Comments: SVT, Hx of A fib Do you want consulting provider notified?: Yes Primary care physician: Mauri Ortiz - Discharge Diagnosis(es) (1) Cancer of sigmoid colon Current Visit: Yes Status: Chronic Hospital Course: 79-year-old male presented to the hospital with what appeared to be a large bowel obstruction. On workup, this was confirmed with imaging. He is known to me in the office secondary to recurrent colon cancer. He is noted to have had stage III colon cancer and had refused chemotherapy in the past. He has accepted only partial therapy for his colon cancer diagnosis and then recurrence. He is now noted to have metastasis of the colon cancer to the liver and is currently stage IV. His obstruction appeared to be at the level of the recurrent colon mass. Partial colostomy was performed, please refer to operative note. Initially, the patient was doing well postoperatively and diet was advanced as tolerated. He began having febrile episodes and on workup, was found to have a rectal stump perforation. Secondary to this, repeat expiratory laparotomy was performed with abdominal washout and rectal stump repair. Postoperatively, he did not have any febrile episodes and did not have any episodes of leukocytosis. His abdominal pain improved. LUIS drain was examined daily without any obvious purulent drainage. He was noted to be surgically stable for discharge. During his admission, multiple conversations were had with him and the family due to his metastatic, stage IV disease and goals of care. He has met with the palliative care team and will be advancing his care towards palliative care and hospice. Procedures: Exploratory laparotomy, colostomy creation Exploratory laparotomy, abdominal washout and rectal stump repair Patient Condition at Discharge: Poor Plan - Discharge Summary Discharge Rx Participant: No New Discharge Prescriptions: New Ciprofloxacin/Ciprofloxa HCl [Ciprofloxacin ER] 500 mg PO Q24HR 5 Days #5 tab metroNIDAZOLE [Flagyl] 500 mg PO Q8HR 5 Days #15 tab HYDROcodone/APAP 5-325MG [[place] 5-325] 1 tab PO Q6HR PRN 3 Days #12 tab PRN Reason: Pain Continue Latanoprost Ophth [Xalatan 0.005%] 1 drops BOTH EYES HS Iron 25mg 25 mg PO DAILY Magnesium Gluconate [Magonate] 500 mg PO DAILY Vitamin B Complex 1 cap PO DAILY Potassium 84 meq PO DAILY Cholecalciferol (Vitamin D3) [Vitamin D3] 2,000 unit PO DAILY Brimonidine Tartrate [Alphagan P 0.2% Ophth Soln] 1 drops BOTH EYES BID Discontinued Protacell 50 ( Unknown Med) 1 tab PO DAILY Immunokinoko ( Unknown Med) 2 tab PO TID Colostrum (Unknown Med) 1 dose PO BID Discharge Medication List Latanoprost Ophth [Xalatan 0.005%] 1 drops BOTH EYES HS 11/14/17 [History] Iron 25mg 25 mg PO DAILY 12/11/17 [History] Cholecalciferol (Vitamin D3) [Vitamin D3] 2,000 unit PO DAILY 12/18/18 [History] Magnesium Gluconate [Magonate] 500 mg PO DAILY 12/18/18 [History] Potassium 84 meq PO DAILY 12/18/18 [History] Vitamin B Complex 1 cap PO DAILY 12/18/18 [History] Brimonidine Tartrate [Alphagan P 0.2% Ophth Soln] 1 drops BOTH EYES BID 09/04/19 [History] Ciprofloxacin/Ciprofloxa HCl [Ciprofloxacin ER] 500 mg PO Q24HR 5 Days #5 tab 09/16/19 [Rx] HYDROcodone/APAP 5-325MG [[place] 5-325] 1 tab PO Q6HR PRN 3 Days #12 tab 09/16/19 [Rx] metroNIDAZOLE [Flagyl] 500 mg PO Q8HR 5 Days #15 tab 09/16/19 [Rx] Follow up Appointment(s)/Referral(s): [facility], [NON-STAFF] - 1 Week Mauri Ortiz MD [Primary Care Provider] - 1-2 days Duong Delarosa DO [Doctor of Osteopathic Medicine] - 10 Days Patient Instructions/Handouts: Colostomy Care (GEN), Colostomy Creation (GEN) Activity/Diet/Wound Care/Special Instructions: Abdominal Incision Care: Colostomy Care Instructions for Discharge: Last pouching system change: Date: 09.12.2019 Supplies from the hospital as follows for home: Convatec flange (barrier) moldable flat # [id number] (3) Convatec pouch with filter #[id number] (3) No sting prep pads (10) Ostomy Powder (1) Mr Dempsey is to empty the pouch in the bathroom when it is 1/3 to 1/2 full Mr Dempsey with the assistance of Home Health is to change the pouching system every 3 - 5 days [facility] will assist to arrange his ostomy pouching systems and supplies for permanent supply list in 1-2 weeks after discharge date for home use Pt requesting precut flanges and disposable pouches with filter Discharge Disposition: HOME WITH HOME HEALTH SERVICES
[2019-09-16 13:47] VITALS: BMI 22.6
--- NOTE | 2019-09-17 11:48 | CDI ---
Documentation Clarification Form Date: 09/17/19 From: Nara Weiss Phone: If you have a question about this query, please contact Maria C Angeles, Facility Service Associate at [phone] between 8am and 5pm. Admit Date: 09/04/19 Discharge Date: 09/16/19 Patient Name: Juan Daniel Dempsey Visit Number: [id number] ATTENTION: The Clinical Documentation Specialists (CDI) and [facility] Coding Staff appreciate your assistance in clarifying documentation. Please respond to the clarification below the line at the bottom and electronically sign. The CDI & [facility] Coding staff will review the response and follow-up if needed. Please note: Queries are made part of the Legal Health Record. If you have any questions, please contact the author of this message via ITS. Dear Dr. Duong Delarosa, Conflicting documentation has been found in the medical record: H&P, consult by Dr Rizo and DS: Cancer of sigmoid colon H&P states "metastatic recurrent colon cancer". 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
== END 2019-09-16 14:57 | disposition home health service (06) | DRG 329 ==
LOC: EC 08:52 → 5NMEDONC 11:45 → 3SCARD 09-10 14:56
PROVIDERS: ADMIT Surgery; ATTEND Surgery
PROC: 0D9670Z Drainage of Stomach with Drainage Device, Via Natural or Artificial Opening (ICD-10-PCS; 2019-09-04)
PROC: 0D1E0Z4 Bypass Large Intestine to Cutaneous, Open Approach (ICD-10-PCS; principal; 2019-09-05 14:15)
PROC: 0DQP0ZZ Repair Rectum, Open Approach (ICD-10-PCS; 2019-09-11)
PROC: 0DBP0ZZ Excision of Rectum, Open Approach (ICD-10-PCS; 2019-09-11)
PROC: 3E1M38Z Irrigation of Peritoneal Cavity using Irrigating Substance, Percutaneous Approach (ICD-10-PCS; 2019-09-11)
DX: C18.7 Malignant neoplasm of sigmoid colon (principal); K65.1 Peritoneal abscess; C78.7 Secondary malignant neoplasm of liver and intrahepatic bile duct; C77.2 Secondary and unspecified malignant neoplasm of intra-abdominal lymph nodes; K55.9 Vascular disorder of intestine, unspecified; D62 Acute posthemorrhagic anemia; J98.11 Atelectasis; I47.1 Supraventricular tachycardia; K56.7 Ileus, unspecified; D63.8 Anemia in other chronic diseases classified elsewhere; Z66 Do not resuscitate; Z51.5 Encounter for palliative care; I10 Essential (primary) hypertension; E78.5 Hyperlipidemia, unspecified; D50.9 Iron deficiency anemia, unspecified; E11.39 Type 2 diabetes mellitus with other diabetic ophthalmic complication; H42 Glaucoma in diseases classified elsewhere; H40.9 Unspecified glaucoma; K63.89 Other specified diseases of intestine; I08.0 Rheumatic disorders of both mitral and aortic valves; I48.0 Paroxysmal atrial fibrillation; H54.62 Unqualified visual loss, left eye, normal vision right eye; M65.30 Trigger finger, unspecified finger; Z79.899 Other long term (current) drug therapy; Z92.3 Personal history of irradiation; Z85.048 Personal history of other malignant neoplasm of rectum, rectosigmoid junction, and anus; Z87.891 Personal history of nicotine dependence; Z90.49 Acquired absence of other specified parts of digestive tract; Z98.890 Other specified postprocedural states; Z98.42 Cataract extraction status, left eye; Z98.41 Cataract extraction status, right eye; Z87.81 Personal history of (healed) traumatic fracture; Z88.0 Allergy status to penicillin; Y84.2 Radiological procedure and radiotherapy as the cause of abnormal reaction of the patient, or of later complication, without mention of misadventure at the time of the procedure; Z83.1 Family history of other infectious and parasitic diseases
CPT/HCPCS: 36415; 71045; 74018; 74021; 74177; 80048; 80053; 81001; 82728; 83540; 83550; 83605; 83690; 83735; 84100; 84484; 85025; 85027; 85610; 85730; 86850; 86900; 86901; 88108; 88304; 88305; 88307; 88341; 88342; 93005; 93306; 93970; 94760; 99285

== ENCOUNTER 2019-10-01 12:58 | Inpatient (IN) | payer MEDICARE ==
[2019-10-01 14:21] LABS: Calcium 8.3 mg/dL (8.4-10.2); Potassium 3.9 mmol/L (3.5-5.1); Total Bilirubin 0.6 mg/dL (0.2-1.3)
[2019-10-01 14:30] LABS: Basophils # (A) 0.1 k/uL (0-0.2); Basophils % (A) 2 %; Eosinophils % (A) 1 %; HCT 38.3 % (39.0-53.0); Lymphocytes # (A) 0.4 k/uL (1.0-4.8); Lymphocytes % (A) 10 %; MCH 29.7 pg (25.0-35.0); MCHC 31.4 g/dL (31.0-37.0); MCV 94.7 fL (80.0-100.0); Mean Platelet Volume 6.9; Monocytes # (A) 0.3 k/uL (0-1.0); Monocytes % (A) 7 %; Neutrophils # (A) 2.9 k/uL (1.3-7.7); Neutrophils % (A) 79 %; Platelet Count 293 k/uL (150-450); RBC 4.04 m/uL (4.30-5.90); RDW 15.1 % (11.5-15.5); WBC 3.6 k/uL (3.8-10.6)
--- NOTE | 2019-10-01 14:36 | ED ---
General Adult HPI - General Chief complaint: Recheck/Abnormal Lab/Rx Stated complaint: colostomy issue Time Seen by Provider: 10/01/19 14:07 Source: patient, RN notes reviewed, old records reviewed Mode of arrival: ambulatory Limitations: no limitations - History of Present Illness Initial comments: 79-year-old male patient past medical history of atrial fibrillation, colorectal cancer presents to ED for evaluation of colostomy. Patient reports that due to a small bowel obstruction 2 weeks ago he had a colostomy placed. Patient reportedly did have subsequent abscess formation resulting in surgical incision and drainage, was on approximately 5 days of outpatient oral antibiotics. Patient reports that the last 24 hours he has not had significant ostomy drainage. Does report that this morning he did have a small amount. Denies any area of pain. Denies any fevers or chills. Denies any other complaints. Systemic: Pt denies fatigue, fever/chills, rash. Pt denies weakness, night sweats, weight loss. Neuro: Pt denies headache, visual disturbances, syncope or pre-syncope. HEENT: Pt denies ocular discharge or irritation, otalgia, rhinorrhea, pharyngitis or notable lymphadenopathy. Cardiopulmonary: Pt denies chest pain, SOB, heart palpitations, dyspnea on exertion. Abdominal/GI: Pt denies abdominal pain, n/v/d. : Pt denies dysuria, burning w/ urination, frequency/urgency. Denies new onset urinary or bowel incontinence. MSK: Pt denies myalgia, loss of strength or function in extremities. Neuro: Pt denies new onset weakness, paresthesias. - Related Data Home Medications Medication Instructions Recorded Confirmed Latanoprost Ophth [Xalatan 0.005%] 1 drops BOTH EYES HS 11/14/17 09/04/19 Iron 25mg 25 mg PO DAILY 12/11/17 09/04/19 Cholecalciferol (Vitamin D3) 2,000 unit PO DAILY 12/18/18 09/04/19 [Vitamin D3] Magnesium Gluconate [Magonate] 500 mg PO DAILY 12/18/18 09/04/19 Potassium 84 meq PO DAILY 12/18/18 09/04/19 Vitamin B Complex 1 cap PO DAILY 12/18/18 09/04/19 Brimonidine Tartrate [Alphagan P 1 drops BOTH EYES BID 09/04/19 09/04/19 0.2% Ophth Soln] Previous Rx's Medication Instructions Recorded Ciprofloxacin/Ciprofloxa HCl 500 mg PO Q24HR 5 Days #5 tab 09/16/19 [Ciprofloxacin ER] HYDROcodone/APAP 5-325MG [[place] 1 tab PO Q6HR PRN 3 Days #12 tab 09/16/19 5-325] metroNIDAZOLE [Flagyl] 500 mg PO Q8HR 5 Days #15 tab 09/16/19 Allergies Allergy/AdvReac Type Severity Reaction Status Date / Time Penicillins Allergy Rash/Hives Verified 10/01/19 13:12 morphine AdvReac Severe Hallucinati Verified 10/01/19 13:12 ons Review of Systems ROS Statement: Those systems with pertinent positive or pertinent negative responses have been documented in the HPI. ROS Other: All systems not noted in ROS Statement are negative. 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 History of Any Multi-Drug Resistant Organisms: None Reported Past Surgical History: Bowel Resection, Orthopedic Surgery Additional Past Surgical History / Comment(s): Bowel resection December 2017, flexible sigmoidoscopies, EGD, lump removed from inside rt leg, ORIF rt wrist with plate/screw, bilateral cataracts removed, laser surgery bilateral eyes, L eye protein removal, steroid injections left eye, retina wrinkle surgery left eye.,. Bowel Resection December 2017, colostomy bag Past Anesthesia/Blood Transfusion Reactions: No Reported Reaction Past Psychological History: No Psychological Hx Reported Smoking Status: Former smoker Past Alcohol Use History: None Reported Past Drug Use History: None Reported - Past Family History Mother Family Medical History: Respiratory Disorder Additional Family Medical History / Comment(s): Mother had TB Father Family Medical History: No Reported History Additional Family Medical History / Comment(s): Father was healthy General Exam - General Exam Comments Initial Comments: Constitutional: NAD, AOX3, Pt has pleasant affect. HEENT: NC/AT, trachea midline, neck supple, no lymphadenopathy. Posterior pharynx non erythematous, without exudates. External ears appear normal, without discharge. Mucous membranes moist. Eyes PERRLA, EOM intact. There is no scleral icterus. No pallor noted. Cardiopulmonary: RRR, no murmurs, rubs or gallops, no JVD noted. Lungs CTAB in anterior and posterior mars. No peripheral edema. Abdominal exam: Abdomen soft and non-distended. Abdomen non-tender to palpation in all 4 quadrants. Bowel sounds active in LLQ. No hepatosplenomegaly. No ecchymosis. Colostomy evaluated, pink, small amount of stool noted. Neuro: CN II-XII grossly intact. No nuchal rigidity. No raccon eyes, no tirado sign, no hemotympanum. No cervical spinal tenderness. MSK: No posterior calf tenderness bilaterally, homans sign negative bilaterally. Posterior tibialis and radial pulse +2 bilaterally. Sensation intact in upper and lower extremities. Full active ROM in upper and lower extremities, 5/5 stregnth. Limitations: no limitations Course Vital Signs 10/01/19 10/01/19 10/01/19 13:08 15:45 16:05 Temperature 98.6 F Pulse Rate 97 80 Respiratory 18 18 Rate Blood Pressure 125/62 140/63 O2 Sat by Pulse 99 95 Oximetry Medical Decision Making - Medical Decision Making 79-year-old male patient past medical history of atrial fibrillation, colorectal cancer presents to ED for evaluation of colostomy. Patient reports that due to a small bowel obstruction 2 weeks ago he had a colostomy placed. Patient reportedly did have subsequent abscess formation resulting in surgical incision and drainage, was on approximately 5 days of outpatient oral antibiotics. Patient reports that the last 24 hours he has not had significant ostomy drainage. Does report that this morning he did have a small amount. Denies any area of pain. Denies any fevers or chills. Denies any other complaints. Patient vital signs stable, afebrile. Physical exam displayed: Abdomen soft and non-distended. Abdomen non-tender to palpation in all 4 quadrants. Bowel sounds active in LLQ. No hepatosplenomegaly. No ecchymosis. Colostomy evaluated, pink, small amount of stool noted. Laboratory investigations were obtained and revealed slight atropine year 3.6. Hemoglobin of 12.0 improved from prior, mild hypomagnesemia. Troponin mildly elevated at 0.058. EKG is nonischemic. CBC displayed no dilated bowel related to obstruction, however numerous air-fluid levels suggesting ileus. Patient admitted for 2 troponins and evaluation by Dr. Delarosa. Case discussed with Dr. Shepard. - Lab Data Result diagrams: 10/01/19 13:56 10/01/19 13:56 Lab Results 10/01/19 10/01/19 10/01/19 Range/Units 13:56 13:56 13:56 WBC 3.6 L (3.8-10.6) k/uL RBC 4.04 L (4.30-5.90) m/uL Hgb 12.0 L (13.0-17.5) gm/dL Hct 38.3 L (39.0-53.0) % MCV 94.7 (80.0-100.0) fL MCH 29.7 (25.0-35.0) pg MCHC 31.4 (31.0-37.0) g/dL RDW 15.1 (11.5-15.5) % Plt Count 293 (150-450) k/uL Neutrophils % 79 % Lymphocytes % 10 % Monocytes % 7 % Eosinophils % 1 % Basophils % 2 % Neutrophils # 2.9 (1.3-7.7) k/uL Lymphocytes # 0.4 L (1.0-4.8) k/uL Monocytes # 0.3 (0-1.0) k/uL Eosinophils # 0.0 (0-0.7) k/uL Basophils # 0.1 (0-0.2) k/uL Sodium 136 L (137-145) mmol/L Potassium 3.9 (3.5-5.1) mmol/L Chloride 103 (98-107) mmol/L Carbon Dioxide 24 (22-30) mmol/L Anion Gap 9 mmol/L BUN 14 (9-20) mg/dL Creatinine 1.00 (0.66-1.25) mg/dL Est GFR (CKD-EPI)AfAm 81 (>60 ml/min/1.73 sqM) Est GFR (CKD-EPI)NonAf 70 (>60 ml/min/1.73 sqM) Glucose 96 (74-99) mg/dL Calcium 8.3 L (8.4-10.2) mg/dL Magnesium 1.5 L (1.6-2.3) mg/dL Total Bilirubin 0.6 (0.2-1.3) mg/dL AST 26 (17-59) U/L ALT 12 (4-49) U/L Alkaline Phosphatase 129 H (38-126) U/L Troponin I (0.000-0.034) ng/mL Total Protein 6.0 L (6.3-8.2) g/dL Albumin 3.0 L (3.5-5.0) g/dL 10/01/19 Range/Units 13:56 WBC (3.8-10.6) k/uL RBC (4.30-5.90) m/uL Hgb (13.0-17.5) gm/dL Hct (39.0-53.0) % MCV (80.0-100.0) fL MCH (25.0-35.0) pg MCHC (31.0-37.0) g/dL RDW (11.5-15.5) % Plt Count (150-450) k/uL Neutrophils % % Lymphocytes % % Monocytes % % Eosinophils % % Basophils % % Neutrophils # (1.3-7.7) k/uL Lymphocytes # (1.0-4.8) k/uL Monocytes # (0-1.0) k/uL Eosinophils # (0-0.7) k/uL Basophils # (0-0.2) k/uL Sodium (137-145) mmol/L Potassium (3.5-5.1) mmol/L Chloride (98-107) mmol/L Carbon Dioxide (22-30) mmol/L Anion Gap mmol/L BUN (9-20) mg/dL Creatinine (0.66-1.25) mg/dL Est GFR (CKD-EPI)AfAm (>60 ml/min/1.73 sqM) Est GFR (CKD-EPI)NonAf (>60 ml/min/1.73 sqM) Glucose (74-99) mg/dL Calcium (8.4-10.2) mg/dL Magnesium (1.6-2.3) mg/dL Total Bilirubin (0.2-1.3) mg/dL AST (17-59) U/L ALT (4-49) U/L Alkaline Phosphatase (38-126) U/L Troponin I 0.058 H* (0.000-0.034) ng/mL Total Protein (6.3-8.2) g/dL Albumin (3.5-5.0) g/dL - EKG Data -: EKG Interpreted by Me (and Dr. Shepard ) EKG Comments: Ventricular rate 84,. And for 162, QRS 94, QT/QTc 406/479. Sinus rhythm with premature atrial complexes. Nonspecific T-wave abnormality. No concern for acute ischemia at this time. Disposition Clinical Impression: Ileus, Elevated troponin, Complication of ostomy Disposition: ADMITTED IP TO THIS HOSP Condition: Serious Is patient prescribed a controlled substance at d/c from ED?: No Referrals: Mauri Ortiz MD [Primary Care Provider] - 1-2 days
--- NOTE | 2019-10-01 14:44 | XR ---
EXAMINATION TYPE: XR KUB DATE OF EXAM: 10/01/2019 2:38 PM CLINICAL HISTORY: Constipation. Colostomy. TECHNIQUE: Single upright image of the abdomen is obtained. COMPARISON: 09/04/2019 FINDINGS: No dilated large or small bowel however air-fluid levels are seen scattered throughout the abdomen predominantly in the right lower quadrant and right upper quadrant. Colostomy site in the lef t lower quadrant. Extensive degenerative changes of the spine and levoscoliosis. Moderate degenerativ e changes of the hips. Diffuse osseous demineralization. Lung bases are well aerated. No pneumoperito neum. IMPRESSION: No dilated bowel to relate to obstruction however numerous air-fluid levels are scattered throughout suggesting ileus.
[2019-10-01] MEDS ORDERED: ASPIRIN 81 MG PO STA (16:16)
[2019-10-01] MEDS ORDERED: NITROGLYCERIN SL TABS 0.4 MG TAB SUBLINGUAL PRN (16:16)
[2019-10-01] MEDS ORDERED: MAGNESIUM OXIDE 400 MG TAB PO STA (16:21)
--- NOTE | 2019-10-01 17:27 | P.HPIM ---
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 Patient was discharged with 5 day course of antibiotics. He's been doing okay poor by mouth intake patient continued to be generally weak and tired easy fatigability doesn't do much around house. His colostomy is functional no reports of bleeding. However over the past few days family notices that the colostomy did not look right has visiting nurse evaluated him today and recommended that he goes to the hospital gets evaluated by surgery. They felt that the colostomy was buried and word more than supposed to be. And had one episode where colostomy content was leaked. Patient family reports that colostomy still functional last emptied this morning Patient otherwise denies any nausea vomiting abdominal pain chest pain bleeding trouble breathing. Fevers or chills. In the ED initial EKG suggested possible ST depression however had a lot of artifact, troponin was slightly elevated upon repeating EKG this has resolved. Patient again asymptomatic. Patient admitted for close monitoring overnight trending troponins and getting surgery evaluation for his colostomy Review of Systems Pertinent positives as noted in HPI. 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 Bowel Resection December 2017, colostomy bag Past Anesthesia/Blood Transfusion Reactions: No Reported Reaction Past Psychological History: No Psychological Hx Reported Smoking Status: Former smoker Past Alcohol Use History: None Reported Past Drug Use History: None Reported - Past Family History Mother Family Medical History: Respiratory Disorder Additional Family Medical History / Comment(s): Mother had TB Father Family Medical History: No Reported History Additional Family Medical History / Comment(s): Father was healthy Medications and Allergies Home Medications Medication Instructions Recorded Confirmed Type Latanoprost Ophth [Xalatan 0.005%] 1 drop BOTH EYES HS 11/14/17 10/01/19 History Brimonidine Tartrate [Alphagan P 1 drop BOTH EYES BID 09/04/19 10/01/19 History 0.2% Ophth Soln] Allergies Allergy/AdvReac Type Severity Reaction Status Date / Time Penicillins Allergy Rash/Hives Verified 10/01/19 17:06 morphine AdvReac Severe Hallucinati Verified 10/01/19 17:06 ons Physical Exam Vitals: Vital Signs Temp Pulse Resp BP Pulse Ox 10/01/19 17:16 98.9 F 81 18 130/64 96 10/01/19 16:05 95 10/01/19 15:45 80 18 140/63 10/01/19 13:08 98.6 F 97 18 125/62 99 Intake and Output 10/01/19 10/01/19 10/01/19 06:59 14:59 22:59 Other: Weight 60.328 kg Constitutional: No acute distress, patient looks tired and ill, cachectic Eyes: Anicteric sclerae, moist conjunctiva, Pupils equal round reactive to light ENMT: NC/AT Oropharynx clear, no erythema, exudates Neck: Supple, FROM, no masses, or JVD No carotid bruits No thyromegaly Lungs: Clear to auscultation Clear to percussion Normal respiratory effort, no accessory muscle use Cardiovascular: Heart regular in rate and rhythm, Systolic murmur murmurs, no gallops, or rubs Trace pedal edema bilaterally Abdominal: Soft, colostomy bag in place no tenderness no induration no erythema surrounding the ostomy Nontender, no guarding, rebound or rigidity Abdomen moving with respiration Normoactive bowel sounds No hepatomegaly, No splenomegaly No palpable mass No abdominal wall hernia noted Skin: Normal temperature, tone, texture, turgor No induration No subcutaneous nodules No rash, lesions No ulcers Extremities: No digital cyanosis No clubbing Pedal pulses intact and symmetrical Radial pulses intact and symmetrical No calf tenderness Psychiatric: Alert and oriented to person, place and time Appropriate affect fair judgment Neuro Muscles Strength 4/5 in all 4 extremities Sensation to light touch grossly present throughout Cranial nerves II-XII grossly intact No focal sensory deficits Lymphatics: no palpable cervical or supraclavicular , or inguinal lymph nodes Results CBC & Chem 7: 10/01/19 13:56 10/01/19 13:56 Labs: Abnormal Lab Results - Last 24 Hours (Table) 10/01/19 10/01/19 10/01/19 Range/Units 13:56 13:56 13:56 WBC 3.6 L (3.8-10.6) k/uL RBC 4.04 L (4.30-5.90) m/uL Hgb 12.0 L (13.0-17.5) gm/dL Hct 38.3 L (39.0-53.0) % Lymphocytes # 0.4 L (1.0-4.8) k/uL Sodium 136 L (137-145) mmol/L Calcium 8.3 L (8.4-10.2) mg/dL Magnesium 1.5 L (1.6-2.3) mg/dL Alkaline Phosphatase 129 H (38-126) U/L Troponin I (0.000-0.034) ng/mL Total Protein 6.0 L (6.3-8.2) g/dL Albumin 3.0 L (3.5-5.0) g/dL 10/01/19 Range/Units 13:56 WBC (3.8-10.6) k/uL RBC (4.30-5.90) m/uL Hgb (13.0-17.5) gm/dL Hct (39.0-53.0) % Lymphocytes # (1.0-4.8) k/uL Sodium (137-145) mmol/L Calcium (8.4-10.2) mg/dL Magnesium (1.6-2.3) mg/dL Alkaline Phosphatase (38-126) U/L Troponin I 0.058 H* (0.000-0.034) ng/mL Total Protein (6.3-8.2) g/dL Albumin (3.5-5.0) g/dL Assessment and Plan Assessment: 79-year-old male history of paroxysmal A. fib. Colon cancer with metastases to the liver status post surgery for bowel obstruction status post colostomy. Patient discharged 2 weeks ago last hospital course was complicated by abscess formation after surgery which was drained. Today patient comes in for reevaluation of his ostomy per recommendations from the visiting nurse as it did not look right to them. Patient was also found to have slightly elevated troponin with a initial EKG suggestive of ST depression later on was resolved. Patient asymptomatic admitted for close monitoring and evaluation by general surgery. Anticipated length of stay less than two midnight Plan: Reevaluation of ostomy Colon cancer stage IV with metastases to the liver is postsurgery Colostomy is functional last emptied this morning Encourage by mouth intake Glucerna 3 times a day with meals Add Marinol to enhance appetite Hypomagnesemia Frequent PVCs Replace magnesium Follow-up levels Slightly elevated troponin otherwise asymptomatic Cardiac enzyme monitoring DVT prophylaxis heparin subcu 3 times a day Generalized weakness and debility Encourage by mouth intake Add Glucerna with meals Check phosphorus level Check vitamin B12 level Check vitamin D level Paroxysmal A. fib currently in sinus rhythm Preformed a thorough record review from recent hospitalization for bowel obstruction due to colon cancer as mentioned above Surrogate decision-maker: Patient's son CODE STATUS: No code Discussed with: Patient, ER, RN Anticipated length of stay less than [address]: Home, patient refusing placement at subacute rehab he prefers home with home care A total of 60 minutes was spent on the care of this complex patient more than 50% of the time was spent in counseling and care coordination.
[2019-10-01] MEDS: SODIUM CHLORIDE 0.9% 1,000 ML IV SCH (17:31)
[2019-10-01] MEDS: MAGNESIUM SULFATE-D5W PMX 1 GM in DEXTROSE/WATER 1 100ML.BAG IVPB SCH ×2 (17:31→19:34)
[2019-10-01 21:08] LABS: Phosphorus 3.1 mg/dL (2.5-4.5)
[2019-10-01] MEDS: HEPARIN SODIUM,PORCINE 5,000 UNIT/ML 1 ML VIAL SQ SCH ×2 (23:18→23:33)
[2019-10-02 00:08] LABS: Appearance,Urine Cloudy (Clear); Bacteria,Urine Occasional /hpf; Bilirubin,Urine Negative (Negative); Blood,Urine Moderate (Negative); Color,Urine Yellow; Glucose,Urine (UA) Negative (Negative); Hyaline Casts,Urine 2 /lpf (0-2); Ketones,Urine 2+ (Negative); Leukocyte Esterase,Urine Large (Negative); Mucus,Urine Few /hpf; Nitrite,Urine Negative (Negative); Protein,Urine 1+ (Negative); RBC,Urine 15 /hpf (0-5); Specific Gravity,Urine 1.022 (1.001-1.035); Urobilinogen,Urine <2.0 mg/dL (<2.0); WBC,Urine >182 /hpf (0-5)
[2019-10-02 02:46] LABS: African American GFR (CKD) >90 (>60 ml/min/1.73 sqM); Anion Gap 6 mmol/L; Blood Urea Nitrogen 14 mg/dL (9-20); Calcium 7.8 mg/dL (8.4-10.2); Carbon Dioxide 25 mmol/L (22-30); Chloride 103 mmol/L (98-107); Cholesterol 118 mg/dL (<200); Glucose 101 mg/dL (74-99); HDL Cholesterol 41 mg/dL (40-60); LDL Cholesterol,Calculated 59 mg/dL (0-99); Magnesium 1.9 mg/dL (1.6-2.3); Non-African American GFR(CKD) 85 (>60 ml/min/1.73 sqM); Potassium 3.7 mmol/L (3.5-5.1); Sodium 134 mmol/L (137-145); Triglycerides 92 mg/dL (<150)
[2019-10-02] MEDS: SODIUM CHLORIDE 0.9% 1,000 ML IV SCH (04:32)
[2019-10-02 07:12] VITALS: BP 117/58; PULSE 80; TEMP 97.3
[2019-10-02] MEDS ORDERED: ASPIRIN 325 MG TAB PO SCH (09:00)
[2019-10-02 11:54] VITALS: RESP 16
[2019-10-02] MEDS: HEPARIN SODIUM,PORCINE 5,000 UNIT/ML 1 ML VIAL SQ SCH (12:19)
--- NOTE | 2019-10-02 14:16 | P.GSCN ---
History of Present Illness Consult date: 10/02/19 History of present illness: 79-year-old male that is well known to me with recent metastatic colon carcinoma. He recently underwent an urgent laparotomy secondary to large bowel obstruction due to recurrent colon cancer. He has opted in the past not to undergo the recommended collagenic recommendations of chemotherapy. He has called the office multiple times this week, initially with complaints of 2 minutes ostomy output and not obtaining a great seal on his ostomy. The next day he did call the office and stated that he did not have ostomy output for 24 hours. He was recommended to present to the emergency department if he was concerned of any obstructive process. On workup in the emergency department, it appeared that the patient did have an ileus. Since that time, he was admitted and has been having ostomy output. He denies any nausea or vomiting. According to her sister, he has not having much of an appetite at home. He states that he is eating, however not much. He denies any nausea or vomiting. He has no additional complaints at this time. 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 Bowel Resection December 2017, colostomy bag Past Anesthesia/Blood Transfusion Reactions: No Reported Reaction Past Psychological History: No Psychological Hx Reported Smoking Status: Former smoker Past Alcohol Use History: None Reported Past Drug Use History: None Reported - Past Family History Mother Family Medical History: Respiratory Disorder Additional Family Medical History / Comment(s): Mother had TB Father Family Medical History: No Reported History Additional Family Medical History / Comment(s): Father was healthy Medications and Allergies Home Medications Medication Instructions Recorded Confirmed Type Latanoprost Ophth [Xalatan 0.005%] 1 drop BOTH EYES HS 11/14/17 10/01/19 History Brimonidine Tartrate [Alphagan P 1 drop BOTH EYES BID 09/04/19 10/01/19 History 0.2% Ophth Soln] Allergies Allergy/AdvReac Type Severity Reaction Status Date / Time Penicillins Allergy Rash/Hives Verified 10/01/19 17:06 morphine AdvReac Severe Hallucinati Verified 10/01/19 17:06 ons Surgical - Exam Osteopathic Statement: *. No significant issues noted on an osteopathic structural exam other than those noted in the History and Physical/Consult. Vital Signs Temp Pulse Resp BP Pulse Ox 98.6 F 97 18 125/62 99 10/01/19 13:08 10/01/19 13:08 10/01/19 13:08 10/01/19 13:08 10/01/19 13:08 - General no distress - ENT normal nares, normal mucosa - Neck trachea midline - Respiratory No difficulty with respiration - Abdomen Soft, nontender, nondistended, no rebound, no guarding, ostomy is pink and patent and mildly retracted - Psychiatric oriented to time, oriented to person, oriented to place Results - Labs 10/01/19 13:56 10/02/19 02:10 Abnormal Lab Results - Last 24 Hours (Table) 10/01/19 10/01/19 10/01/19 Range/Units 13:56 13:56 13:56 WBC 3.6 L (3.8-10.6) k/uL RBC 4.04 L (4.30-5.90) m/uL Hgb 12.0 L (13.0-17.5) gm/dL Hct 38.3 L (39.0-53.0) % Lymphocytes # 0.4 L (1.0-4.8) k/uL Sodium 136 L (137-145) mmol/L Glucose (74-99) mg/dL Calcium 8.3 L (8.4-10.2) mg/dL Magnesium 1.5 L (1.6-2.3) mg/dL Alkaline Phosphatase 129 H (38-126) U/L Troponin I (0.000-0.034) ng/mL Total Protein 6.0 L (6.3-8.2) g/dL Albumin 3.0 L (3.5-5.0) g/dL Urine Protein (Negative) Urine Ketones (Negative) Urine Blood (Negative) Ur Leukocyte Esterase (Negative) Urine RBC (0-5) /hpf Urine WBC (0-5) /hpf Urine WBC Clumps (None) /hpf Urine Bacteria (None) /hpf Urine Mucus (None) /hpf 10/01/19 10/01/19 10/01/19 Range/Units 13:56 20:20 23:25 WBC (3.8-10.6) k/uL RBC (4.30-5.90) m/uL Hgb (13.0-17.5) gm/dL Hct (39.0-53.0) % Lymphocytes # (1.0-4.8) k/uL Sodium (137-145) mmol/L Glucose (74-99) mg/dL Calcium (8.4-10.2) mg/dL Magnesium (1.6-2.3) mg/dL Alkaline Phosphatase (38-126) U/L Troponin I 0.058 H* 0.047 H* (0.000-0.034) ng/mL Total Protein (6.3-8.2) g/dL Albumin (3.5-5.0) g/dL Urine Protein 1+ H (Negative) Urine Ketones 2+ H (Negative) Urine Blood Moderate H (Negative) Ur Leukocyte Esterase Large H (Negative) Urine RBC 15 H (0-5) /hpf Urine WBC >182 H (0-5) /hpf Urine WBC Clumps Few H (None) /hpf Urine Bacteria Occasional H (None) /hpf Urine Mucus Few H (None) /hpf 10/02/19 10/02/19 Range/Units 02:10 02:10 WBC (3.8-10.6) k/uL RBC (4.30-5.90) m/uL Hgb (13.0-17.5) gm/dL Hct (39.0-53.0) % Lymphocytes # (1.0-4.8) k/uL Sodium 134 L (137-145) mmol/L Glucose 101 H (74-99) mg/dL Calcium 7.8 L (8.4-10.2) mg/dL Magnesium (1.6-2.3) mg/dL Alkaline Phosphatase (38-126) U/L Troponin I 0.042 H* (0.000-0.034) ng/mL Total Protein (6.3-8.2) g/dL Albumin (3.5-5.0) g/dL Urine Protein (Negative) Urine Ketones (Negative) Urine Blood (Negative) Ur Leukocyte Esterase (Negative) Urine RBC (0-5) /hpf Urine WBC (0-5) /hpf Urine WBC Clumps (None) /hpf Urine Bacteria (None) /hpf Urine Mucus (None) /hpf Microbiology - Last 24 Hours (Table) 10/01/19 23:25 Urine Culture - Preliminary Urine,Clean Catch Diabetes panel 10/01/19 10/02/19 Range/Units 13:56 02:10 Sodium 136 L 134 L (137-145) mmol/L Potassium 3.9 3.7 (3.5-5.1) mmol/L Chloride 103 103 (98-107) mmol/L Carbon Dioxide 24 25 (22-30) mmol/L BUN 14 14 (9-20) mg/dL Creatinine 1.00 0.77 (0.66-1.25) mg/dL Glucose 96 101 H (74-99) mg/dL Calcium 8.3 L 7.8 L (8.4-10.2) mg/dL AST 26 (17-59) U/L ALT 12 (4-49) U/L Alkaline Phosphatase 129 H (38-126) U/L Total Protein 6.0 L (6.3-8.2) g/dL Albumin 3.0 L (3.5-5.0) g/dL Triglycerides 92 (<150) mg/dL HDL Cholesterol 41 (40-60) mg/dL Calcium panel 10/01/19 10/01/19 10/02/19 Range/Units 13:56 13:56 02:10 Calcium 8.3 L 7.8 L (8.4-10.2) mg/dL Phosphorus 3.1 (2.5-4.5) mg/dL Albumin 3.0 L (3.5-5.0) g/dL Pituitary panel 10/01/19 10/02/19 Range/Units 13:56 02:10 Sodium 136 L 134 L (137-145) mmol/L Potassium 3.9 3.7 (3.5-5.1) mmol/L Chloride 103 103 (98-107) mmol/L Carbon Dioxide 24 25 (22-30) mmol/L BUN 14 14 (9-20) mg/dL Creatinine 1.00 0.77 (0.66-1.25) mg/dL Glucose 96 101 H (74-99) mg/dL Calcium 8.3 L 7.8 L (8.4-10.2) mg/dL Adrenal panel 10/01/19 10/02/19 Range/Units 13:56 02:10 Sodium 136 L 134 L (137-145) mmol/L Potassium 3.9 3.7 (3.5-5.1) mmol/L Chloride 103 103 (98-107) mmol/L Carbon Dioxide 24 25 (22-30) mmol/L BUN 14 14 (9-20) mg/dL Creatinine 1.00 0.77 (0.66-1.25) mg/dL Glucose 96 101 H (74-99) mg/dL Calcium 8.3 L 7.8 L (8.4-10.2) mg/dL Total Bilirubin 0.6 (0.2-1.3) mg/dL AST 26 (17-59) U/L ALT 12 (4-49) U/L Alkaline Phosphatase 129 H (38-126) U/L Total Protein 6.0 L (6.3-8.2) g/dL Albumin 3.0 L (3.5-5.0) g/dL Assessment and Plan Plan: 79-year-old male with metastatic colon cancer and ileus - The ileus appears to be resolved at this point as the patient is having ostomy output - I did recommend continuing with protein supplementation due to poor nutrition - The patient does have palliative care nursing visits at home and is set up with home healthcare. I did recommend that he follows closely with these nurses and with their advice for ostomy care and any other medical management. I did also recommend to the patient that a long-term facility or rehab facility would be optimal for his recovery, however he states that he prefers to go home - No plan for acute surgical intervention
--- NOTE | 2019-10-02 15:23 | P.DS ---
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 Patient was discharged with 5 day course of antibiotics. He's been doing okay poor by mouth intake patient continued to be generally weak and tired easy fatigability doesn't do much around house. His colostomy is functional no reports of bleeding. However over the past few days family notices that the colostomy did not look right has visiting nurse evaluated him today and recommended that he goes to the hospital gets evaluated by surgery. They felt that the colostomy was buried and word more than supposed to be. And had one episode where colostomy content was leaked. Patient otherwise denies any nausea vomiting abdominal pain chest pain bleeding trouble breathing. Fevers or chills. In the ED initial EKG suggested possible ST depression however had a lot of artifact, troponin was slightly elevated upon repeating EKG this has resolved. Patient again asymptomatic. Troponin is trending down, patient asymptomatic. Ostomy is functional, no evidence of bleeding. Patient tolerating by mouth intake. Magnesium was replaced, follow-up showed magnesium level within normal limits 25 hydroxyvitamin D level within normal limits, vitamin B12 level within normal limits. Renal function within normal limits Patient seen and examined on day of discharge, has no complaints no chest pain or trouble breathing no fevers no chills. Tolerating diet. Patient looks way better compared to yesterday. Surgery evaluated the patient cleared patient for discharge, no recommendations for surgical intervention at this time. Patient is alert oriented to place and person, conversive pleasant Lungs clear to auscultation bilaterally no wheezing Cardiac normal S1 and S2 regular rate rhythm no murmurs, rubs Abdomen soft lax no tenderness palpation, BS sounds positive Extremities no leg edema bilaterally. Patient will be discharged stable clinical condition to home with home care. Patient has visiting nurse. Encourage increased by mouth intake patient tolerating Glucerna Patient will be given a prescription for Marinol to increased appetite 40 minutes were spent discharging this patient, and more than 50% of the time was spent in counseling the patient and family and in coordinating care. Patient Condition at Discharge: Stable Plan - Discharge Summary Discharge Rx Participant: No New Discharge Prescriptions: New Dronabinol [Marinol] 2.5 mg PO AC-BID 3 Days #6 cap Continue RX: Latanoprost Ophth [Xalatan 0.005%] 1 drop BOTH EYES HS RX: Brimonidine Tartrate [Alphagan P 0.2% Ophth Soln] 1 drop BOTH EYES BID Discharge Medication List RX: Latanoprost Ophth [Xalatan 0.005%] 1 drop BOTH EYES HS 11/14/17 [History] RX: Brimonidine Tartrate [Alphagan P 0.2% Ophth Soln] 1 drop BOTH EYES BID 09/04/19 [History] Dronabinol [Marinol] 2.5 mg PO AC-BID 3 Days #6 cap 10/02/19 [Rx] Follow up Appointment(s)/Referral(s): [facility], [NON-STAFF] - Mauri Ortiz MD [Primary Care Provider] - 1-2 days Patient Instructions/Handouts: Colostomy Care (DC) Discharge Disposition: HOME WITH HOME HEALTH SERVICES
== END 2019-10-02 15:45 | disposition home health service (06) | DRG 388 ==
LOC: EC 12:58 → 4SSUR 16:54
PROVIDERS: ADMIT Internal Medicine; ATTEND Internal Medicine
DX: K56.7 Ileus, unspecified (principal); E43 Unspecified severe protein-calorie malnutrition; C20 Malignant neoplasm of rectum; C78.7 Secondary malignant neoplasm of liver and intrahepatic bile duct; C77.9 Secondary and unspecified malignant neoplasm of lymph node, unspecified; I48.0 Paroxysmal atrial fibrillation; E83.42 Hypomagnesemia; H54.7 Unspecified visual loss; I34.1 Nonrheumatic mitral (valve) prolapse; I49.3 Ventricular premature depolarization; Z85.048 Personal history of other malignant neoplasm of rectum, rectosigmoid junction, and anus; Z87.891 Personal history of nicotine dependence; Z93.3 Colostomy status; Z88.5 Allergy status to narcotic agent; Z88.0 Allergy status to penicillin; H40.9 Unspecified glaucoma; Z98.42 Cataract extraction status, left eye; Z98.41 Cataract extraction status, right eye; R79.89 Other specified abnormal findings of blood chemistry; Z90.49 Acquired absence of other specified parts of digestive tract; Z51.5 Encounter for palliative care; Z66 Do not resuscitate; R53.81 Other malaise; Z83.6 Family history of other diseases of the respiratory system; Z79.899 Other long term (current) drug therapy
CPT/HCPCS: 36415; 74018; 80048; 80053; 80061; 81001; 82306; 82607; 83605; 83735; 84100; 84484; 85025; 87077; 87086; 87186; 93005; 94760; 99285

== ENCOUNTER 2019-10-06 11:34 | Emergency (ER) | payer MEDICARE ==
[2019-10-06 11:47] VITALS: RESP 19; TEMP 98.1
--- NOTE | 2019-10-06 13:17 | ED ---
Recheck HPI - General Chief Complaint: Recheck/Abnormal Lab/Rx Stated Complaint: colostomy issue Time Seen by Provider: 10/06/19 12:01 Source: patient, RN notes reviewed, old records reviewed Mode of arrival: wheelchair Limitations: no limitations - History of Present Illness Initial Comments: Patient 79-year-old male, with complaints of ill fitting colostomy care. Patient reports that he was delivered wrong size colostomy supplies at home, and his now having some irritation of her skin due to this. He states that he called his PCP who told him to come to the ER, to see Grace Mariscal RN. She reports that she was able to help him with the initial colostomy care. He denies any other complaints. - Related Data Home Medications Medication Instructions Recorded Confirmed Latanoprost Ophth [Xalatan 0.005%] 1 drop BOTH EYES HS 11/14/17 10/01/19 Brimonidine Tartrate [Alphagan P 1 drop BOTH EYES BID 09/04/19 10/01/19 0.2% Ophth Soln] Previous Rx's Medication Instructions Recorded Dronabinol [Marinol] 2.5 mg PO AC-BID 3 Days #6 cap 10/02/19 Allergies Allergy/AdvReac Type Severity Reaction Status Date / Time Penicillins Allergy Rash/Hives Verified 10/01/19 17:06 morphine AdvReac Severe Hallucinati Verified 10/01/19 17:06 ons Review of Systems ROS Statement: Those systems with pertinent positive or pertinent negative responses have been documented in the HPI. ROS Other: All systems not noted in ROS Statement are negative. 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 Bowel Resection December 2017, colostomy bag Past Anesthesia/Blood Transfusion Reactions: No Reported Reaction Past Psychological History: No Psychological Hx Reported Smoking Status: Former smoker Past Alcohol Use History: None Reported Past Drug Use History: None Reported - Past Family History Mother Family Medical History: Respiratory Disorder Additional Family Medical History / Comment(s): Mother had TB Father Family Medical History: No Reported History Additional Family Medical History / Comment(s): Father was healthy General Exam - General Exam Comments Initial Comments: 79-year-old male. Alert and oriented. No distress. Limitations: no limitations General appearance: alert, in no apparent distress Head exam: Present: atraumatic, normocephalic, normal inspection Eye exam: Present: normal appearance, PERRL, EOMI. Absent: scleral icterus, conjunctival injection, periorbital swelling ENT exam: Present: normal exam, mucous membranes moist Neck exam: Present: normal inspection. Absent: tenderness, meningismus, lymphadenopathy Respiratory exam: Present: normal lung sounds bilaterally. Absent: respiratory distress, wheezes, rales, rhonchi, stridor Cardiovascular Exam: Present: regular rate, normal rhythm, normal heart sounds. Absent: systolic murmur, diastolic murmur, rubs, gallop, clicks GI/Abdominal exam: Present: soft, tenderness (colostomy site in RUQ. no Surrounding erythema.), normal bowel sounds. Absent: distended, guarding, rebound, rigid Extremities exam: Present: normal inspection, full ROM, normal capillary refill. Absent: tenderness, pedal edema, joint swelling, calf tenderness Back exam: Present: normal inspection Neurological exam: Present: alert, oriented X3, CN II-XII intact Course Vital Signs 10/06/19 11:43 Temperature 98.1 F Pulse Rate 66 Respiratory 19 Rate Blood Pressure 114/60 O2 Sat by Pulse 100 Oximetry Medical Decision Making - Medical Decision Making 79-year-old male presents to ED for colostomy care. Patient requested of sock welcome to replace his colostomy care. At this time no signs of infection, or significant erythema or drainage in the skin. Did start well came to the emergency room and did lengthy education and colostomy care for the Patient. Patient was advised to follow up with his primary care doctor for further ass istance with this. Questions ANSWERED. Disposition Clinical Impression: Colostomy care Disposition: HOME SELF-CARE Condition: Good Instructions (If sedation given, give patient instructions): Colostomy Care (ED) Additional Instructions: Up with primary care physician. Return to ED if any alarming signs or symptoms occur. Is patient prescribed a controlled substance at d/c from ED?: No Referrals: Mauri Ortiz MD [Primary Care Provider] - 1-2 days Time of Disposition: 15:13
[2019-10-06 15:15] VITALS: BP 128/78; PULSE 68
== END 2019-10-06 15:21 | disposition home or self-care (01) ==
LOC: EC 11:34
DX: Z43.3 Encounter for attention to colostomy (principal); I48.91 Unspecified atrial fibrillation; Z88.0 Allergy status to penicillin; Z88.5 Allergy status to narcotic agent; Z87.891 Personal history of nicotine dependence; Z85.038 Personal history of other malignant neoplasm of large intestine
CPT/HCPCS: 99283

== ENCOUNTER → 2020-05-01 | Outpatient (CLI) | payer MEDICARE ==
--- NOTE | 2020-05-04 20:49 | PE ---
EXAMINATION TYPE: PET CT fusion skull to thigh DATE OF EXAM: 05/01/2020 COMPARISON: CT abdomen pelvis 09/10/2019 Prior PET/CT: 08/30/2019 HISTORY: Colorectal cancer status post colostomy September 2019 TECHNIQUE: Following the intravenous administration of 12.896 mCi of F-18 FDG, whole body images are performed from the skull base to the midthigh. Images are reviewed on the computer in the coronal, axial, and sagittal planes. Reconstructed rotating images are created on independent workstation and reviewed on the computer. A localization and attenuation correction CT is performed in conjunction with the PET scan. SCAN: Subsequent Scan Blood glucose: 98 mg/dL FINDINGS: NECK: No suspicious metabolic activity. THORAX: No suspicious metabolic activity. ABDOMEN/PELVIS: Significantly increased size, number, and marked hypermetabolic activity of hepatic m etastases versus 08/22/2019 PET/CT and 09/10/2019 CT comparison. There is increased retroperitoneal lym phadenopathy primarily left para-aortic, measuring up to 3.0 cm at the level of the kidneys (3:164), previously 1.1 cm on 09/20/2019 CT comparison. Within the left lower quadrant and pelvis, and the juju on of the previously questioned abscess and dehiscence of the Jones's pouch, there is solid soft ti ssue density measuring up to at least 8.7 x 6.1 cm which is markedly hypermetabolic and contiguous wi th the anterior rectal stump and urinary bladder. Within the superolateral aspect of this soft tissue density there is a focus of extraluminal gas with non hypermetabolic wall thickening (3:202) measuri ng up to 7.1 x 3.3 cm. OSSEOUS STRUCTURES: No suspicious metabolic activity. LOCALIZATION CT: Cardiomegaly and small pericardial effusion. Calcified coronary artery disease. Left lower quadrant colostomy. IMPRESSION: Immediately increased metastatic colorectal cancer of the abdomen and pelvis: 1. Increased size, number, and hypermetabolic activity of numerous hepatic metastases. 2. Increased hypermetabolic retroperitoneal lymphadenopathy 3. In the region of the Jones's pouch previously described dehiscence and abscess on 09/10/2019 CT co mparison, there is now a large pelvic and left lower quadrant hypermetabolic soft tissue density norma uring at least 8.7 x 6.1 cm, which is contiguous with the anterior Jones's pouch and the urinary bl adder. At the superior aspect of the hypermetabolic soft tissue there is a large 7.1 x 3.3 cm air lev el with non hypermetabolic wall thickened rim. Findings likely represent tumoral abscess. 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 4. No metastatic disease of the neck or thorax.
== END | disposition home or self-care (01) ==
LOC: RADPETMAIN 10:52
PROVIDERS: ATTEND Registered Nurse
DX: C19 Malignant neoplasm of rectosigmoid junction (principal); C78.7 Secondary malignant neoplasm of liver and intrahepatic bile duct; R59.0 Localized enlarged lymph nodes; C18.8 Malignant neoplasm of overlapping sites of colon; Z93.3 Colostomy status
CPT/HCPCS: 78815; A9552